=== PATIENT | female | born 1955 | race Hispanic/Latino ===

== ENCOUNTER 2017-08-04 09:46 | Inpatient (IN) | payer BC ==
[2017-08-04 10:49] LABS: Absolute Lymphocytes (CBC) 0.9 K/uL (0.7-4.9); Absolute Monocytes 0.1 K/uL (0.1-1.3); Absolute Neutrophil 1.9 K/uL (1.8-8.0); Basophils % 0.6 % (0-1.3); Hematocrit 38.5 % (36.0-45.0); Lymphocytes % 28.7 % (15.3-44.8); MCH 29.3 pg (27.0-35.0); MCV 90.8 fL (80-100); Monocytes % 4.7 % (3.3-12.3); RBC Red Blood Cell Count 4.24 M/uL (3.86-4.86)
[2017-08-04 10:52] LABS: Protime INR 0.97
[2017-08-04 10:57] LABS: Potassium 3.9 mEq/L (3.6-5.0)
--- NOTE | 2017-08-04 11:03 | RAD REPORT ---
EXAM DESCRIPTION: Danita Single View08/04/2017 10:55 am CLINICAL HISTORY: Chest pain COMPARISON: July 2016 FINDINGS: The lungs appear clear of acute infiltrate. The heart is normal size IMPRESSION: No acute abnormalities displayed
[2017-08-04] MEDS ORDERED: NA CHLORIDE 0.9% 500 ML ONE (11:13)
--- NOTE | 2017-08-04 11:22 | RAD REPORT ---
EXAM DESCRIPTION: CT - CTHCSPWOC - 08/04/2017 10:54 am CLINICAL HISTORY: Fall, slurred speech, head and neck injury COMPARISON: None. TECHNIQUE: Axial 5 mm thick images of the head were obtained. Axial 2 mm thick images of the cervic al spine were obtained with sagittal and coronal reconstruction images generated and reviewed. All CT scans are performed using dose optimization technique as appropriate and may include automated exposure control or mA/KV adjustment according to patient size. FINDINGS: No intracranial hemorrhage, mass, edema or acute intracranial finding. No acute cortical b ased infarction. No cortical edema or sulcal effacement. Ventricles are in proportion to any volume l oss. No extra-axial fluid collections. Mastoid air cells and paranasal sinuses are clear. No globe or orbit abnormality seen. Alexx tearing 1 PE wake are knee all all go move or go launch with all or or go go for fall with macho th or for right upper go all Send For new spleen is bold is noted in all go no a fall No disk space n arrowing. No fracture or acute bony abnormality. No paraspinal mass or hematoma. IMPRESSION: No hemorrhage or acute cortical infarction. Atrophy and chronic ischemic changes are not ed. Negative CT cervical spine examination for acute or significant finding.
[2017-08-04 11:28] LABS: Albumin 3.7 g/dL (3.2-5.5); Bilirubin Direct 0.2 mg/dL (0-0.2); Bilirubin Total 0.8 mg/dL (0.3-1.2); CKMB Creatine Kinase MB 2.2 ng/ml (0.3-4.0); Magnesium 1.6 mg/dL (1.8-2.5); Protein, Total 6.8 g/dL (6.0-8.3)
[2017-08-04] MEDS ORDERED: MAGNESIUM SULFATE 1 gm IVPB 1 GM/100 ML BAG IV ONE (12:08)
[2017-08-04] MEDS ORDERED: INSULIN -REGULAR HUMAN 50 UNIT/0.5 ML ML ONE (12:08)
[2017-08-04 12:24] LABS: Barbiturates NEGATIVE; Benzodiazepines POSITIVE; Cocaine NEGATIVE; METHAMPHETAM NEGATIVE; Opiates NEGATIVE; Phencyclidine NEGATIVE; THC Cannibis NEGATIVE
--- NOTE | 2017-08-04 12:34 | EDPHYS ---
Physician Documentation [facility] Name: Lisa Min Age: 61 yrs Sex: Female : 1955 Arrival Date: 08/04/2017 Time: 09:48 Bed 8 Private MD: ED Physician Hiram Main HPI: 08/04 10:30 This 61 yrs old Female presents to ER via Wheelchair with complaints of Fall cp Injury. 10:30 The patient's problem is reported as slurred speech, multiple falls. cp 10:30 Onset: The symptoms/episode began/occurred last week, and became worse 2 day(s) ago. cp Duration: The episode is continuous. Historical: - Allergies: 10:08 No Known Allergies; aj - Home Meds: 10:08 gabapentin 300 mg oral cap 1 cap 3 times per day [Active]; Xanax 2 mg Oral tab daily aj [Active]; Levemir 100 unit/mL subcutaneous soln [Active]; - PMHx: 10:08 Hypertension; aj - PSHx: 10:08 Cholecystectomy; tummy tuck; gastric band; aj - Immunization history: Last tetanus immunization: - up to date. - Social history:: Smoking status: Patient/guardian denies using tobacco. ROS: 10:35 Constitutional: Negative for body aches, chills, fever, poor PO intake. cp 10:35 Eyes: Negative for injury, pain, redness, and discharge. cp 10:35 ENT: Negative for drainage from ear(s), ear pain, sore throat, difficulty swallowing, difficulty handling secretions. 10:35 Cardiovascular: Negative for chest pain, edema, palpitations. 10:35 Respiratory: Negative for cough, shortness of breath, wheezing. 10:35 Abdomen/GI: Positive for diarrhea, Negative for abdominal pain, vomiting, constipation, black/tarry stool, rectal bleeding. 10:35 Back: Negative for pain at rest, pain with movement, radiated pain. 10:35 Skin: Negative for cellulitis, rash. 10:35 Neuro: Positive for altered mental status, gait disturbance, speech changes, Negative for loss of consciousness, seizure activity, syncope, near syncope. 10:35 All other systems are negative. Exam: 10:42 ECG was reviewed by the Attending Physician. cp 10:45 Constitutional: The patient appears in no acute distress, alert, awake, cp non-diaphoretic, non-toxic, well developed, well nourished. 10:45 Head/Face: Normocephalic, atraumatic. cp 10:45 Eyes: Periorbital structures: appear normal, Pupils: equal, round, and reactive to light and accomodation, Extraocular movements: intact throughout, Conjunctiva: normal, no exudate, no injection, Sclera: no appreciated abnormality, Lids and lashes: appear normal, bilaterally. 10:45 ENT: External ear(s): are unremarkable, Ear canal(s): are normal, clear, TM's: bulging, is not appreciated, bilaterally, dullness, bilaterally, erythema, is not appreciated, bilaterally, Nose: is normal, Mouth: Lips: dry, Oral mucosa: dry, Posterior pharynx: Airway: no evidence of obstruction, patent, Uvula: midline, swelling, is not appreciated, erythema, is not appreciated, exudate, is not appreciated. 10:45 Neck: ROM/movement: is normal, is supple, without pain, no range of motions limitations, no meningismus, no nuchal rigidity, Lymph nodes: no appreciated lymphadenopathy. 10:45 Chest/axilla: Inspection: normal, Palpation: is normal, no crepitus, no tenderness. 10:45 Cardiovascular: Rate: normal, Rhythm: regular, Heart sounds: murmur, not appreciated, rub, not appreciated, gallop, not appreciated, Edema: is not appreciated, JVD: is not appreciated. 10:45 Respiratory: the patient does not display signs of respiratory distress, Respirations: normal, no use of accessory muscles, no retractions, no splinting, no tachypnea, labored breathing, is not present, Breath sounds: are clear throughout, no decreased breath sounds, no stridor, no wheezing. 10:45 Abdomen/GI: Inspection: abdomen appears normal, Bowel sounds: active, all quadrants, Palpation: abdomen is soft and non-tender, in all quadrants, rebound tenderness, is not appreciated, voluntary guarding, is not appreciated, involuntary guarding, is not appreciated. 10:45 Back: pain, is absent, ROM is normal. 10:45 Skin: cellulitis, is not appreciated, no rash present. 10:45 Neuro: Orientation: to person, place, situation, Mentation: able to follow commands, slow to respond, Cerebellar function: is grossly normal, Motor: moves all fours, strength is normal, Sensation: no obvious gross deficits, speech slurred. 11:34 Radiologist reports: no acute findings cp Vital Signs: 10:00 BP 153 / 83; Pulse 69; Resp 15; Temp 97.2; Pulse Ox 98% on R/A; Weight 66.22 kg; Height aj 5 ft. 6 in. (167.64 cm); Pain 0/10; 11:01 BP 128 / 66; Pulse 66; Resp 17; Pulse Ox 98% on R/A; jb1 12:00 BP 148 / 80; Pulse 67; Resp 14; Pulse Ox 100% on R/A; Pain 0/10; hb 13:00 BP 136 / 76; Pulse 68; Resp 15; Pulse Ox 100% on R/A; hb 14:00 BP 124 / 76; Pulse 70; Resp 16; Pulse Ox 100% on R/A; hb 10:00 Body Mass Index 23.56 (66.22 kg, 167.64 cm) aj Saima Coma Score: 10:00 Eye Response: spontaneous(4). Verbal Response: confused(4). Motor Response: obeys aj commands(6). Total: 14. Trauma Score (Adult): 10:00 Eye Response: spontaneous(1); Verbal Response: oriented(1); Motor Response: obeys aj commands(2); Systolic BP: > 89 mm Hg(4); Respiratory Rate: 10 to 29 per min(4); Saima Score: 15; Trauma Score: 12 12:00 Eye Response: spontaneous(1); Verbal Response: oriented(1); Motor Response: obeys hb commands(2); Systolic BP: > 89 mm Hg(4); Respiratory Rate: 10 to 29 per min(4); Saima Score: 15; Trauma Score: 12 13:00 Eye Response: spontaneous(1); Verbal Response: oriented(1); Motor Response: obeys hb commands(2); Systolic BP: > 89 mm Hg(4); Respiratory Rate: 10 to 29 per min(4); [place]ley Score: 15; Trauma Score: 12 MDM: 10:18 Patient medically screened. 12:30 Data reviewed: vital signs, nurses notes, lab test result(s), EKG, radiologic studies, cp CT scan, MRI, plain films. 12:30 Differential diagnosis: CVA, TIA, metabolic disorder, drug effects. Physician cp consultation: Dipika Espana MD was called at 12:30, was contacted at 12:30, regarding admission, to the telemetry unit. patient's condition, and will see patient in ED. 08/04 10:30 Order name: Basic Metabolic Panel; Complete Time: 11:30 cp 08/04 11:30 Interpretation: Normal except: GLUC 359; BUN 25; GFR 59. cp 08/04 10:30 Order name: BNP; Complete Time: 11:30 cp 08/04 10:30 Order name: CBC with Diff; Complete Time: 10:53 cp 08/04 10:54 Interpretation: Normal except: WBC 3.1; PLT 113; EOSINOPHIL % 7.0. cp 08/04 10:30 Order name: Ckmb; Complete Time: 11:30 cp 08/04 10:30 Order name: CPK; Complete Time: 11:30 cp 08/04 10:30 Order name: LFT's; Complete Time: 11:30 cp 08/04 11:30 Interpretation: Normal except: SGOT 186; SGPT 253; ALK 334. cp 08/04 10:30 Order name: Magnesium; Complete Time: 11:30 cp 08/04 12:17 Interpretation: Abnormal: MG 1.6. cp 08/04 10:30 Order name: PT-INR; Complete Time: 11:30 cp 08/04 10:30 Order name: Ptt, Activated; Complete Time: 11:30 cp 08/04 10:30 Order name: Troponin (emerg Dept Use Only); Complete Time: 11:30 cp 08/04 10:53 Order name: UDS; Complete Time: 12:25 cp 08/04 11:33 Order name: AMMONIA; Complete Time: 12:52 cp 08/04 11:33 Order name: Blood Culture Adult (2) cp 08/04 11:33 Order name: Lipase; Complete Time: 12:16 cp 08/04 12:17 Interpretation: Reviewed. cp 08/04 10:30 Order name: Urine Test (obtain specimen); Complete Time: 12:15 cp 08/04 10:30 Order name: XRAY Chest (1 view); Complete Time: 11:30 cp 08/04 10:30 Order name: EKG; Complete Time: 10:30 cp 08/04 10:30 Order name: Cardiac monitoring; Complete Time: 10: 08/04 10:30 Order name: EKG - Nurse/Tech; Complete Time: 10: 08/04 10:30 Order name: IV Saline Lock; Complete Time: 10: 08/04 10:30 Order name: CT Head C Spine; Complete Time: 11:30 08/04 11:55 Order name: MRI - Brain Wo Cont; Complete Time: 14:07 08/04 14:07 Interpretation: Report reviewed. 08/04 12:10 Order name: Urine Dipstick--Ancillary (enter results); Complete Time: 12:52 mw2 08/04 12:52 Interpretation: Within normal limits: USPGR >1.030; UBLD TRACE; UPROT 2+; U NIT cp POSITIVE; UESTR 1+. 08/04 13:21 Order name: Heart Healthy [facility] 08/04 13:47 Order name: Glucose, Ancillary Testing; Complete Time: 14:07 [facility] 08/04 15:00 Order name: US [facility] 08/04 10:30 Order name: Labs collected and sent; Complete Time: 10 08/04 10:30 Order name: O2 Per Protocol; Complete Time: : 08/04 10:30 Order name: O2 Sat Monitoring; Complete Time: : 08/04 10:30 Order name: Urine Dipstick-Ancillary (obtain specimen); Complete Time: 12:15 cp EC:42 Rate is 65 beats/min. Rhythm is regular. GA interval is normal. QRS interval is normal. cp QT interval is normal. No ST changes noted. Interpreted by me. Reviewed by me. Administered Medications: 11:16 Drug: NS 0.9% 500 ml Route: IV; Rate: bolus; Site: right antecubital; hb 12:15 Follow up: Response: No change in condition; IV Status: Completed infusion hb 12:18 Drug: Insulin Regular Human 10 units {Co-Signature: sv (Coco Cortez RN).} Route: hb IVP; Site: right antecubital; 13:30 Follow up: Response: No adverse reaction hb 12:18 Drug: Magnesium Sulfate 1 grams Route: IVPB; Infused Over: 1 hrs; Site: right hb antecubital; 13:30 Follow up: Response: No change in condition; IV Status: Completed infusion hb 13:35 Drug: Rocephin - (cefTRIAXone) 1 grams Route: IVPB; Infused Over: 30 mins; Site: right hb antecubital; 14:15 Follow up: Response: No adverse reaction; IV Status: Completed infusion hb Disposition: 16:41 Co-signature as Attending Physician, Hiram Main MD. rn Disposition: 08/04/17 12:33 Hospitalization ordered by Dipika Espana for Observation. Preliminary diagnosis are Other slipping, tripping and stumbling and falls, Slurred speech, Altered mental status, unspecified. - Bed requested for Telemetry/MedSurg (observation). - Status is Observation. sv - Condition is Stable. - Problem is new. - Symptoms are unchanged. UTI on Admission? Yes Signatures: Dispatcher [employer] Coco Manzano RN RN sv Myers, Amanda RN Hiram Leach MD MD rn Cliff Grant PA PA cp Baxter, Heather, RN RN [place], [facility] Coco Cortez RN Corrections: (The following items were deleted from the chart) 08/05 00:49 08/04 12:30 Physician consultation: Dipika Espana MD was called at 12:30, alexi truong
--- NOTE | 2017-08-04 12:34 | ER ---
Nurse's Notes [facility] Name: Lisa Min Age: 61 yrs Sex: Female : 1955 Arrival Date: 08/04/2017 Time: 09:48 Bed 8 Private MD: Diagnosis: Other slipping, tripping and stumbling and falls;Slurred speech;Altered mental status, unspecified Presentation: 08/04 10:00 Presenting complaint: Patient states: Reports falling yesterday and today at home. 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 Pupils are pinpoint. Care prior to arrival: None. Mechanism of Injury: No Mechanism of Injury. Trauma event details: Injury occurred in the [facility], Injury occurred: at home. Injury occurred: August 03, 2017. 10:00 Acuity: TAMMY 3 aj 10:00 Method Of Arrival: Wheelchair aj 10:05 Transition of care: patient was not received from another setting of care. Onset of aj symptoms was August 03, 2017. Initial Sepsis Screen: Does the patient meet any 2 criteria? Altered Mental Status. Does the patient have a suspected source of infection? No. Patient's initial sepsis screen is negative. Trauma Activation: Not Applicable Physician: ED Physician; Name: ; Notified At: ; Arrived At: Physician: General Surgeon; Name: ; Notified At: ; Arrived At: Physician: Radiology; Name: ; Notified At: ; Arrived At: Physician: Respiratory; Name: ; Notified At: ; Arrived At: Physician: Lab; Name: ; Notified At: ; Arrived At: Historical: - Allergies: 10:08 No Known Allergies; aj - Home Meds: 10:08 gabapentin 300 mg oral cap 1 cap 3 times per day [Active]; Xanax 2 mg Oral tab daily aj [Active]; Levemir 100 unit/mL subcutaneous soln [Active]; - PMHx: 10:08 Hypertension; aj - PSHx: 10:08 Cholecystectomy; tummy tuck; gastric band; aj - Immunization history: Last tetanus immunization: - up to date. - Social history:: Smoking status: Patient/guardian denies using tobacco. Screenin:00 Abuse screen: Denies threats or abuse. Denies injuries from another. Tuberculosis aj screening: No symptoms or risk factors identified. 10:30 Nutritional screening: No deficits noted. Fall Risk Total Manzanares Fall Scale indicates hb Low Risk Score (25-44 pts). Fall prevention measures have been instituted. Side Rails Up X 2 Frequent Obs/Assesments occuring Family Present and informed to notify staff if they need to leave bedside As available Patient and Family Educated on Fall Prevention Program and strategies. Primary Survey: 10:00 Breathing/Chest: Respiratory pattern: regular, Respiratory effort: spontaneous, aj unlabored, Breath sounds: clear, bilaterally. Chest inspection: symmetrical rise and fall of the chest. Circulation: Skin color: pink, Skin temperature: warm, dry. Disability Alert. 11:00 Reassessment Airway Airway Patent Breathing/Chest Respiratory pattern Regular hb Respiratory effort Spontaneous Unlabored Chest inspection Symmetrical Circulation Color [place] Disability Alert. 12:00 Reassessment Airway Airway Patent Breathing/Chest Respiratory pattern Regular hb Respiratory effort Spontaneous Unlabored Chest inspection Symmetrical Circulation Color [place] Disability Alert. 13:00 Reassessment Airway Airway Patent Breathing/Chest Respiratory pattern Regular hb Respiratory effort Spontaneous Unlabored Chest inspection Symmetrical Circulation Color [place] Temperature Warm Dry Disability Alert. 14:00 Reassessment Airway Airway Patent Breathing/Chest Respiratory pattern Regular hb Respiratory effort Spontaneous Unlabored Chest inspection Symmetrical Circulation Color [place] Temperature Warm Dry Disability Alert. Secondary Survey: 10:05 HEENT: No deficits noted. Gastrointestinal: No deficits noted. : No deficits noted. hb Musculoskeletal: No deficits noted. Assessment: 10:00 General: Appears in no apparent distress. comfortable, Behavior is calm, cooperative, aj appropriate for age. Pain: Denies pain. Neuro: Level of Consciousness is awake, obeys commands, obtunded, Oriented to person, place, situation, Speech is slurred. Respiratory: Airway is patent Respiratory effort is even, unlabored, Respiratory pattern is regular, symmetrical. GI: Reports nausea, vomiting. : Reports burning with urination. Derm: Skin is intact, is healthy with good turgor, Skin is pink, warm \T\ dry. normal. 11:00 Reassessment: Patient appears in no apparent distress at this time. No changes from hb previously documented assessment. Patient and/or family updated on plan of care and expected duration. Pain level reassessed. Family at bedside. 12:19 Reassessment: Patient appears in no apparent distress at this time. No changes from hb previously documented assessment. Patient and/or family updated on plan of care and expected duration. Pain level reassessed. Family remains at bedside. 13:15 Reassessment: Patient appears in no apparent distress at this time. No changes from hb previously documented assessment. Patient and/or family updated on plan of care and expected duration. Pain level reassessed. Vital Signs: 10:00 BP 153 / 83; Pulse 69; Resp 15; Temp 97.2; Pulse Ox 98% on R/A; Weight 66.22 kg; Height aj 5 ft. 6 in. (167.64 cm); Pain 0/10; 11:01 BP 128 / 66; Pulse 66; Resp 17; Pulse Ox 98% on R/A; jb1 12:00 BP 148 / 80; Pulse 67; Resp 14; Pulse Ox 100% on R/A; Pain 0/10; hb 13:00 BP 136 / 76; Pulse 68; Resp 15; Pulse Ox 100% on R/A; hb 14:00 BP 124 / 76; Pulse 70; Resp 16; Pulse Ox 100% on R/A; hb 10:00 Body Mass Index 23.56 (66.22 kg, 167.64 cm) aj [place] Coma Score: 10:00 Eye Response: spontaneous(4). Verbal Response: confused(4). Motor Response: obeys aj commands(6). Total: 14. Trauma Score (Adult): 10:00 Eye Response: spontaneous(1); Verbal Response: oriented(1); Motor Response: obeys aj commands(2); Systolic BP: > 89 mm Hg(4); Respiratory Rate: 10 to 29 per min(4); Saima Score: 15; Trauma Score: 12 12:00 Eye Response: spontaneous(1); Verbal Response: oriented(1); Motor Response: obeys hb commands(2); Systolic BP: > 89 mm Hg(4); Respiratory Rate: 10 to 29 per min(4); [place] Score: 15; Trauma Score: 12 13:00 Eye Response: spontaneous(1); Verbal Response: oriented(1); Motor Response: obeys hb commands(2); Systolic BP: > 89 mm Hg(4); Respiratory Rate: 10 to 29 per min(4); [place] Score: 15; Trauma Score: 12 ED Course: 09:48 Patient arrived in ED. as 10:00 Patient has correct armband on for positive identification. aj 10:02 Triage completed. aj 10:08 Arm band placed on left wrist. Patient placed in an exam room. aj 10:15 Patient maintains SpO2 saturation greater than 95% on room air. Thermoregulation: warm hb blanket given to patient. 10:16 Cliff Grant PA is PHCP. cp 10:16 Hiram Main MD is Attending Physician. cp 10:44 X-ray completed. Portable x-ray completed in exam room. Patient tolerated procedure jb2 well. 10:51 XRAY Chest (1 view) In Process Unspecified. EDMS 10:51 CT completed. Patient tolerated procedure well. Patient moved to CT via stretcher. sj Patient moved back from CT. 10:51 EKG done, by technology manager. reviewed by Hiram Main MD. at1 10:53 Initial lab(s) drawn, by me, sent to lab. Inserted saline lock: 22 gauge in right jb1 antecubital area, using aseptic technique. Blood collected. 10:54 CT Head C Spine In Process Unspecified. EDMS 11:11 Simin Mueller, DANICA is Primary Nurse. hb 11:55 First set of blood cultures drawn by me. jb1 12:10 Second set of blood cultures drawn by me. jb1 12:15 Urine collected: clean catch specimen, cloudy, tea colored. jb1 12:32 Dipika Espana MD is Hospitalizing Provider. cp 12:34 Patient moved to MRI via stretcher. em2 12:54 MRI - Brain Wo Cont In Process Unspecified. EDMS 13:49 Patient taken to ultrasound. aa4 15:15 No provider procedures requiring assistance completed. Patient admitted, IV remains in hb place. Administered Medications: 11:16 Drug: NS 0.9% 500 ml Route: IV; Rate: bolus; Site: right antecubital; hb 12:15 Follow up: Response: No change in condition; IV Status: Completed infusion hb 12:18 Drug: Insulin Regular Human 10 units {Co-Signature: sv (Coco Cortez RN).} Route: hb IVP; Site: right antecubital; 13:30 Follow up: Response: No adverse reaction hb 12:18 Drug: Magnesium Sulfate 1 grams Route: IVPB; Infused Over: 1 hrs; Site: right hb antecubital; 13:30 Follow up: Response: No change in condition; IV Status: Completed infusion hb 13:35 Drug: Rocephin - (cefTRIAXone) 1 grams Route: IVPB; Infused Over: 30 mins; Site: right hb antecubital; 14:15 Follow up: Response: No adverse reaction; IV Status: Completed infusion hb Intake: 13:00 PO: 250ml; Total: 250ml. hb Output: 13:00 Urine: 400ml (Voided); Total: 400ml. hb Outcome: 12:33 Decision to Hospitalize by Provider. cp 15:15 Patient's length of stay in the Emergency Department was greater than 2 hours. hb Admitted, awaiting room assignmentPatient's length of stay extended due to 15:15 Admitted to Med/surg accompanied by tech, family with patient, via stretcher, with hb chart, Report called to DANICA Ha 15:15 Condition: stable 15:36 Patient left the ED. sv Signatures: Dispatcher [employer] EDMS Trevor Morton Stephanie, RN RN sv Myers, Amanda, RN RN aj Buechter, Jesse jb2 Caroline Strange Amelia as Frazier, Amanda aa4 Montes, Enrique em2 Kasey gaines, director of estate EKG Tat1 Cliff Grant PA PA cp Simin Mueller RN RN Coco mar
[2017-08-04 12:45] LABS: Urine Blood TRACE (NEG); Urine Glucose TRACE (NEG); Urine Protein 2+ (NEG); Urine Specific Gravity >1.030 (1.005-1.030); Urine pH 5.5 (5.0-7.0)
[2017-08-04] MEDS ORDERED: ACETAMINOPHEN 500 MG TAB PO PRN (13:19)
[2017-08-04] MEDS ORDERED: ONDANSETRON 4 MG/2 ML VIAL IV PRN (13:19)
--- NOTE | 2017-08-04 13:23 | RAD REPORT ---
EXAM DESCRIPTION: MRI - Brain Wo Cont - 08/04/2017 1:06 pm CLINICAL HISTORY: Slurred speech. Status post fall yesterday. COMPARISON: August 04, [address] TECHNIQUE: Axial, sagittal, and coronal magnetic images of the brain were obtained. Contrast was not requested FINDINGS: No abnormal signal is present within the brain. Diffusion-weighted/ADC mapping does not reveal evidence of acute infarction. The ventricles are normal caliber. An extra-axial fluid collection is not present The sinuses and mastoids are clear. IMPRESSION: Unremarkable unenhanced brain MRI
--- NOTE | 2017-08-04 13:38 | EKG ---
Test Date: 2017-08-04 Test Time: 10:36:13 Drapery Estimator: BELINDA MEASUREMENT RESULTS: Intervals: Rate: 65 IL: 172 QRSD: 78 QT: 406 QTc: 422 Pepin: P: 54 IL: 172 QRS: 13 T: 22 INTERPRETIVE STATEMENTS: Normal sinus rhythm Normal ECG Compared to ECG 11/25/2012 14:11:37 Sinus tachycardia no longer present Electronically Signed On 08-04-17 13:38:04 CDT by Christian Garcia
[2017-08-04] MEDS ORDERED: CEFTRIAXONE/SWI 1gm 1 GM/10 ML SYR ONE (13:39)
--- NOTE | 2017-08-04 13:54 | P.HP ---
Certification for Inpatient Patient admitted to: Inpatient With expected LOS: >2 Midnights Patient will require the following post-hospital care: None Practitioner: I am a practitioner with admitting privileges, knowledge of patient current condition, hospital course, and medical plan of care. Services: Services provided to patient in accordance with Admission requirements found in Title 42 Section 412.3 of the Code of Federal Regulations Patient History Date of Service: 08/04/17 Primary Care Provider: Dr Lopez. Reason for admission: AMS History of Present Illness: 61 y/o F with PMHX of HTN and diabetes presented to the ER with complains of fall. States she has been having frequent falls at home. Some are mechanical fall and others are after she takes her Medication. Today she was in her usual state of health and started having slurring of speech right after she took her Xanax and had a episode of fall. She then decided to come to the hospital for further care. She has recently changed PCP and now see Dr Lopez for all her care. She denies having any CP, SOB, N or V at this time. In the ED she was found of have UTI and sluggish speech and thus was referred to medicine for admission. Allergies No Known Allergies Allergy (Verified 04/30/15 21:58) Home Medications: Tizanidine HCl 4 mg PO Q12HP 11/25/12 Insulin Glargine Human [Lantus*] 50 unit SQ BEDTIME 02/23/13 Alprazolam 1 tab PO BEDTIME 04/30/15 Amitriptyline [Elavil*] 1 tab PO BEDTIME 04/30/15 Metformin HCl [Glucophage] 1 tab PO BIDWM 04/30/15 Ramipril 1 tab PO BEDTIME 04/30/15 Ciprofloxacin HCl [Cipro] 500 mg PO BID #15 tablet 05/02/15 Oseltamivir Phosphate [Tamiflu] 75 mg PO BID #10 capsule 05/02/15 - Past Medical/Surgical History Diabetic: Yes -: HTN -: DM -: High Lipids -: Anxiety -: Hysterectomy -: Cholesectomy -: Back surgery -: Tummy tuck -: Gastric Banding - Family History Father -: Heart disease, Diabetes Notes: emphysema Mother -: Hypertension, Cancer Notes: pancreatic cancer - Social History Alcohol use: Yes CD- Drugs: Yes Caffeine use: No Review of Systems General: As per HPI Physical Examination - Physical Exam General: Alert, Oriented x1 HEENT: Atraumatic Neck: Supple Respiratory: Normal air movement, Rhonchi/gurgles Cardiovascular: Regular rate/rhythm, Normal S1 S2 Gastrointestinal: Normal bowel sounds, Soft and benign, Non-distended, No tenderness Musculoskeletal: No tenderness Integumentary: No rashes Neurological: Normal strength at 5/5 x4 extr, Normal tone, Abnormal speech Lymphatics: No axilla or inguinal lymphadenopathy - Studies Laboratory Data (last 24 hrs) 08/04/17 10:30: Lipase 30 08/04/17 10:30: PT 11.4, INR 0.97, APTT 24.8 08/04/17 10:30: WBC 3.1 L D, Hgb 12.4, Hct 38.5, Plt Count 113 L D 08/04/17 10:30: B-Natriuretic Peptide 37 08/04/17 10:30: Sodium 137, Potassium 3.9, BUN 25 H, Creatinine 0.96, Glucose 359 H, Magnesium 1.6 L, Total Bilirubin 0.8, AST 186 H D, ALT 253 H D, Alkaline Phosphatase 334 H Assessment and Plan - Problems (Diagnosis) (1) Altered mental status Current Visit: Yes Status: Acute Plan: Most Likely toxic encephalopathy due to UTI however polypharmacy cannot be excluded. -UA with Nitrite positive. -Started on Rocephin -Hold Gabapentin and xanax from home -Head CT and MRI negative. Qualifiers: Altered mental status type: delirium Qualified Code(s): R41.0 - Disorientation, unspecified (2) UTI (urinary tract infection) Current Visit: Yes Status: Acute Plan: UA with Nitrite + -Urine culture pending -On Rocephin Qualifiers: Urinary tract infection type: acute cystitis Hematuria presence: without hematuria Qualified Code(s): N30.00 - Acute cystitis without hematuria (3) Polypharmacy Current Visit: Yes Status: Acute Plan: Pt is currently on Xanax, Gabapentin and other benzo she takes from her PCP office. Will hold all at this time. (4) HTN (hypertension) Current Visit: Yes Status: Acute Plan: Will restart home medication Qualifiers: Hypertension type: essential hypertension Qualified Code(s): I10 - Essential (primary) hypertension (5) Diabetes Current Visit: Yes Status: Acute Plan: Will start on ISS Qualifiers: Diabetes mellitus type: type 2 Diabetes mellitus long term care pharmacist insulin use: without long term care pharmacist use Diabetes mellitus complication status: without complication Qualified Code(s): E11.9 - Type 2 diabetes mellitus without complications (6) Elevated LFTs Current Visit: Yes Status: Acute Plan: Will get Hepatitis panel and US of the abdomen done now. Discharge Plan: Home Plan to discharge in: 24 Hours - Advance Directives Does patient have a Living Will: No Does patient have a Durable POA for Healthcare: No - Code Status/Comfort Care Code Status Assessed: Yes Critical Care: No
[2017-08-04] MEDS: NA CHLORIDE 0.9% 1,000 ML IV SCH (14:00)
--- NOTE | 2017-08-04 15:00 | RAD REPORT ---
EXAM DESCRIPTION: US - Liver Only - 08/04/2017 2:05 pm CLINICAL HISTORY: Abdominal pain/abnormal liver function test enzymes COMPARISON: 2012 FINDINGS: The liver has an increased echotexture. This limits evaluation for lesions. The liver is n ormal size. Hepatopetal flow is present. The spleen measures 10 centimeters. IMPRESSION: Increased hepatic echotexture consistent with fatty infiltration. Unremarkable ultrasound spleen
[2017-08-04] MEDS ORDERED: D50W 25 GM/50 ML SYRINGE IV PRN (15:43)
[2017-08-04] MEDS ORDERED: GLUCAGON 1 MG/VIAL IM PRN (15:43)
[2017-08-04 15:53] VITALS: BMI 23.6
[2017-08-04 16:08] LABS: RPR Titer ND
[2017-08-04] MEDS: INSULIN -REGULAR HUMAN 50 UNIT/0.5 ML ML SQ SCH ×2 (16:26→22:00)
[2017-08-04 19:54] LABS: RPR (Rapid Plasma Reagin) NON-REACT (NON-REACT)
[2017-08-04] MEDS ORDERED: ALPRAZOLAM 0.5 MG TABLET PO PRN (21:14)
[2017-08-04] MEDS: AMITRIPTYLINE 25 MG TAB PO PRN (22:01)
[2017-08-05] MEDS: NA CHLORIDE 0.9% 1,000 ML IV SCH ×3 (00:42→22:11)
[2017-08-05 04:14] LABS: Absolute Lymphocytes (CBC) 1.2 K/uL (0.7-4.9); Absolute Monocytes 0.2 K/uL (0.1-1.3); Absolute Neutrophil 1.8 K/uL (1.8-8.0); Basophils % 0.7 % (0-1.3); Eosinophils % 5.9 % (0-4.4); Hematocrit 35.1 % (36.0-45.0); Lymphocytes % 34.6 % (15.3-44.8); MCH 29.4 pg (27.0-35.0); MCV 89.6 fL (80-100); MPV 9.5 fL (7.6-11.3); RBC Red Blood Cell Count 3.91 M/uL (3.86-4.86)
[2017-08-05 05:12] LABS: Albumin 3.3 g/dL (3.2-5.5); Potassium 3.9 mEq/L (3.6-5.0)
[2017-08-05] MEDS ORDERED: POTASSIUM CL SA 10 MEQ TAB PO ONE (06:30)
[2017-08-05] MEDS: INSULIN -REGULAR HUMAN 50 UNIT/0.5 ML ML SQ SCH ×4 (07:30→22:10)
[2017-08-05] MEDS: PANTOPRAZOLE 40 MG INJ IVP SCH (10:25)
[2017-08-05] MEDS: CEFTRIAXONE/SWI 1gm 1 GM/10 ML SYR IV SCH (10:26)
[2017-08-05] MEDS ORDERED: ACETYLCYST 6,000 MG/30 ML VIAL PO ONE (12:19)
--- NOTE | 2017-08-05 12:27 | P.PN ---
Subjective Date of Service: 08/05/17 Primary Care Provider: Dr Lopez. Chief Complaint: AMS Pt seen and examined at bedside. Currently AAOx 3. Does have sluggish speech but improved from yesterday. Pt states that she might have been taking tylenol, hydrocodone and alcohol for her pain and has been taking xanax if she gets mad or cannot sleep at night due to her snoring. She does abuse the medication at home per family Review of Systems General: As per HPI Physical Examination - Vital Signs Temperature: 97.7 F Blood Pressure: 148/72 Pulse: 73 Respirations: 16 Pulse Ox (%): 93 - Physical Exam General: Alert, In no apparent distress, Oriented x3 HEENT: Atraumatic Neck: Supple Respiratory: Clear to auscultation bilaterally, Normal air movement Cardiovascular: Regular rate/rhythm, Normal S1 S2 Gastrointestinal: Normal bowel sounds, Soft and benign, Non-distended, No tenderness Musculoskeletal: No tenderness Integumentary: No rashes Neurological: Normal strength at 5/5 x4 extr, Normal affect, Abnormal speech ( Sluggish speech), Abnormal tone Lymphatics: No axilla or inguinal lymphadenopathy - Studies Medications List Reviewed: Yes Assessment & Plan - Problems (Diagnosis) (1) Altered mental status Onset Date: 08/05/17 Current Visit: Yes Status: Resolved Plan: Most Likely toxic encephalopathy vs polypharmacy -UA with Nitrite positive. -Started on Rocephin -Culture pending -Hold Gabapentin and xanax from home -Possiblity of tylenol abuse as well -Head CT and MRI negative. Qualifiers: Altered mental status type: delirium Qualified Code(s): R41.0 - Disorientation, unspecified (2) UTI (urinary tract infection) Onset Date: 08/05/17 Current Visit: Yes Status: Acute Plan: UA with Nitrite + -Urine culture pending -On Rocephin Qualifiers: Urinary tract infection type: acute cystitis Hematuria presence: without hematuria Qualified Code(s): N30.00 - Acute cystitis without hematuria (3) Polypharmacy Onset Date: 08/05/17 Current Visit: Yes Status: Acute Plan: Pt is currently on Xanax, Gabapentin, Hydrocodone and other benzo. Will hold all at this time. -Pt has been abusing her medication and taking more than prescribed. 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 of tylenol and hydrocodone abuse -Started on mucomyst PO -Tylenol level -US of the abdomen with Fatty infiltration -Alcohol abuse as well. Discharge Plan: Home Plan to discharge in: 48 Hours - Code Status/Comfort Care Code Status Assessed: Yes Critical Care: No
[2017-08-05] MEDS: ACETYLCYST 6,000 MG/30 ML VIAL PO SCH ×2 (18:33→22:11)
[2017-08-05] MEDS: AMITRIPTYLINE 25 MG TAB PO PRN (22:14)
[2017-08-06] MEDS: ACETYLCYST 6,000 MG/30 ML VIAL PO SCH ×6 (01:29→21:27)
[2017-08-06] MEDS: NA CHLORIDE 0.9% 1,000 ML IV SCH ×2 (05:36→17:03)
[2017-08-06 06:19] LABS: Absolute Lymphocytes (CBC) 1.4 K/uL (0.7-4.9); Absolute Monocytes 0.3 K/uL (0.1-1.3); Basophils % 0.4 % (0-1.3); Eosinophils % 4.2 % (0-4.4); Hematocrit 34.6 % (36.0-45.0); Lymphocytes % 34.9 % (15.3-44.8); MCH 30.1 pg (27.0-35.0); MCV 88.5 fL (80-100); MPV 9.5 fL (7.6-11.3); Monocytes % 8.2 % (3.3-12.3); RBC Red Blood Cell Count 3.91 M/uL (3.86-4.86)
[2017-08-06 06:53] LABS: Albumin 3.1 g/dL (3.2-5.5); Bilirubin Total 0.6 mg/dL (0.3-1.2); Magnesium 1.5 mg/dL (1.8-2.5); Phosphorus 2.4 mg/dL (2.5-4.3); Potassium 4.1 mEq/L (3.6-5.0); Protein, Total 5.7 g/dL (6.0-8.3)
[2017-08-06] MEDS ORDERED: MAGNESIUM 50% 3 GM in NA CHLORIDE 0.9% 100 ML IV ONE (08:19)
[2017-08-06] MEDS ORDERED: Magnesium Sulfate 2gm IVPB 2 G/50 ML BAG IV SCH (09:00)
[2017-08-06] MEDS: INSULIN -REGULAR HUMAN 50 UNIT/0.5 ML ML SQ SCH ×4 (09:03→21:27)
[2017-08-06] MEDS: PANTOPRAZOLE 40 MG INJ IVP SCH (09:03)
[2017-08-06] MEDS: CEFTRIAXONE/SWI 1gm 1 GM/10 ML SYR IV SCH (09:03)
--- NOTE | 2017-08-06 13:14 | P.PN ---
Subjective Date of Service: 08/06/17 Primary Care Provider: Dr Lopez. Chief Complaint: AMS Pt seen and examined at bedside. Currently AAOx 3. Improved markedly. Doing well overall. No complains to offer overnight. Review of Systems General: As per HPI Physical Examination - Vital Signs Temperature: 97.0 F Blood Pressure: 122/67 Pulse: 71 Respirations: 18 Pulse Ox (%): 95 - Physical Exam General: Alert, In no apparent distress, Oriented x3 HEENT: Atraumatic, PERRLA, EOMI Neck: Supple, JVD not distended Respiratory: Clear to auscultation bilaterally, Normal air movement Cardiovascular: Regular rate/rhythm, Normal S1 S2 Gastrointestinal: Normal bowel sounds, No tenderness Musculoskeletal: No tenderness Integumentary: No rashes Neurological: Normal speech, Normal tone, Normal affect Lymphatics: No axilla or inguinal lymphadenopathy - Studies Laboratory Data (last 24 hrs) 08/06/17 05:32: Sodium 139, Potassium 4.1, BUN 14, Creatinine 0.72, Glucose 209 H, Phosphorus 2.4 L, Magnesium 1.5 L, Total Bilirubin 0.6, AST 108 H D, ALT 192 H, Alkaline Phosphatase 372 H 08/06/17 05:32: WBC 3.9 L, Hgb 11.7 L, Hct 34.6 L, Plt Count 112 L Medications List Reviewed: Yes Assessment & Plan - Problems (Diagnosis) (1) Altered mental status Onset Date: 08/05/17 Current Visit: Yes Status: Resolved Plan: Most Likely toxic encephalopathy vs polypharmacy. Resolved now -UA with Nitrite positive. -Started on Rocephin -Culture with mixed jasbir -Hold Gabapentin and xanax from home -Possiblity of tylenol abuse as well -Head CT and MRI negative. Qualifiers: Altered mental status type: delirium Qualified Code(s): R41.0 - Disorientation, unspecified (2) UTI (urinary tract infection) Onset Date: 08/05/17 Current Visit: Yes Status: Acute Plan: UA with Nitrite + -Urine culture with mixed jasbir -On Rocephin Qualifiers: Urinary tract infection type: acute cystitis Hematuria presence: without hematuria Qualified Code(s): N30.00 - Acute cystitis without hematuria (3) Polypharmacy Onset Date: 08/05/17 Current Visit: Yes Status: Acute Plan: Pt is currently on Xanax, Gabapentin, Hydrocodone and other benzo. Will hold all at this time. -Pt has been abusing her medication and taking more than prescribed. 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 of tylenol and hydrocodone abuse. LFT improving today -Started on mucomyst PO -Tylenol level -US of the abdomen with Fatty infiltration -Alcohol abuse as well. Discharge Plan: Home Plan to discharge in: 24 Hours - Code Status/Comfort Care Code Status Assessed: Yes Critical Care: No
[2017-08-07] MEDS: ACETYLCYST 6,000 MG/30 ML VIAL PO SCH ×5 (01:51→17:11)
[2017-08-07] MEDS: NA CHLORIDE 0.9% 1,000 ML IV SCH ×2 (01:53→12:00)
[2017-08-07 05:05] LABS: Absolute Lymphocytes (CBC) 1.2 K/uL (0.7-4.9); Absolute Monocytes 0.4 K/uL (0.1-1.3); Absolute Neutrophil 2.3 K/uL (1.8-8.0); Basophils % 0.4 % (0-1.3); Eosinophils % 3.5 % (0-4.4); Hematocrit 36.9 % (36.0-45.0); Lymphocytes % 30.2 % (15.3-44.8); MCH 29.4 pg (27.0-35.0); MPV 9.4 fL (7.6-11.3); Monocytes % 9.5 % (3.3-12.3); RBC Red Blood Cell Count 4.14 M/uL (3.86-4.86)
[2017-08-07 05:15] LABS: Albumin 3.3 g/dL (3.2-5.5); Bilirubin Total 0.5 mg/dL (0.3-1.2); Magnesium 1.7 mg/dL (1.8-2.5); Potassium 4.1 mEq/L (3.6-5.0)
[2017-08-07] MEDS ORDERED: AMITRIPTYLINE 25 MG TAB PO PRN (05:23)
[2017-08-07] MEDS ORDERED: AMITRIPTYLINE 25 MG TAB PO ONE (05:23)
[2017-08-07] MEDS ORDERED: TIZANIDINE 4 MG TABLET PO ONE (05:37)
[2017-08-07] MEDS ORDERED: MAGNESIUM SULFATE 1 gm IVPB 1 GM/100 ML BAG IV ONE (08:00)
[2017-08-07] MEDS: PANTOPRAZOLE 40 MG INJ IVP SCH (08:41)
[2017-08-07] MEDS: CEFTRIAXONE/SWI 1gm 1 GM/10 ML SYR IV SCH (08:41)
[2017-08-07] MEDS: INSULIN -REGULAR HUMAN 50 UNIT/0.5 ML ML SQ SCH ×3 (08:42→17:12)
--- NOTE | 2017-08-07 12:43 | P.DS ---
Admission Date: 08/06/17 Discharge Date: 08/07/17 Primary Care Provider: Dr Miller. Disposition: ROUTINE DISCHARGE Discharge Condition: GOOD Reason for Admission: AMS - Problems (1) Altered mental status Onset Date: 08/05/17 Current Visit: Yes Status: Resolved Qualifiers: Altered mental status type: delirium Qualified Code(s): R41.0 - Disorientation, unspecified (2) UTI (urinary tract infection) Onset Date: 08/05/17 Current Visit: Yes Status: Resolved Qualifiers: Urinary tract infection type: acute cystitis Hematuria presence: without hematuria Qualified Code(s): N30.00 - Acute cystitis without hematuria (3) Polypharmacy Onset Date: 08/05/17 Current Visit: Yes Status: Acute (4) HTN (hypertension) Onset Date: 08/05/17 Current Visit: Yes Status: Acute Qualifiers: Hypertension type: essential hypertension Qualified Code(s): I10 - Essential (primary) hypertension (5) Diabetes Onset Date: 08/05/17 Current Visit: Yes Status: Acute Qualifiers: Diabetes mellitus type: type 2 Diabetes mellitus terminal carman insulin use: without residential use Diabetes mellitus complication status: without complication Qualified Code(s): E11.9 - Type 2 diabetes mellitus without complications (6) Elevated LFTs Onset Date: 08/05/17 Current Visit: Yes Status: Acute Brief History of Present Illness: 61 y/o F with PMHX of HTN and diabetes presented to the ER with complains of fall. States she has been having frequent falls at home. Some are mechanical fall and others are after she takes her Medication. Today she was in her usual state of health and started having slurring of speech right after she took her Xanax and had a episode of fall. She then decided to come to the hospital for further care. She has recently changed PCP and now see Dr Miller for all her care. She denies having any CP, SOB, N or V at this time. In the ED she was found of have UTI and sluggish speech and thus was referred to medicine for admission. Hospital Course: Overall during the hospital stay patient remained stable The patient was initially admitted to the hospital for altered mental status. Was initially thought to have urinary tract infection or a TIA. Head CT was done which was completely negative for TIA. UA was done which was initially consistent with urinary tract infection however urine culture was negative for any bacteria. 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 Patient most likely had a polypharmacy due to her Xanax and Tylenol abuse. Patient's family member at bedside including daughter and son stated that patient usually takes more than prescribed of her Xanax and Tylenol. Patient did have a prescription for [place] unknown dosage unknown amount which she did take over the weekend. Patient also had a cruise trip to [place] during the weekend where she went and had a lot of alcohol per the daughter. While here in the hospital patient was found to have elevated LFTs and fatty infiltration on the liver ultrasound. Patient was started on Mucomyst for possibility of Tylenol toxicity. Patient's liver function did improve markedly. Patient was educated extensively on drug abuse and potential for liver failure. Patient's family at bedside was demonstrated understanding. Patient also educated extensively on refraining from use of Xanax, Tylenol, ibuprofen, or any other products that could have a effect on the liver and abuse potential. Patient's mentation did improve day 2 of hospitalization after all her medications were held here in the hospital. Patient to be discharged today under stable condition and will continue taking her Mucomyst for total of 4 doses at home. Again patient was advised it extensively on stopping the use of Xanax, Tylenol, [place], ibuprofen or any other Tylenol containing products. Patient was also asked to refrain from using alcohol or smoking or any other illicit drugs. Patient, , mother- in-law at bedside all demonstrated understanding. Vital Signs/Physical Exam: Temp Pulse Resp BP Pulse Ox 97.8 F 84 16 178/86 H 95 08/07/17 08:00 08/07/17 08:00 08/07/17 08:00 08/07/17 08:00 08/07/17 08:00 General: Alert, In no apparent distress HEENT: Atraumatic, PERRLA, EOMI Neck: Supple, JVD not distended Respiratory: Clear to auscultation bilaterally, Normal air movement Cardiovascular: Regular rate/rhythm, Normal S1 S2 Gastrointestinal: Normal bowel sounds, No tenderness Musculoskeletal: No tenderness Integumentary: No rashes Neurological: Normal speech, Normal tone, Normal affect Lymphatics: No axilla or inguinal lymphadenopathy Laboratory Data at Discharge: WBC 4.0 K/uL (4.3-10.9) L 08/07/17 04:35 Hgb 12.2 g/dL (12.0-15.0) 08/07/17 04:35 Hct 36.9 % (36.0-45.0) 08/07/17 04:35 Plt Count 111 K/uL (152-406) L 08/07/17 04:35 PT 11.4 SECONDS (9.5-12.5) 08/04/17 10:30 INR 0.97 08/04/17 10:30 APTT 24.8 SECONDS (24.3-36.9) 08/04/17 10:30 Sodium 134 mEq/L (135-145) L 08/07/17 04:35 Potassium 4.1 mEq/L (3.6-5.0) 08/07/17 04:35 BUN 15 mg/dL (6-20) 08/07/17 04:35 Creatinine 0.76 mg/dL (0.44-1.00) 08/07/17 04:35 Glucose 308 mg/dL (65-120) H 08/07/17 04:35 Phosphorus 2.4 mg/dL (2.5-4.3) L 08/06/17 05:32 Magnesium 1.7 mg/dL (1.8-2.5) L 08/07/17 04:35 Total Bilirubin 0.5 mg/dL (0.3-1.2) 08/07/17 04:35 AST 52 IU/L (10-42) H 08/07/17 04:35 ALT 146 IU/L (10-60) H 08/07/17 04:35 Alkaline Phosphatase 330 IU/L (42-121) H 08/07/17 04:35 B-Natriuretic Peptide 37 pg/ml (<=100) 08/04/17 10:30 Lipase 30 U/L (22-51) 08/04/17 10:30 Home Medications: Acetylcyst [Mucomyst 20%*] 23 ml PO Q4H #4 vial 08/07/17 Gabapentin [Neurontin*] 08/07/17 Nebivolol HCl [Bystolic] 08/07/17 New Medications: Acetylcyst [Mucomyst 20%*] 23 ml PO Q4H #4 vial Patient Discharge Instructions: Please f/u with Dr miller in the clinic in 1 to 2 days post discharge. You were admitted to the hospital for AMS. Initially there was a concern for Urinary tract infeciton however, your culture is negative and thus you will not need antibiotics for that. It was determined that your AMS was secondary to Xanax and Pain medication abuse. In addition you also had elevated LFT's most likely from liver damange from tylenol and alcohol abuse. You had liver u/s done here in the hospital which was consistent with Fatty infiltration. You are asked to stop taking the following medication listed below. STOP MEDICATION. 1. Xanax. 2. [place]. 3. Any medication containing tylenol or codeine. 4. Any medication that is NSAID's. Ibuprofen, motrin and aleeve are few examples. NEW MEDICATION. Mucomyst for 4 total dose. You will be taking 23ML every 4 hours starting 2100 tonite. Diet: Regular Activity: Ad charan Followup: Jerod Miller MD [Primary Care Provider] - 1-2 Days Sue Rhodes MD [ACTIVE - CAN ADMIT] - 1 Week
[2017-08-07 12:51] VITALS: BP 168/76; TEMP 98
[2017-08-07 15:46] VITALS: O2SAT 96
[2017-08-08 04:47] LABS: HBsAG Nonreactive (Nonreactive); Hepatitis A IgM Antibody Nonreactive
== END 2017-08-07 17:33 | disposition home or self-care (01) | DRG 897 ==
LOC: ER 09:46 → ERHOLD 13:24 → INTOOBSV 13:24 → 4TH 15:06 → OBSVTOIN 08-06 08:36
PROVIDERS: ADMIT Family Medicine; ATTEND Family Medicine
DX: F13.10 Sedative, hypnotic or anxiolytic abuse, uncomplicated (principal); N30.00 Acute cystitis without hematuria; F55.8 Abuse of other non-psychoactive substances; T39.1X1A Poisoning by 4-Aminophenol derivatives, accidental (unintentional), initial encounter; R41.82 Altered mental status, unspecified; F10.10 Alcohol abuse, uncomplicated; I10 Essential (primary) hypertension; E11.9 Type 2 diabetes mellitus without complications; R79.89 Other specified abnormal findings of blood chemistry; Y92.009 Unspecified place in unspecified non-institutional (private) residence as the place of occurrence of the external cause
CPT/HCPCS: 36415; 70450; 70551; 71045; 72125; 76705; 80048; 80053; 80074; 80076; 80307; 80329; 81003; 82140; 82306; 82550; 82553; 82607; 82962; 83690; 83735; 83880; 84100; 84484; 85025; 85610; 85730; 86592; 87040; 87086; 87088; 93005; 96361; 96365; 96367; 96375; 99285; C9113; G0378; J0696; J3475; J7030

== ENCOUNTER 2020-02-19 15:41 | Emergency (ER) | payer BC ==
[2020-02-19] MEDS ORDERED: NA CHLORIDE 0.9% 500 ML ONE (16:37)
[2020-02-19] MEDS ORDERED: D50W 25 GM/50 ML SYRINGE/VIAL IV ONE (16:37)
[2020-02-19 16:44] LABS: Absolute Lymphocytes (CBC) 1.1 K/uL (0.7-4.9); Basophils % 0.5 % (0-1.3); Hematocrit 43.2 % (36.0-45.0); Lymphocytes % 15.9 % (15.3-44.8); MPV 8.9 fL (7.6-11.3); RBC Red Blood Cell Count 4.55 M/uL (3.86-4.86)
[2020-02-19 16:53] LABS: Protime INR 0.92
[2020-02-19 17:05] LABS: BUN Blood Urea Nitrogen 28 mg/dL (7-18); Bicarbonate 28 mmol/L (21-32); Glucose Level 64 mg/dL (74-106); Magnesium 1.9 mg/dL (1.8-2.4); Potassium 3.7 mmol/L (3.5-5.1); Sodium Level 140 mmol/L (136-145); Troponin (Emerg Dept Use Only) < 0.02 ng/mL (0.0-0.045)
--- NOTE | 2020-02-19 19:04 | EDPHYS ---
Physician Documentation [facility] Name: Lisa Min Age: 64 yrs Sex: Female : 1955 Arrival Date: 02/19/2020 Time: 15:48 Bed 26 Private MD: ED Physician Malcolm Romero HPI: 02/18 16:06 This 64 yrs old Female presents to ER via EMS with complaints of Hypoglycemia. cp 16:06 The patient or guardian reports hyperglycemia, that was potentially precipitated by cp taking daily medications for diabetes and not eating. 16:06 Onset: The symptoms/episode began/occurred today. cp 16:06 Current symptoms: In the emergency department the patient's symptoms have improved, cp moderately, is more alert. Patient was found by this afternoon unconscious on couch. Blood glucose was checked and found to be 20. EMS called and patient given D10. Patient admits to administering 40 units of Lantus instead of 20 due to elevated blood glucose today. Historical: - Allergies: 15:53 No Known Allergies; jd3 - Home Meds: 15:53 Metformin Oral [Active]; jd3 15:57 insulin [Active]; jd3 - PMHx: 15:53 Hypertension; jd3 15:57 Diabetes - IDDM; jd3 - PSHx: 15:53 Cholecystectomy; tummy tuck; gastric band; jd3 - Immunization history:: Adult Immunizations up to date. - Social history:: Smoking status: Patient denies any tobacco usage or history of. ROS: 16:10 Constitutional: Negative for body aches, chills, fever, poor PO intake. cp 16:10 Eyes: Negative for injury, pain, redness, and discharge. cp 16:10 Cardiovascular: Negative for chest pain, edema, palpitations. 16:10 Respiratory: Negative for cough, shortness of breath, wheezing. 16:10 Abdomen/GI: Negative for abdominal pain, nausea, vomiting, and diarrhea. 16:10 Neuro: Positive for confusion, Negative for headache, syncope, weakness. 16:10 Endocrine: Positive for 16:10 All other systems are negative. Exam: 16:15 Constitutional: The patient appears in no acute distress, alert, awake, cp non-diaphoretic, well developed, well nourished. 16:15 Head/Face: Normocephalic, atraumatic. cp 16:15 Eyes: Periorbital structures: appear normal, Pupils: equal, round, and reactive to light and accomodation, Extraocular movements: intact throughout, Conjunctiva: normal, no exudate, no injection, Sclera: no appreciated abnormality, Lids and lashes: appear normal, bilaterally. 16:15 ENT: External ear(s): are unremarkable, Nose: is normal, Mouth: Lips: moist, Oral mucosa: pink and intact, moist, Posterior pharynx: is normal, airway is patent, no erythema, no exudate. 16:15 Chest/axilla: Inspection: normal, Palpation: is normal, no crepitus, no tenderness. 16:15 Cardiovascular: Rate: normal, Rhythm: regular, Edema: is not appreciated, JVD: is not appreciated. 16:15 Respiratory: the patient does not display signs of respiratory distress, Respirations: normal, no use of accessory muscles, no retractions, labored breathing, is not present, Breath sounds: are clear throughout, no decreased breath sounds, no stridor, no wheezing. 16:15 Abdomen/GI: Inspection: abdomen appears normal, Bowel sounds: active, all quadrants, Palpation: abdomen is soft and non-tender, in all quadrants. 16:15 Neuro: Orientation: to person, place \T\ time. Mentation: able to follow commands, slow to respond, Cerebellar function: is grossly normal, Motor: moves all fours, strength is normal, Sensation: is normal. 16:25 ECG was reviewed by the Attending Physician. cp Vital Signs: 15:53 BP 177 / 99; Pulse 88; Resp 16 S; Temp 97.6(O); Pulse Ox 100% on R/A; Weight 79.83 kg jd3 (R); Height 5 ft. 6 in. (167.64 cm) (R); Pain 3/10; 17:16 BP 152 / 69; Pulse 72; Resp 17 S; Pulse Ox 99% on R/A; jd3 18:15 BP 142 / 86; Pulse 84; Resp 17 S; Pulse Ox 100% on R/A; jd3 15:53 Body Mass Index 28.41 (79.83 kg, 167.64 cm) jd3 MDM: 16:05 Patient medically screened. cp 16:30 Differential diagnosis: DKA, hyperglycemia, hypoglycemic episode. cp 19:02 Data reviewed: vital signs, nurses notes, lab test result(s), EKG, and as a result, I cp will discharge patient. 19:02 Counseling: I had a detailed discussion with the patient and/or guardian regarding: the cp historical points, exam findings, and any diagnostic results supporting the discharge/admit diagnosis, lab results, to return to the emergency department if symptoms worsen or persist or if there are any questions or concerns that arise at home. Response to treatment: the patient's symptoms have markedly improved after treatment, patient is well hydrated. VSS. Patient feeling better. Blood glucose stable \T\123. Will discharge to home for continued monitoring. 02/18 16:01 Order name: Glucose, Ancillary Testing; Complete Time: 16:07 EDMS 02/18 16:08 Order name: Basic Metabolic Panel; Complete Time: 17:06 02/18 18:30 Interpretation: Normal except: GLUC 64; BUN 28; GFR 41. 02/18 16:08 Order name: CBC with Diff; Complete Time: 17:06 02/18 18:30 Interpretation: Normal except: MCV 94.8; DAMARIS% 76.8. 02/18 16:08 Order name: Magnesium; Complete Time: 17:06 02/18 16:08 Order name: PT-INR; Complete Time: 17:06 02/18 16:08 Order name: Troponin (emerg Dept Use Only); Complete Time: 17:06 02/18 16:08 Order name: EKG; Complete Time: 16:09 02/18 16:08 Order name: Cardiac monitoring; Complete Time: 16:22 02/18 17:07 Order name: Diet Ada 2000 [place]; Complete Time: 17:07 02/18 18:03 Order name: Glucose, Ancillary Testing; Complete Time: 18:30 EDMS 02/18 18:30 Interpretation: GLUC,ANCIL 121; Reviewed. 02/18 18:47 Order name: Urine Dipstick--Ancillary (enter results); Complete Time: 17:28 bd 02/18 18:56 Order name: Glucose, Ancillary Testing; Complete Time: 17:28 EDMS 02/18 16:08 Order name: EKG - Nurse/Tech; Complete Time: 16:22 02/18 16:08 Order name: IV Saline Lock; Complete Time: 16:09 02/18 16:08 Order name: Labs collected and sent; Complete Time: 16:26 cp 02/18 16:08 Order name: O2 Per Protocol; Complete Time: 16: cp 02/18 16:08 Order name: O2 Sat Monitoring; Complete Time: 16: cp 02/18 17:42 Order name: Accucheck Blood Glucose; Complete Time: 17:54 cp EC:25 Rate is 74 beats/min. Rhythm is regular. IL interval is normal. QRS interval is normal. cp QT interval is normal. T waves are Inverted in lead aVR. Interpreted by me. Reviewed by me. Administered Medications: 16:31 Drug: NS 0.9% 500 ml Route: IV; Rate: bolus; Site: right antecubital; jd3 19:12 Follow up: Response: No adverse reaction; IV Status: Completed infusion; IV Intake: jd3 500ml 16:31 Drug: D50W 50 ml Route: IVP; Site: right antecubital; jd3 17:30 Follow up: Response: No adverse reaction jd3 Point of Care Testing: Blood Glucose: 15:53 Blood Glucose: 98 mg/dL; jd3 Ranges: Critical Glucose Levels:Adult <50 mg/dl or >400 mg/dl <40 mg/dl or >180 mg/dl Disposition: 02/19 06:56 Co-signature as Attending Physician, Malcolm Romero MD I agree with the assessment and kdr plan of care. Disposition: 02/19/20 19:04 Discharged to Home. Impression: Hypoglycemia, unspecified. - Condition is Stable. - Discharge Instructions: Hypoglycemia, Blood Glucose Monitoring, Adult. - Medication Reconciliation Form, Thank You Letter, Antibiotic Education, Prescription Opioid Use form. - Follow up: Private Physician; When: 1 - 2 days; Reason: Recheck today's complaints. - Problem is new. - Symptoms have improved. Signatures: Dispatcher [employer] Malcolm No MD MD kdr Cliff Grant PA PA cp Davies, Jonathon RN RN jd3 Corrections: (The following items were deleted from the chart) 02/18 15:57 15:53 PMHx: Diabetes - NIDDM; jd3 jd3 19:12 19:04 02/19/2020 19:04 Discharged to Home. Impression: Hypoglycemia, unspecified. jd3 Condition is Stable. Forms are Medication Reconciliation Form, Thank You Letter, Antibiotic Education, Prescription Opioid Use. Follow up: Private Physician; When: 1 - 2 days; Reason: Recheck today's complaints. Problem is new. Symptoms have improved. cp 02/19 17:24 02/18 16:06 Patient was found by this afternoon unconscious on couch. Blood cp glucose was checked and found to be 20. EMS called and patient given . cp 02/19 17:29 02/18 19:02 Response to treatment: the patient's symptoms have markedly improved after cp treatment, patient is well hydrated. VSS. Patient feeling better. Blood glucose stable. Will discharge to home for continued monitoring, cp
--- NOTE | 2020-02-19 19:04 | ER ---
Nurse's Notes [facility] Name: Lisa Min Age: 64 yrs Sex: Female : 1955 Arrival Date: 02/19/2020 Time: 15:48 Bed 26 Private MD: Diagnosis: Hypoglycemia, unspecified Presentation: 02/18 15:48 Chief complaint: EMS states: "We were called out for an unresponsive pt with low blood jd3 sugar. on scene the pt was unresponsive and diaphoretic. er initial blood sugar was 20. we started an 18 G IV to the right AC and started her on D10. we got her awake and able to get her blood sugar up to 215. it was 132 when we arrived here. she is still drowsy, but she is has woken up and is answer questions appropriately.". Coronavirus screen: At this time, the client does not indicate any symptoms associated with coronavirus-19. Ebola Screen: Patient negative for fever greater than or equal to 101.5 degrees Fahrenheit, and additional compatible Ebola Virus Disease symptoms. Initial Sepsis Screen: Does the patient meet any 2 criteria? No. Patient's initial sepsis screen is negative. Does the patient have a suspected source of infection? No. Patient's initial sepsis screen is negative. Risk Assessment: Do you want to hurt yourself or someone else? Patient reports no desire to harm self or others. Onset of symptoms was February 19, 2020. 15:48 Method Of Arrival: EMS: [facility] jd3 15:48 Acuity: TAMMY 2 jd3 Historical: - Allergies: 15:53 No Known Allergies; jd3 - Home Meds: 15:53 Metformin Oral [Active]; jd3 15:57 insulin [Active]; jd3 - PMHx: 15:53 Hypertension; jd3 15:57 Diabetes - IDDM; jd3 - PSHx: 15:53 Cholecystectomy; tummy tuck; gastric band; jd3 - Immunization history:: Adult Immunizations up to date. - Social history:: Smoking status: Patient denies any tobacco usage or history of. Screenin:54 Abuse screen: Denies threats or abuse. Nutritional screening: No deficits noted. jd3 Tuberculosis screening: No symptoms or risk factors identified. Fall Risk Ambulatory Aid- None/Bed Rest/Nurse Assist (0 pts). Gait- Normal/Bed Rest/Wheelchair (0 pts) Mental Status- Oriented to own ability (0 pts). Total Manzanares Fall Scale indicates No Risk (0-24 pts). Assessment: 15:53 General: Appears in no apparent distress. uncomfortable, Behavior is calm, cooperative, jd3 appropriate for age. Pain: Complains of pain in right leg Quality of pain is described as aching. Neuro: Level of Consciousness is awake, alert, obeys commands, Oriented to person, place, time, situation. Cardiovascular: Denies chest pain, Capillary refill < 3 seconds Patient's skin is warm and dry. Respiratory: Airway is patent Respiratory effort is even, unlabored, Respiratory pattern is regular, symmetrical, Denies cough, shortness of breath. GI: No signs and/or symptoms were reported involving the gastrointestinal system. : No signs and/or symptoms were reported regarding the genitourinary system. EENT: No signs and/or symptoms were reported regarding the EENT system. Derm: Skin is intact, Skin is dry, Skin is normal, Skin temperature is warm. Musculoskeletal: Circulation, motion, and sensation intact. Range of motion: intact in all extremities. 17:16 Reassessment: Patient appears in no apparent distress at this time. No changes from jd3 previously documented assessment. Patient and/or family updated on plan of care and expected duration. Pain level reassessed. Patient is alert, oriented x 3, equal unlabored respirations, skin warm/dry/pink. 17:44 Reassessment: Diet tray delivered to pt. jl7 18:15 Reassessment: Patient appears in no apparent distress at this time. No changes from jd3 previously documented assessment. Patient and/or family updated on plan of care and expected duration. Pain level reassessed. Patient is alert, oriented x 3, equal unlabored respirations, skin warm/dry/pink. 19:11 Reassessment: Patient appears in no apparent distress at this time. Patient and/or [facility] family updated on plan of care and expected duration. Pain level reassessed. Patient is alert, oriented x 3, equal unlabored respirations, skin warm/dry/pink. Patient states feeling better. Vital Signs: 15:53 BP 177 / 99; Pulse 88; Resp 16 S; Temp 97.6(O); Pulse Ox 100% on R/A; Weight 79.83 kg jd3 (R); Height 5 ft. 6 in. (167.64 cm) (R); Pain 3/10; 17:16 BP 152 / 69; Pulse 72; Resp 17 S; Pulse Ox 99% on R/A; jd3 18:15 BP 142 / 86; Pulse 84; Resp 17 S; Pulse Ox 100% on R/A; jd3 15:53 Body Mass Index 28.41 (79.83 kg, 167.64 cm) jd3 ED Course: 15:48 Patient arrived in ED. jd3 15:52 Triage completed. jd3 15:53 Arm band placed on. jd3 15:54 Cliff Grant PA is PHCP. cp 15:54 Malcolm Romero MD is Attending Physician. cp 15:55 Patient has correct armband on for positive identification. Bed in low position. Call j light in reach. Side rails up X2. Adult w/ patient. school bus monitor on. Pulse ox on. NIBP on. 15:55 PO fluids given. jd3 15:56 Kasi Hou RN is Primary Nurse. jd3 16:22 Maintain EMS IV. Dressing intact. Good blood return noted. Site clean \\T\\ dry. Gauge \\T\\ davian 3 site: 20 G right AC. 16:24 Initial lab(s) drawn, by me, sent to lab. jp3 16:24 Patient maintains SpO2 saturation greater than 95% on room air. jp3 17:54 Diet: Patient given a regular meal tray. jp3 18:30 Urine collected: clean catch specimen, clear, alex colored. jp3 19:11 No provider procedures requiring assistance completed. IV discontinued, intact, jd3 bleeding controlled, No redness/swelling at site. Pressure dressing applied. Administered Medications: 16:31 Drug: NS 0.9% 500 ml Route: IV; Rate: bolus; Site: right antecubital; jd3 19:12 Follow up: Response: No adverse reaction; IV Status: Completed infusion; IV Intake: jd3 500ml 16:31 Drug: D50W 50 ml Route: IVP; Site: right antecubital; jd3 17:30 Follow up: Response: No adverse reaction jd3 Point of Care Testing: Blood Glucose: 15:53 Blood Glucose: 98 mg/dL; jd3 Ranges: Intake: 19:12 IV: 500ml; Total: 500ml. jd3 Outcome: 19:04 Discharge ordered by . cp 19:12 Discharged to home ambulatory, with family. jd3 19:12 Condition: stable 19:12 Discharge instructions given to patient, Instructed on discharge instructions, follow up and referral plans. Demonstrated understanding of instructions, follow-up care. 19:12 Patient left the ED. jd3 Signatures: Cliff Grant PA PA cp Leal, Jahala, RN RN jl7 Kasi Hou RN RN jd3 Martin Craig jp3 Corrections: (The following items were deleted from the chart) 15:57 15:53 PMHx: Diabetes - NIDDM; jd3 jd3 19:02 18:10 Urine collected: clean catch specimen, clear, alex colored, jp3 jp3
[2020-02-19 19:33] LABS: Urine Blood TRACE (NEG); Urine Glucose 2+ (NEG); Urine Protein NEGATIVE (NEG)
[2020-02-20 02:02] VITALS: TEMP 97.6
[2020-02-20 02:05] VITALS: BP 142/86; O2SAT 100
--- NOTE | 2020-02-20 12:06 | EKG ---
Test Date: 2020-02-19 Test Time: 16:18:03 Wire Drawing Machine Tender: CARMEN MEASUREMENT RESULTS: Intervals: Rate: 74 IL: 176 QRSD: 84 QT: 404 QTc: 448 [place]: P: 60 IL: 176 QRS: 0 T: 42 INTERPRETIVE STATEMENTS: Normal sinus rhythm Normal ECG Compared to ECG 08/04/2017 10:36:13 No significant changes Electronically Signed On 02-20-20 12:03:21 FICTION AND NONFICTION PROSE WRITER by Reynaldo Das
== END 2020-02-19 19:12 | disposition home or self-care (01) ==
LOC: ER 15:41
DX: E11.649 Type 2 diabetes mellitus with hypoglycemia without coma (principal); I10 Essential (primary) hypertension; Z98.84 Bariatric surgery status
CPT/HCPCS: 96361; 93005; 85025; 80048; 36415; 83735; 85610; 82947 ×3; 81003; 84484; 96374; 99285; J7040

== ENCOUNTER 2020-09-13 08:01 | Emergency (ER) | payer BC ==
[2020-09-13 10:22] LABS: SARS-COV-2 RT PCR NEGATIVE (NEGATIVE)
--- NOTE | 2020-09-13 10:23 | EDPHYS ---
Physician Documentation [facility] Name: Lisa Min Age: 64 yrs Sex: Female : 1955 Arrival Date: 09/13/2020 Time: 08:06 Bed Waiting Private MD: Les Salvador ED Physician Malcolm Romero HPI: 09/13 09:45 This 64 yrs old Female presents to ER via Ambulatory with complaints of Cough, jr8 Congestion. 09:45 The patient or guardian reports cough, that is intermittent, described as moderate, jr8 with no sputum. Onset: The symptoms/episode began/occurred gradually, 1 week(s) ago. Severity of symptoms: At their worst the symptoms were moderate. Modifying factors: The symptoms are alleviated by nothing, the symptoms are aggravated by nothing. Associated signs and symptoms: The patient has no apparent associated signs or symptoms. The patient has not experienced similar symptoms in the past. The patient has not recently seen a physician. Historical: - Allergies: 08:14 No Known Allergies; jd3 - Home Meds: 08:14 insulin [Active]; jd3 - PMHx: 08:14 Diabetes - IDDM; Hypertension; jd3 - PSHx: 08:14 Cholecystectomy; tummy tuck; gastric band; jd3 - Immunization history:: Adult Immunizations up to date. - Social history:: Smoking status: Patient denies any tobacco usage or history of. ROS: 09:45 Eyes: Negative for injury, pain, redness, and discharge, ENT: Negative for injury, jr8 pain, and discharge, Neck: Negative for injury, pain, and swelling, Cardiovascular: Negative for chest pain, palpitations, and edema, Abdomen/GI: Negative for abdominal pain, nausea, vomiting, diarrhea, and constipation, Back: Negative for injury and pain, MS/Extremity: Negative for injury and deformity, Skin: Negative for injury, rash, and discoloration, Neuro: Negative for headache, weakness, numbness, tingling, and seizure. 09:45 Respiratory: Positive for cough, with no reported sputum, Negative for dyspnea on exertion, shortness of breath. Exam: 09:45 Eyes: Pupils equal round and reactive to light, extra-ocular motions intact. Lids and jr8 lashes normal. Conjunctiva and sclera are non-icteric and not injected. Cornea within normal limits. Periorbital areas with no swelling, redness, or edema. ENT: Nares patent. No nasal discharge, no septal abnormalities noted. Tympanic membranes are normal and external auditory canals are clear. Oropharynx with no redness, swelling, or masses, exudates, or evidence of obstruction, uvula midline. Mucous membranes moist. Neck: Trachea midline, no thyromegaly or masses palpated, and no cervical lymphadenopathy. Supple, full range of motion without nuchal rigidity, or vertebral point tenderness. No Meningismus. Cardiovascular: Regular rate and rhythm with a normal S1 and S2. No gallops, murmurs, or rubs. Normal PMI, no JVD. No pulse deficits. Abdomen/GI: Soft, non-tender, with normal bowel sounds. No distension or tympany. No guarding or rebound. No evidence of tenderness throughout. Back: No spinal tenderness. No costovertebral tenderness. Full range of motion. Skin: Warm, dry with normal turgor. Normal color with no rashes, no lesions, and no evidence of cellulitis. MS/ Extremity: Pulses equal, no cyanosis. Neurovascular intact. Full, normal range of motion. Neuro: Awake and alert, GCS 15, oriented to person, place, time, and situation. Motor strength 5/5 in all extremities. Sensory grossly intact. 09:45 Respiratory: the patient does not display signs of respiratory distress, Respirations: normal, Breath sounds: rales, that are mild, are heard in the right posterior lower lobe, wheezing: expiratory that is mild, is heard in the right posterior lower lobe. Vital Signs: 08:14 BP 129 / 77; Pulse 86; Resp 18 S; Temp 97.4(TE); Pulse Ox 95% on R/A; Weight 79.83 kg jd3 (R); Height 5 ft. 6 in. (167.64 cm) (R); Pain 8/10; 08:14 Body Mass Index 28.41 (79.83 kg, 167.64 cm) jd3 MDM: 09:45 Data reviewed: vital signs, nurses notes, lab test result(s), radiologic studies, plain jr8 films. Data interpreted: Pulse oximetry: on room air is 95 %. Interpretation: normal. Counseling: I had a detailed discussion with the patient and/or guardian regarding: the historical points, exam findings, and any diagnostic results supporting the discharge/admit diagnosis, lab results, radiology results, the need for outpatient follow up, a family practitioner, to return to the emergency department if symptoms worsen or persist or if there are any questions or concerns that arise at home. 10:07 Patient medically screened. 8 09/13 09:41 Order name: XRAY Chest Pa And Lat (2 Views) [facility] 09/13 10:22 Order name: COVID-19/FLU A+B; Complete Time: 10:24 EDMS Administered Medications: No medications were administered Disposition: 18:51 Co-signature as Attending Physician, Malcolm Romero MD I agree with the assessment and kdr plan of care. Disposition: 09/13/20 10:23 Discharged to Home. Impression: Pneumonia due to other specified bacteria. - Condition is Stable. - Discharge Instructions: Community-Acquired Pneumonia, Adult. - Prescriptions for promethazine- DM 6.25-15 mg/5 mL Oral syrup - take 5 milliliter by ORAL route every 6 hours as needed; 100 milliliter. Levaquin 500 mg Oral Tablet - take 1 tablet by ORAL route once daily for 10 days; 10 tablet. Albuterol Sulfate 90 mcg/actuation - inhale 1-2 puff by INHALATION route every 4-6 hours; 1 Inhaler. - Medication Reconciliation Form, Thank You Letter, Antibiotic Education, Prescription Opioid Use form. - Follow up: Private Physician; When: 7 - 10 days; Reason: Recheck today's complaints, Continuance of care, Re-evaluation by your physician. - Problem is new. - Symptoms have improved. Signatures: Dispatcher [employer] [facility] Malcolm Romero MD MD [facility] Unruly Hand PA PA jr8 Kasi Hou RN RN jd3 Corrections: (The following items were deleted from the chart) 09:39 08:55 CORONAVIRUS+MR.LAB.BRZ ordered. [facility] 09:40 08:55 Influenza Screen (A \T\ B)+BA.LAB.BRZ ordered. [facility] 10:31 10:23 09/13/2020 10:23 Discharged to Home. Impression: Pneumonia due to other specified jd3 bacteria. Condition is Stable. Forms are Medication Reconciliation Form, Thank You Letter, Antibiotic Education, Prescription Opioid Use. Follow up: Private Physician; When: 7 - 10 days; Reason: Recheck today's complaints, Continuance of care, Re-evaluation by your physician. Problem is new. Symptoms have improved. jr8
--- NOTE | 2020-09-13 10:23 | ER ---
Nurse's Notes [facility] Name: Lisa Min Age: 64 yrs Sex: Female : 1955 Arrival Date: 09/13/2020 Time: 08:06 Bed Waiting Private MD: Les Salvador Diagnosis: Pneumonia due to other specified bacteria Presentation: 09/13 08:12 Chief complaint: Patient states: "I have been coughing and feeling bad for about a week jd3 now. I took care of a sick family member recently, but between the cough and not feeling well, I can't go on like this any more.". Coronavirus screen: cough unrelated to allergies, difficulty breathing, Client presents with at least one sign or symptom that may indicate coronavirus-19. Standard/surgical mask placed on the client. Provider contacted for isolation considerations. Ebola Screen: Patient negative for fever greater than or equal to 101.5 degrees Fahrenheit, and additional compatible Ebola Virus Disease symptoms. Initial Sepsis Screen: Does the patient meet any 2 criteria? No. Patient's initial sepsis screen is negative. Does the patient have a suspected source of infection? No. Patient's initial sepsis screen is negative. Risk Assessment: Do you want to hurt yourself or someone else? Patient reports no desire to harm self or others. Onset of symptoms was September 03, 2020. 08:12 Method Of Arrival: Ambulatory jd3 08:12 Acuity: TAMMY 3 jd3 Historical: - Allergies: 08:14 No Known Allergies; jd3 - Home Meds: 08:14 insulin [Active]; jd3 - PMHx: 08:14 Diabetes - IDDM; Hypertension; jd3 - PSHx: 08:14 Cholecystectomy; tummy tuck; gastric band; jd3 - Immunization history:: Adult Immunizations up to date. - Social history:: Smoking status: Patient denies any tobacco usage or history of. Screenin:30 Abuse screen: Denies threats or abuse. Nutritional screening: No deficits noted. jd3 Tuberculosis screening: No symptoms or risk factors identified. Fall Risk Ambulatory Aid- None/Bed Rest/Nurse Assist (0 pts). Gait- Normal/Bed Rest/Wheelchair (0 pts) Mental Status- Oriented to own ability (0 pts). Total [place] Fall Scale indicates No Risk (0-24 pts). Assessment: 10:29 General: Appears in no apparent distress. comfortable, Behavior is calm, cooperative, jd3 appropriate for age. Pain: Complains of pain in throat Quality of pain is described as aching. Neuro: Level of Consciousness is awake, alert, obeys commands, Oriented to person, place, time, situation. Cardiovascular: Denies chest pain, Capillary refill < 3 seconds Patient's skin is warm and dry. Respiratory: Airway is patent Respiratory effort is even, unlabored, Respiratory pattern is regular, symmetrical, Breath sounds are diminished in right posterior lower lobe. GI: No signs and/or symptoms were reported involving the gastrointestinal system. : No signs and/or symptoms were reported regarding the genitourinary system. EENT: No signs and/or symptoms were reported regarding the EENT system. Derm: Skin is intact, Skin is dry, Skin is normal, Skin temperature is warm. Musculoskeletal: Circulation, motion, and sensation intact. Range of motion: intact in all extremities. Vital Signs: 08:14 BP 129 / 77; Pulse 86; Resp 18 S; Temp 97.4(TE); Pulse Ox 95% on R/A; Weight 79.83 kg jd3 (R); Height 5 ft. 6 in. (167.64 cm) (R); Pain 8/10; 08:14 Body Mass Index 28.41 (79.83 kg, 167.64 cm) jd3 ED Course: 08:06 Patient arrived in ED. mr 08:06 Les Salvador MD is Private Physician. mr 08:13 Triage completed. jd3 08:14 Arm band placed on. jd3 09:34 Unruly Hand PA is PHCP. jr8 09:34 Malcolm Romero MD is Attending Physician. jr8 09:55 XRAY Chest Pa And Lat (2 Views) In Process Unspecified. EDMS 10:28 Kasi Hou RN is Primary Nurse. jd3 10:30 Patient has correct armband on for positive identification. Bed in low position. Call jd3 light in reach. Side rails up X 1. Adult w/ patient. Pulse ox on. NIBP on. 10:30 No provider procedures requiring assistance completed. Patient did not have IV access jd3 during this emergency room visit. Administered Medications: No medications were administered Outcome: 10:23 Discharge ordered by . megan 10: Discharged to home ambulatory, with family. alexandria 10: Condition: stable 10:31 Discharge instructions given to patient, Instructed on discharge instructions, follow up and referral plans. medication usage, Demonstrated understanding of instructions, follow-up care, medications, Prescriptions given X 3. 10:31 Patient left the ED. jd3 Signatures: Dispatcher [employer] [facility] Rosa Dyer Josh, PA PA jr8 Davies, Jonathon, RN RN jd3
--- NOTE | 2020-09-13 10:30 | RAD REPORT ---
EXAM DESCRIPTION: RAD - Chest Pa And Lat (2 Views) - 09/13/2020 9:57 am CLINICAL HISTORY: COUGH COMPARISON: Single-view chest July 2017 TECHNIQUE: Frontal and lateral views of the chest were obtained. FINDINGS: The lungs are slightly underinflated. Right lung field is clear. Subtle increased density seen in the medial left lung base on the frontal projection. No clear correlate on the lateral view. This may be some atelectasis and low lung volume artifact. Medial left base infiltrate is possible bu t needs correlation with clinical presentation. This can be monitored as warranted. Heart size is normal and central vasculature is within normal limits. No pleural effusion or pneu mothorax seen. No acute bony finding noted. No aortic abnormality. IMPRESSION: Subtle increase in lung parenchymal density superimposed on the left heart border medial left base. Low lung volume atelectasis is favored however, early infiltrate cannot be excluded and needs correla tion with clinical presentation. Follow-up imaging can be obtained as warranted.
[2020-09-13 10:37] VITALS: BP 129/77; TEMP 97.4; O2SAT 95
== END 2020-09-13 10:31 | disposition home or self-care (01) ==
LOC: ER 08:01
DX: J15.8 Pneumonia due to other specified bacteria (principal); Z20.822 Contact with and (suspected) exposure to COVID-19; E11.9 Type 2 diabetes mellitus without complications; I10 Essential (primary) hypertension
CPT/HCPCS: 0240U; 71046; 99283

== ENCOUNTER 2022-11-09 00:04 | Inpatient (IN) | payer BC, OTHER, SELFPAY ==
--- OUTSIDE RECORDS SUMMARY | 2022-11-09 00:08 | XMS REPORT | Continuity of Care Document ---
:1955 [address] 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 due 3 Se ybold to to 00:00: - conditions conditions 00 Ex terna classified classified l elsewhere elsewhere History of History of Disease Active Nadiya alvarez back back 3-15 Seybold surgery surgery 00:00: - 00 Externa l Class 1 Class 1 Disease Active Mary obesity obesity 3-15 Seybold due to due to 00:00: - excess excess 00 Externa calories calories l with with serious serious comorbidit comorbidit y and body y and body mass index mass index (BMI) of (BMI) of 31.0 to 31.0 to 31.9 in 31.9 in adult adult 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 3-15 Seybol d mellitus mellitus 00:00: - with with 00 Externa hyperglyce hyperglyce l rod, with rod, with long-term long-term current current use of use of insulin insulin DM type 2 DM type 2 Disease Active Eugenio sey with with 3-15 Seybold diabetic diabetic 00:00: - mixed mixed 00 Externa hyperlipid hyperlipid l emia emia 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 3-15 Se ybold athy athy 00:00: - associated associated 00 Ex terna with type with type l 2 diabetes 2 diabetes mellitus mellitus Stress Stress Disease Active Mary incontinen incontinen 3-15 Se ybold ce of ce of 00:00: - urine urine 00 Externa l Seasonal Seasonal Disease Active Kelse y allergic allergic 3-15 Seybol d rhinitis rhinitis 00:00: - due to due to 00 Externa pollen pollen l Current Current Disease Active Mary mild mild 3-15 Seybold episode of episode of 00:00: - 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 depressive depressive l disorder disorder without without prior prior episode episode Primary Primary Disease Active Mary hypertensi hypertensi 3-15 Se ybold on on 00:00: - 00 Externa l Primary Primary Disease Active Mary insomnia insomnia 3-15 Seybol d 00:00: - 00 Externa l Chronic Chronic Disease Active Mary bilateral bilateral 3-15 Seyb old low back low back 00:00: - pain pain 00 Externa without without l sciatica sciatica DDD DDD Disease Active Mary (degenerat (degenerat 3-15 Se ybold henry disc henry disc 00:00: - disease), disease), 00 Exte rna lumbar lumbar l Allergies, Adverse Reactions, Alerts This patient has no known allergies or adverse reactions. Social History Social Habit Start Date Stop Date Quantity Comments Source Alcohol intake 2022-07-09 2022-07-09 Current drinker Jun y Seybold - 00:00:00 00:00:00 of alcohol External (finding) Tobacco use and 2022-06-24 2022-06-24 Smokeless tobacco Ke deisy Seybold - exposure 00:00:00 00:00:00 non-user External Sex [birth year] Mary Se ybold - 00:00:00 00:00:00 External Smoking Status Start Date Stop Date Source Never smoked tobacco Mary Seyb old - External Medications Ordered Filled Start Stop Current Ordering Indication Dosage Frequency Signature Comments Components Source Medication Medication Date Date Medication? Clinician (SIG) Name Name Amitriptkatiana 2022- No [id number] 75mg Take 75 mg Mary ne HCl 75 3-30 03-30 by mouth 2 Sey bold MG oral 14:07: 00:00 times - Tablet 35 :00 daily Externa l Duloxetine 2022- No [id number] 60mg Take 60 mg Mary HCl 60 MG 3-30 03-30 by mouth Seybo ld oral Cap DR 14:07: 00:00 daily - Particles 25 :00 Externa l Quetiapine 2022- No [id number] 50mg Take 50 mg Mary Fumarate 50 3-30 03-30 by mouth Sey bold MG oral 14:07: 00:00 nightly - Tablet 01 :00 Externa l Rosuvastati Yes [id number] 5mg Take 5 mg Mary n Calcium 5 3-30 3 by mouth Seyb old MG oral 13:43: daily - Tablet 17 Externa l Gabapentin Yes [id number] 300mg Take 300 Mary 300 MG oral 3-30 mg by Seybold Capsule 13:43: mouth 3 - 17 times Externa daily l Montelukast Yes [id number] 10mg Take 10 mg Mary (SINGULAIR) 3-30 by mouth Seyb old 10 MG oral 13:43: nightly - Tablet 17 Externa tablet l Propranolol Yes 120mg Take 120 K elsey HCl CR 120 3-30 mg by Seybold MG oral 13:43: mouth - Capsule 24 17 daily Externa Hour l Sustained Release Insulin Yes [id number] 10 units Mary Glargine 3-30 3 sc every Seybold (Basaglar 00:00: day - KwikPen) 00 Externa 100 UNIT/ML l subcutaneou s Solution Pen-injecto r Blood Yes [id number] Check BS Eugenio sey Glucose 3-30 twice Seybold Monitoring 00:00: daily - Suppl 00 Externa (Blood l Glucose Monitor System) w/Device does not apply Kit Glucose Yes [id number] 1{each} 1 each by Mary Blood in 3-30 other Seybold vitro Strip 00:00: route - 00 daily Externa Check BS l twice daily Quetiapine Yes [id number] 50mg Take 1 Ke lsey Fumarate 50 3-30 tablet (50 Se ybold MG oral 00:00: mg total) - Tablet 00 by mouth Externa nightly l Duloxetine Yes [id number] 60mg Take 1 Mary HCl 60 MG 3-[address] Cap [address] 00:00: (60 mg - Particles 00 total) by Exter na mouth l daily Propranolol Yes 120mg Take 120 K elsey HCl CR 120 3-15 mg by Seybold MG oral 15:37: mouth - Capsule 24 51 daily Externa Hour l Sustained Release Duloxetine Yes [id number] 60mg Take 60 mg Mary HCl 60 MG 3-15 by mouth Seybol d oral Cap DR 15:13: daily - Particles 54 Externa l Rosuvastati Yes [id number] 5mg Take 5 mg Mary n Calcium 5 3-15 3 by mouth Seyb old MG oral 15:13: daily - Tablet 54 Externa l Quetiapine Yes [id number] 50mg Take 50 mg Mary Fumarate 50 3-15 by mouth Seyb old MG oral 15:13: nightly - Tablet 54 Externa l Amitriptyli Yes [id number] 75mg Take 75 mg Mary ne HCl 75 3-15 by mouth 2 Seyb old MG oral 15:13: times - Tablet 54 daily Externa l Gabapentin Yes [id number] 300mg Take 300 Mary 300 MG oral 3-15 mg by Seybold Capsule 15:13: mouth 3 - 54 times Externa daily l Montelukast Yes [id number] 10mg Take 10 mg Mary (SINGULAIR) 3-15 by mouth Seyb old 10 MG oral 15:13: nightly - Tablet 54 Externa tablet l FLUTICASONE Yes [id number] 50ug Use 1 K elsey PROPIONATE, 3-15 spray (50 Sey bold NASAL, 50 00:00: mcg total) - MCG/ACT 00 in each Externa nasal nostril l Suspension daily INSULIN Yes [id number] 20 units K elsey ISOPHANE & 3-15 sc every Seybo ld REG MIX, 00:00: am and 10 - HUMAN, 00 unit sc Externa (NovoLIN every pm l 70/30 ReliOn) (70-30) 100 UNIT/ML subcutaneou s Suspension Losartan Yes [id number] 25mg Take 1 Eugenio sey Potassium 3-15 tablet (25 Seyb old 25 MG oral 00:00: mg total) - Tablet 00 by mouth Externa daily l FLUTICASONE Yes [id number] 50ug Use 1 K elsey PROPIONATE, 3-15 spray (50 Sey bold NASAL, 50 00:00: mcg total) - MCG/ACT 00 in each Externa nasal nostril l Suspension daily Losartan Yes [id number] 25mg Take 1 Eugenio sey Potassium 3-15 tablet (25 Seyb old 25 MG oral 00:00: mg total) - Tablet 00 by mouth Externa daily l INSULIN 2022- No [id number] 20 units Mary ISOPHANE & 3-15 03-30 sc every Seyb old REG MIX, 00:00: 00:00 am and 10 - HUMAN, 00 :00 unit sc Externa (NovoLIN every pm l 70/30 ReliOn) (70-30) 100 UNIT/ML subcutaneou s Suspension NovoLIN 2022- No [id number] INJECT 120 Mary 70/30 2-03 03-15 3 UNITS Seybold ReliOn 00:00: 00:00 UNDER THE - (70-30) 100 00 :00 SKIN EVERY Ex terna UNIT/ML MORNING l subcutaneou AND 120 s UNITS Suspension EVERY EVENING 30 MINUTES BEFORE MEALS. Immunizations Ordered Immunization Filled Immunization Date Status Commen ts Source Name Name Influenza, Seasonal, 2012-03-11 Completed Lizzy ey Seybold Injectable, 00:00:00 - External Preservative Free Influenza, Seasonal, 2012-03-11 Completed Lizzy ey Seybold Injectable, 00:00:00 - External Preservative Free Vital Signs Vital Name Observation Time Observation Value Comments Source Systolic blood 2022-07-09 18:42:00 154 mm[Hg] Mary Chapinybold - pressure External Diastolic blood 2022-07-09 18:42:00 90 mm[Hg] Jun reyes Seybold - pressure External Heart rate 2022-07-09 18:42:00 110 /min Mary bhattibold - External Body temperature 2022-07-09 18:42:00 36.28 Cora Lizzy ey Seybold - External Respiratory rate 2022-07-09 18:42:00 14 /min Lizzy ey Seybold - External Body height 2022-07-09 18:42:00 167.6 cm Mary S eybold - External Body weight 2022-07-09 18:42:00 87.091 kg Mary S eybold - External BMI 2022-07-09 18:42:00 30.99 kg/m2 Mary S eybold - External Oxygen saturation in 2022-07-09 18:42:00 99 /min Mary Seybold - Arterial blood by External Pulse oximetry Systolic blood 2022-06-24 20:06:00 154 mm[Hg] Mary Seybold - pressure External Diastolic blood 2022-06-24 20:06:00 92 mm[Hg] Jun y Seybold - pressure External Heart rate 2022-06-24 20:06:00 124 /min Mary S eybold - External Body temperature 2022-06-24 20:06:00 36.61 Cora Lizzy ey Seybold - External Respiratory rate 2022-06-24 20:06:00 14 /min Lizzy ey Seybold - External Body height 2022-06-24 20:06:00 167.6 cm Mary Marie eybold - External Body weight 2022-06-24 20:06:00 88.905 kg Mary S eybold - External BMI 2022-06-24 20:06:00 31.64 kg/m2 Mary S eybold - External Oxygen saturation in 2022-06-24 20:06:00 99 /min Mary Chapinybold - Arterial blood by External Pulse oximetry Procedures This patient has no known procedures. Encounters Start End Encounter Admission Attending Care Care Encounter Source Date/Time Date/Time Type Type Clinicians Facility Department ID 2022-12-07 2022-12-07 Outpatient MARY MACKEY [id number] Mary 14:15:00 14:15:00 NOLAN Seybol d 2022-11-16 2022-11-16 Outpatient INESSA PRICE [id number] Mary 14:30:00 14:30:00 Seybol d 2022-11-05 2022-11-05 Outpatient MARY MACKEY [id number] Mary 00:00:00 00:00:00 NOLAN Seybol d 2022-11-04 2022-11-04 Outpatient PREZAS, MARY HERNANDEZ [id number] Mary 00:00:00 00:00:00 NOLAN Seybol d 2022-11-02 2022-11-02 Outpatient PREZAS, MARY HERNANDEZ [id number] Mary 00:00:00 00:00:00 NOLAN Seybol d 2022-10-04 2022-10-04 Outpatient PREZAS, MARY HERNANDEZ [id number] Mary 00:00:00 00:00:00 NOLAN Seybol d 2022-09-30 2022-09-30 Outpatient PREZAS, MARY HERNANDEZ [id number] Mary 00:00:00 00:00:00 NOLAN Seybol d 2022-08-13 2022-08-13 Outpatient PREZAS, MARY HERNANDEZ [id number] Mary 00:00:00 00:00:00 NOLAN Seybol d 2022-08-12 2022-08-12 Outpatient MARY HERNANDEZ [id number] Mary 15:30:00 15:30:00 Seybol d 2022-08-10 2022-08-10 Outpatient PREZAS, MARY HERNANDEZ [id number] Mary 00:00:00 00:00:00 NOLAN Seybol d 2022-08-06 2022-08-06 Outpatient PREZAS, MARY HERNANDEZ [id number] Mary 15:00:00 15:00:00 NOLAN Seybol d 2022-07-31 2022-07-31 Outpatient MARY HERNANDEZ [id number] Mary 14:00:00 14:00:00 Seybol d 2022-07-21 2022-07-21 Outpatient PREZAS, MARY HERNANDEZ [id number] Mary 00:00:00 00:00:00 NOLAN Seybol d 2022-07-14 2022-07-14 Outpatient PREZAS, MARY HERNANDEZ [id number] Mary 00:00:00 00:00:00 NOLAN Seybol d 2022-07-13 2022-07-13 Outpatient MARY MACKEY [id number] Mary 00:00:00 00:00:00 NOLAN Seybol d 2022-07-09 2022-07-09 Outpatient LAB90 MARY HERNANDEZ [id number] Mary 17:00:00 17:00:00 Seybol d 2022-07-09 2022-07-09 Outpatient MARY MACKEY [id number] Mary 13:45:00 13:45:00 NOLAN Seybol d 2022-07-09 2022-07-09 Outpatient MARY MACKEY [id number] Mary 00:00:00 00:00:00 NOLAN Seybol d 2022-07-02 2022-07-02 Outpatient MARY MACKEY [id number] Mary 00:00:00 00:00:00 NOLAN Seybol d 2022-06-30 2022-06-30 Outpatient MARY MACKEY [id number] Mary 00:00:00 00:00:00 NOLAN Seybol d 2022-06-26 2022-06-26 Outpatient LAB90 MARY HERNANDEZ [id number] Mary 10:15:00 10:15:00 Seybol d 2022-06-24 2022-06-24 Outpatient LAB90 MARY HERNANDEZ [id number] Mary 15:55:00 15:55:00 Seybol d 2022-06-24 2022-06-24 Outpatient MARY MACKEY [id number] Mary 15:00:00 15:00:00 NOLAN Seybol d Results This patient has no known results.
[2022-11-09] MEDS ORDERED: ONDANSETRON 4 MG/2 ML VIAL ONE (00:25)
[2022-11-09] MEDS ORDERED: INSULIN -REGULAR HUMAN 50 UNIT/0.5 ML ML ONE ×2 (00:25→02:08)
[2022-11-09] MEDS ORDERED: NA CHLORIDE 0.9% 2,000 ML ONE (00:26)
[2022-11-09 00:46] LABS: Absolute Lymphocytes (CBC) 2.2 K/uL (0.7-4.9); Lymphocytes % 26.6 % (15.3-44.8); MCV 94.2 fL (80-100); MPV 8.9 fL (7.6-11.3); Protime INR 1.02; RBC Red Blood Cell Count 3.82 M/uL (3.86-4.86)
[2022-11-09 00:57] LABS: ALT/SGPT 79 U/L (13-56); AST/SGOT 31 U/L (15-37); Albumin 3.4 g/dL (3.4-5.0); Alkaline Phosphatase 193 U/L (45-117); BUN Blood Urea Nitrogen 46 mg/dL (7-18); Bicarbonate 17 mEq/L (21-32); Bilirubin Total 0.3 mg/dL (0.2-1.0); Creatine Phosphokinase 115 U/L (26-192); Glomerular Filtration Rate 34 ml/min (=/>90); NT PRO-BNP 284 pg/mL (<125); Potassium 4.1 mEq/L (3.5-5.1); Protein, Total 7.5 g/dL (6.4-8.2); Sodium Level 128 mEq/L (136-145)
[2022-11-09 00:58] LABS: Bilirubin Direct < 0.1 mg/dL (0-0.2); Bilirubin Indirect, Calculated ND mg/dL (0.2-0.8); Glucose Level 416 mg/dL (74-106); Troponin High Sensitivity 262.5 pg/mL (<58.9)
[2022-11-09] MEDS ORDERED: ZIPRASIDONE MESYLA 20 MG/VIAL IM ONE (01:50)
[2022-11-09] MEDS ORDERED: SODIUM BICARB 50 MEQ/50ML VIAL ONE (02:08)
[2022-11-09 02:24] LABS: Potassium 4.1 mEq/L (3.5-5.1)
[2022-11-09] MEDS ORDERED: LORazepam 2 MG/ML VIAL IV PRN (03:03)
[2022-11-09] MEDS: NA CHLORIDE 0.9% 1,000 ML IV SCH ×3 (03:03→23:09)
[2022-11-09] MEDS ORDERED: FLUMAZENIL 0.1 MG/ML (5 mL VIAL) IV PRN (03:05)
--- NOTE | 2022-11-09 03:09 | P.HP ---
Certification for Inpatient Patient admitted to: Inpatient With expected LOS: <2 Midnights Patient will require the following post-hospital care: None Practitioner: I am a practitioner with admitting privileges, knowledge of patient current condition, hospital course, and medical plan of care. Services: Services provided to patient in accordance with Admission requirements found in Title 42 Section 412.3 of the Code of Federal Regulations Patient History Date of Service: 11/09/22 Reason for admission: ETOH intoxication History of Present Illness: 66 year old female with past medical history of HTN, DM, HLD, Anxiety, Gastric Banding presents to the ER after being brought in by police for alcohol intoxication being found sitting in her car in the middle of [place] road. Patient refused to get her out of her car, she then tried to run over police was tased by police, patient was noted to have altered mental status, with brought to ER for evaluation. She noted to be hyperglycemic BG 456, in ER Patient appears heavily intoxicated, noncooperative. Patient is not able to state her name or her location. She was was given Geodon after pulling out lines, IV. She is currently sedated, resting with eyes closed, VS stable. Plan to admit for ETOH intoxication, Hyperglycemia, elevated troponin. Laboratory evaluation hyponatremia 130, acute kidney injury BUN 45 creatinine 1.60, blood glucose 416 recheck 321, transaminitis ALT 79, ALK 193, troponin 262.5, BNP 284, CBC unremarkable, urine toxicology positive for benzodiazepine, plasma alcohol 352, chest x-ray, CT of the head ordered pending results Allergies No Known Allergies Allergy (Verified 04/30/15 21:58) Home medications list reviewed: No Home Medications: Acetylcyst [Mucomyst 20%*] 23 ml PO Q4H #4 vial 08/07/17 Gabapentin [Neurontin*] 08/07/17 Nebivolol HCl [Bystolic] 08/07/17 - Past Medical/Surgical History Diabetic: Yes -: HTN -: DM -: High Lipids -: Anxiety -: Hysterectomy -: Cholesectomy -: Back surgery -: Tummy tuck -: Gastric Banding - Family History Father -: Heart disease, Diabetes Notes: emphysema Mother -: Hypertension, Cancer Notes: pancreatic cancer - Social History Smoking Status: Smoker current status UNK Alcohol use: Yes CD- Drugs: Yes Caffeine use: Yes Review of Systems is unable to be obtained Physical Examination - Physical Exam General: Other (Sedated, eyes open to verbal, ) HEENT: Atraumatic, Normocephalic, Mucous membr. moist/pink Neck: Supple, 2+ carotid pulse no bruit, JVD not distended Respiratory: Clear to auscultation bilaterally, Normal air movement Cardiovascular: Normal pulses, Regular rate/rhythm, Normal S1 S2 Capillary refill: <2 Seconds Gastrointestinal: Normal bowel sounds, Soft and benign (Obese abdomen) Musculoskeletal: No clubbing, No swelling Integumentary: No rashes, No breakdown Neurological: Other (sedated ) - Studies Laboratory Data (last 24 hrs) 11/09/22 11/09/22 11/09/22 01:54 00:13 00:13 WBC 8.20 Hgb 12.0 Hct 36.0 Plt Count 202 PT 11.2 INR 1.02 Sodium 130 L Potassium 4.1 BUN 45 H Creatinine 1.60 H Glucose 321 H Magnesium Total Bilirubin AST ALT Alkaline Phosphatase 11/09/22 00:13 WBC Hgb Hct Plt Count PT INR Sodium 128 L Potassium 4.1 BUN 46 H Creatinine 1.67 H Glucose 416 H* Magnesium 2.0 Total Bilirubin 0.3 AST 31 ALT 79 H Alkaline Phosphatase 193 H Assessment and Plan - Plan Assessment Plan Alcohol intoxication NSTEMI-Elevated troponin hyponatrema Acute kidney injury transaminitis Diabetes mellitus insulin-dependent with DKA and hyperglycemia ETOH use HTN HLD DVT proplx Assessment Plan Alcohol intoxication Ciwa protocol, PRN Ativan, fall precautions plasma alcohol 352, chest x-ray, CT of the head ordered pending results CBC unremarkable, urine toxicology positive for benzodiazepine, NSTEMI-Elevated troponin cardiology consult, trend troponin troponin 262.5, BNP 284 Lovenox 1mg/mg EKG ST rate 106, no stemi hyponatrema trend electrolytes, replace PRN hyponatremia 130, Acute kidney injury IVF, kristin BMP in am acute kidney injury BUN 45 creatinine 1.60, transaminitis ALT 79, ALK 193, DM type 2 with Hyperglycemia Treated with IV insulin, IVF in ER ACHS BG, SSI blood glucose 416 recheck 321 HTN Prn antihypertensive HLD resume home meds when more alert DVT proplx Lovenox Diet NPO Full Code Discharge Plan: Home Plan to discharge in: 48 Hours - Advance Directives Does patient have a Living Will: No Does patient have a Durable POA for Healthcare: No - Code Status/Comfort Care Code Status: Full Code Physician Review: Patient Assessed, Agree with Above Assessment and Plan Critical Care: No Time Spent Managing Pts Care (In Minutes): 50
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
[2022-11-09] MEDS ORDERED: ENOXAPARIN 80 MG/0.8 ML SQ ONE (04:12)
[2022-11-09] MEDS ORDERED: ASPIRIN 81 MG CHEWABLE TABLET ONE ×2 (04:12→21:04)
[2022-11-09 04:18] LABS: Albumin 2.8 g/dL (3.4-5.0); Bilirubin Total 0.2 mg/dL (0.2-1.0); Potassium 4.2 mEq/L (3.5-5.1); Protein, Total 6.1 g/dL (6.4-8.2)
[2022-11-09] MEDS ORDERED: ONDANSETRON 4 MG/2 ML VIAL IV PRN (04:30)
[2022-11-09 04:42] LABS: Troponin High Sensitivity 307.9 pg/mL (<58.9)
[2022-11-09 06:39] VITALS: BMI 29.0
[2022-11-09 06:50] LABS: Barbiturates NEGATIVE (NEGATIVE); Benzodiazepines NEGATIVE (NEGATIVE); Cocaine NEGATIVE (NEGATIVE); METHAMPHETAM NEGATIVE (NEGATIVE); Methadone NEGATIVE (NEGATIVE); Opiates NEGATIVE (NEGATIVE); Phencyclidine NEGATIVE (NEGATIVE); THC Cannibis NEGATIVE (NEGATIVE)
[2022-11-09] MEDS: INSULIN -REGULAR HUMAN 50 UNIT/0.5 ML ML SQ SCH ×4 (07:30→23:08)
--- NOTE | 2022-11-09 10:28 | RAD REPORT ---
EXAM DESCRIPTION: RAD - Chest Single View - 11/09/2022 1:01 am CLINICAL HISTORY: The patient is 66 years old and is Female; CHEST PAIN TECHNIQUE: Frontal view of the chest. COMPARISON: No relevant prior studies available. FINDINGS: Lungs: Low lung volumes. No consolidation. Pleural space: Unremarkable. No pneumothorax. Heart: Unremarkable. Mediastinum: Unremarkable. Bones/joints: Unremarkable. IMPRESSION: No acute findings in the chest. Electronically signed by: Dany Manrique MD 11/09/2022 1:18 AM CDT Due to temporary technical issues with the PACS/Fluency reporting system, reports are being signed by the in house radiologist without review as a courtesy to ensure prompt reporting. The interpreting r adiologist is fully responsible for the content of the report.
--- NOTE | 2022-11-09 10:51 | RAD REPORT ---
EXAM DESCRIPTION: CT - Head Brain Wo Cont - 11/09/2022 6:32 am CLINICAL HISTORY: The patient is 66 years old and is Female; altered mental status TECHNIQUE: Axial computed tomography images of the head/brain without intravenous contrast. Sagitt al and coronal reformatted images were created and reviewed. This CT exam was performed using one o r more of the following dose reduction techniques: automated exposure control, adjustment of the mA and/or kV according to patient size, and/or use of iterative reconstruction technique. COMPARISON: No relevant prior studies available. FINDINGS: Brain: Unremarkable. No hemorrhage. No significant white matter disease. No edema. Ventricles: Unremarkable. No ventriculomegaly. Bones/joints: Unremarkable. No acute fracture. Soft tissues: Unremarkable. Sinuses: Unremarkable as visualized. Mastoid air cells: Unremarkable as visualized. No mastoid effusion. IMPRESSION: No acute intracranial abnormality. Electronically signed by: Dany Manrique MD 11/09/2022 1:20 AM CDT Due to temporary technical issues with the PACS/Fluency reporting system, reports are being signed by the in house radiologist without review as a courtesy to ensure prompt reporting. The interpreting r adiologist is fully responsible for the content of the report.
--- NOTE | 2022-11-09 16:54 | P.PN ---
Date of Service: 11/09/22 Patient is seen and examined. She is awake and alert. Oriented x3. She denies any chest pain or palpitation or shortness of breath. She states she feels at baseline. Troponin trended up to 800. Noted patient was tased during interaction with the police. Cardiology consulted given elevated troponin. Patient with hypertension and diabetes as risk factors for CAD. No known personal history. Echocardiogram is pending.
--- NOTE | 2022-11-09 18:50 | EKG ---
Test Date: 2022-11-09 Test Time: 03:47:12 Cassandra Consultant: MORA MEASUREMENT RESULTS: Intervals: Rate: 106 HI: 178 QRSD: 76 QT: 356 QTc: 472 [place]: P: 67 HI: 178 QRS: 31 T: 52 INTERPRETIVE STATEMENTS: Sinus tachycardia Low voltage QRS Borderline ECG Compared to ECG 02/19/2020 16:18:03 Low QRS voltage now present Sinus rhythm no longer present Electronically Signed On 11-09-22 18:48:07 CDT by Leo Douglas
[2022-11-09] MEDS ORDERED: ASPIRIN 81 MG CHEWABLE TABLET PO ONE (19:02)
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
[2022-11-09] MEDS ORDERED: HYDRALAZINE HCL 20 MG/ML VIAL ONE (20:29)
[2022-11-09] MEDS: HYDRALAZINE HCL 20 MG/ML VIAL IV PRN (20:37)
[2022-11-09] MEDS ORDERED: LABETALOL 20 MG/4ML SYRINGE IV ONE (22:29)
[2022-11-09] MEDS ORDERED: MORPHINE 2 MG/ML SYR IV ONE (22:29)
[2022-11-10 01:23] LABS: Specific Gravity 1.009 (1.005-1.030); Urine Bacteria None Seen /HPF (<20); Urine Bilirubin NEGATIVE (Negative); Urine Blood Trace (Negative); Urine Clarity Clear (Clear); Urine Color Colorless (Yellow); Urine Glucose 1+ (Negative); Urine Protein 2+ (Negative); Urine RBC <5 /HPF (None Seen); Urine Urobilinogen Normal (Normal); Urine pH 6.5 (5.0-7.0)
[2022-11-10] MEDS: MELATONIN 5 MG TABLET PO PRN (01:30)
[2022-11-10 03:45] LABS: Absolute Lymphocytes (CBC) 1.5 K/uL (0.7-4.9); Hematocrit 31.5 % (36.0-45.0); Lymphocytes % 26.4 % (15.3-44.8); MCV 93.4 fL (80-100); MPV 8.4 fL (7.6-11.3); RBC Red Blood Cell Count 3.38 M/uL (3.86-4.86)
[2022-11-10 04:07] LABS: Albumin 2.8 g/dL (3.4-5.0); Bilirubin Total 0.3 mg/dL (0.2-1.0); Magnesium 1.6 mg/dL (1.6-2.4); Potassium 3.7 mEq/L (3.5-5.1); Protein, Total 6.2 g/dL (6.4-8.2)
[2022-11-10] MEDS: HYDRALAZINE HCL 20 MG/ML VIAL IV PRN (05:23)
--- NOTE | 2022-11-10 07:14 | P.PN ---
Date of Service: 11/10/22 Subjective: not feeling well today, +anxious/stressed about situation, tearful at times dull chest pain continues ~unchanged constant cramping pains, +pain when urinating no acute events overnight denies daily alcohol use, denies h/o withdrawal ROS: 10 point ROS as noted above, otherwise negative Physical Exam: GEN: Alert, oriented, anxious / tearful HEENT: Normal conjunctiva, sclera anicteric CV: Regular rate and rhythm, no edema Pulm: Nonlabored respirations on room air, clear bilaterally ABD: Soft, nondistended, mild suprapubic discomfort/tenderness Integumentary: No rashes Neuro: Normal speech, mild-mod resting tremors in upper extremities, +Anxious vitals reviewed Problem List: NSTEMI UTI suspected Alcohol intoxication Hyponatrema CHARU transaminitis IDDM2 with DKA and hyperglycemia chronic tremor Hypertension Hyperlipidemia Depression NSTEMI chest pain CXR (11/09): no acute findings troponins elevated and trending up 1405.4; repeat pending today BNP 284 cardiology consulted Stress test (11/10): Moderate sized area of mild stress-induced ischemia involving the left ventricular anterior wall near the apex. Tentative plan for heart cath tomorrow Continue aspirin 81 mg start lovenox PRN pain medication UTI suspected reports constant lower abdominal cramping pains, +pain when urinating recently UA: LE 75, no bacteria, no RBC, no WBC, 2+ proteins Started empiric Rocephin (11/10-) afebrile without leukoyctosis currently Alcohol intoxication CT head (11/09): No acute intracranial abnormality. denies ETOH withdrawal in past, denies daily drinking. reported 1-2/week, drinking 12pack CIWA protocol, fall precautions PRN ativan CHARU Monitor renal function improving with IVF hyponatrema trend electrolytes, replace PRN normal once corrected for glc Transaminitis ALT 57, ALK 132 IDDM2 with DKA and hyperglycemia Treated with IV insulin, IVF in ER Accu-Cheks ACHS, SSI start long acting Hypertension dc IVF, add norvasc, continue beta maritza IV PRN adjust further Hyperlipidemia Depression Confirm home medications, restart as appropriate VTE: Lovenox Code: Full Dispo: Home Pending cardiac cath
[2022-11-10] MEDS ORDERED: REGADENOSON 0.4 MG/5 ML SYR IV ONE (07:40)
[2022-11-10] MEDS ORDERED: LORazepam 2 MG/ML VIAL IV ONE (08:06)
[2022-11-10] MEDS: ASPIRIN 81 MG CHEWABLE TABLET PO SCH (08:39)
[2022-11-10] MEDS: INSULIN -REGULAR HUMAN 50 UNIT/0.5 ML ML SQ SCH ×4 (08:39→22:48)
[2022-11-10] MEDS ORDERED: POTASSIUM CL SA 10 MEQ TAB PO ONE (09:00)
[2022-11-10] MEDS ORDERED: MAGNESIUM SULFATE 1 gm IVPB 1 GM/100 ML BAG IV ONE (09:00)
[2022-11-10] MEDS ORDERED: HYDRALAZINE HCL 20 MG/ML VIAL IV ONE (09:25)
--- NOTE | 2022-11-10 10:29 | RAD REPORT ---
EXAM DESCRIPTION: NM - Rest Stress Cardiac Imaging - 11/10/2022 10:18 am CLINICAL HISTORY: Elevated troponin Chest pain. COMPARISON: No comparisons TECHNIQUE: The patient was administered approximately 10mCi of Tc 99m Sestamibi prior to resting SPE CT imaging of the heart. The patient was then administered approximately 30 mCi of Tc 99m Sestamibi f ollowing exercise or pharmacologic stress. Multiplanar SPECT images were reviewed. FINDINGS: There is a moderate sized area of mild stress-induced ischemia involving the anterior wall near the apex. No fixed defect is seen to suggest hibernating myocardium or scarred myocardium. The end diastolic volume is 74 ml, the end systolic volume is 29 ml, and the ejection fraction is 61 %. IMPRESSION: Moderate sized area of mild stress-induced ischemia involving the left ventricular anter ior wall near the apex.
[2022-11-10] MEDS ORDERED: AMLODIPINE 5 MG TAB PO ONE (10:56)
[2022-11-10] MEDS ORDERED: METOPROLOL TAR 25 MG TAB PO ONE (10:56)
[2022-11-10] MEDS ORDERED: LORazepam 2 MG/ML VIAL IV SCH (12:00)
[2022-11-10] MEDS: CEFTRIAXONE 1,000 MG in NA CHLORIDE 0.9% 50 ML IVPB SCH (12:05)
[2022-11-10] MEDS: LORazepam 2 MG/ML VIAL IV PRN ×2 (12:24→18:19)
[2022-11-10] MEDS: NA CHLORIDE 0.9% 1,000 ML IV SCH (14:33)
[2022-11-10] MEDS ORDERED: INSULIN GLARGINE 100 UNIT/ML SQ ONE (16:00)
[2022-11-10] MEDS: ENOXAPARIN 80 MG/0.8 ML SQ SCH (16:21)
[2022-11-10] MEDS: METOPROLOL TAR 25 MG TAB PO SCH (18:00)
[2022-11-11] MEDS: ENOXAPARIN 80 MG/0.8 ML SQ SCH (04:41)
[2022-11-11] MEDS: METOPROLOL TAR 25 MG TAB PO SCH ×2 (05:55→17:44)
[2022-11-11] MEDS: HYDRALAZINE HCL 20 MG/ML VIAL IV PRN (06:46)
[2022-11-11 07:02] LABS: Absolute Lymphocytes (CBC) 1.2 K/uL (0.7-4.9); Hematocrit 34.1 % (36.0-45.0); Lymphocytes % 31.3 % (15.3-44.8); MCV 93.6 fL (80-100); MPV 8.3 fL (7.6-11.3); RBC Red Blood Cell Count 3.64 M/uL (3.86-4.86)
[2022-11-11 07:17] LABS: Albumin 2.9 g/dL (3.4-5.0); Bilirubin Total 0.3 mg/dL (0.2-1.0); Magnesium 1.7 mg/dL (1.6-2.4); Protein, Total 6.6 g/dL (6.4-8.2)
--- NOTE | 2022-11-11 07:18 | P.PN ---
Date of Service: 11/11/22 Subjective: Chest pain ~unchanged lower abdominal cramping pains continue; no longer burning sensation when u rinating otherwise no new / worsening problems ROS: 10 point ROS as noted above, otherwise negative Physical Exam: GEN: Alert, oriented, anxious HEENT: Normal conjunctiva, sclera anicteric CV: Regular rate and rhythm, no edema Pulm: Non-labored respirations on room air, clear bilaterally ABD: Soft, nondistended, mild suprapubic discomfort/tenderness Integumentary: No rashes Neuro: Normal speech, mild resting tremors in upper extremities, +Anxious vitals reviewed Problem List: NSTEMI UTI suspected Alcohol intoxication Hyponatrema CHARU transaminitis IDDM2 with DKA and hyperglycemia chronic tremor Hypertension Hyperlipidemia Depression NSTEMI chest pain CXR (11/09): no acute findings troponins elevated x5 - peak: 1405.4 BNP 284 Echo (11/10): EF of 61% with normal wall motion, mild TR, poor windows cardiology consulted Stress test (11/10): Moderate sized area of mild stress-induced ischemia involving the left ventricular anterior wall near the apex. NPO for tentative heart cath today Continue aspirin 81 mg PRN pain medication UTI suspected reports constant lower abdominal cramping pains, +pain when urinating recently UA: LE 75, no bacteria, no RBC, no WBC, 2+ proteins Started empiric Rocephin (11/10-) afebrile without leukoyctosis currently Alcohol intoxication CT head (11/09): No acute intracranial abnormality. denies ETOH withdrawal in past, denies daily drinking. reported 1-2/week, drinking 12pack CIWA protocol, fall precautions PRN ativan CHARU Monitor renal function improving with IVF hyponatrema trend electrolytes, replace PRN normal once corrected for glc Transaminitis ALT 57, ALK 132 IDDM2 with DKA and hyperglycemia Treated with IV insulin, IVF in ER Accu-Cheks ACHS, SSI start long acting Hypertension dc IVF, add norvasc, continue beta maritza IV PRN adjust further Hyperlipidemia Depression Confirm home medications, restart as appropriate VTE: Lovenox Code: Full Dispo: Home, 1-2 days Pending cardiac cath
[2022-11-11] MEDS: ASPIRIN 81 MG CHEWABLE TABLET PO SCH (07:24)
[2022-11-11] MEDS: MORPHINE 2 MG/ML SYR IV PRN ×3 (07:24→19:55)
[2022-11-11] MEDS: CEFTRIAXONE 1,000 MG in NA CHLORIDE 0.9% 50 ML IVPB SCH (08:32)
[2022-11-11] MEDS: AMLODIPINE 5 MG TAB PO SCH (08:33)
[2022-11-11] MEDS: INSULIN -REGULAR HUMAN 50 UNIT/0.5 ML ML SQ SCH ×4 (08:33→21:00)
--- NOTE | 2022-11-11 14:32 | ECHO ---
HEIGHT: 5 ft 6 in WEIGHT: 180 lb 0 oz DATE OF STUDY: 11/10/[address]: Terence Osborne MD 2-DIMENSIONAL: YES M.MODE: YES DOPPLER: YES COLOR FLOW: YES TDS: PORTABLE: YES DEFINITY: BUBBLE STUDY: DIAGNOSIS: ELEVATED TROPONIN CARDIAC HISTORY: CATHERIZATION: NO SURGERY: NO PROSTHETIC VALVE: NO PACEMAKER: NO MEASUREMENTS (cm) DIASTOLIC (NORMALS) SYSTOLIC (NORMALS) IVSd 1.1 (0.6-1.2) LA Diam 3.5 (1.9-4.0) LVEF 61% LVIDd 4.0 (3.5-5.7) LVIDs 2.7 (2.0-3.5) %FS 32% LVPWd 1.1 (0.6-1.2) Ao Diam 1.9 (2.0-3.7) 2 DIMENSIONAL ASSESSMENT: RIGHT ATRIUM: NORMAL LEFT ATRIUM: NORMAL RIGHT VENTRICLE: NORMAL LEFT VENTRICLE: NORMAL TRICUSPID VALVE: MILD TRICUSPID REGURGITATION MITRAL VALVE: NORMAL PULMONIC VALVE: NORMAL AORTIC VALVE: NORMAL PERICARDIAL EFFUSION: NONE AORTIC ROOT: NORMAL LEFT VENTRICULAR WALL MOTION: NORMAL (HYPEDYNAMIC) DOPPLER/COLOR FLOW: MILD TRICUSPID REGURGITATION COMMENTS: 1. NORMAL LEFT VENTRICULAR EJECTION FRACTION GREATER THAN 60% 2. NORMAL WALL MOTION 3. MILD TRICUSPID REGURGITATION 4. POOR WINDOWS TECHNOLOGIST: WILLY PAN
--- NOTE | 2022-11-11 14:39 | TREADPHA ---
DX: ELEVATED TROPONIN Date of Study: 11/10/2022 Ht: 5' 6 " Wt: 180 lb 0 oz Consulting Physician: HALIMA MEDICATIONS: ASPIRIN, ROMAZION, APRESOLINE, NOVOLIN-R, ATIVAN, MAGNESIUM SULFATE/ DEXTROSE, MELATONIN, ZOFRAN, KLOR-CON HISTORY: 66 YEAR OLD FEMALE WITH COMPLAINTS OF CHEST PAIN. HISTORY OF ALCOHOL USE, HYPERTENSION, DYSLIPIDEMIA. PATIENT STATES NO KNOWN DRUG ALLERGY PHYSICIAL EXAMINATION: RESTING B.P.: 186/79 RESTING H.R.: 99 RESTING EKG: SINUS RHYTHM, WITHIN NORMAL LIMITS PROTOCOL: PHARMACOLOGIC EXERCISE TIME: 3:30 B.P. AT [facility] STRESS: 159/73 IMPRESSION: PATIENT BLOOD PRESSURE 196/87. DR. TALAVERA CALLED AND NOTIFIED. ORDERES RECEIVED TO ADMINISTER HYDRALAZINE 10 mg INTRAVENOUS. LEXISCAN INJECTED. CARDIOLITE INJECTED - SEE NUCLEAR MEDICINE REPORT. PATIENT COMPLAINTS OF CHEST PRESSURE, HEADACHE AND ABDOMINAL PAIN. NO SUPRAVENTRICULAR TACHYCARDIA, VENTRICULAR TACHYCARDIA, PREMATURE VENTRICULAR COMPLEXES, PREMATURE ATRIAL COMPLEXES NOTED. NO ELECTROCARDIOGRAM CHANGES OF ISCHEMIA WITH LEXISCAN.
--- NOTE | 2022-11-11 17:38 | EKG ---
Test Date: 2022-11-10 Test Time: 08:17:44 Production Quality Analyst: BELINDA MEASUREMENT RESULTS: Intervals: Rate: 99 MN: 160 QRSD: 78 QT: 370 QTc: 474 Varina: P: 67 MN: 160 QRS: 64 T: 53 INTERPRETIVE STATEMENTS: Normal sinus rhythm Normal ECG Compared to ECG 11/09/2022 21:04:20 Sinus tachycardia no longer present Electronically Signed On 11-11-22 17:34:35 CDT by Leo Douglas
[2022-11-11] MEDS ORDERED: ENOXAPARIN 80 MG/0.8 ML SQ ONE (22:44)
[2022-11-11] MEDS: INSULIN GLARGINE 100 UNIT/ML SQ SCH (23:14)
[2022-11-11] MEDS ORDERED: MELATONIN 5 MG TABLET PO PRN (23:49)
[2022-11-12] MEDS: LORazepam 2 MG/ML VIAL IV PRN ×2 (00:03→07:52)
[2022-11-12] MEDS: MELATONIN 5 MG TABLET PO PRN (00:05)
[2022-11-12 06:04] LABS: Hematocrit 35.2 % (36.0-45.0); MCV 94.1 fL (80-100); RBC Red Blood Cell Count 3.74 M/uL (3.86-4.86)
[2022-11-12 06:05] LABS: Absolute Lymphocytes (CBC) 1.4 K/uL (0.7-4.9); Lymphocytes % 32.4 % (15.3-44.8); MPV 8.4 fL (7.6-11.3)
[2022-11-12] MEDS: ASPIRIN 81 MG CHEWABLE TABLET PO SCH (06:11)
[2022-11-12] MEDS: METOPROLOL TAR 25 MG TAB PO SCH ×2 (06:11→18:03)
[2022-11-12 06:23] LABS: Albumin 2.9 g/dL (3.4-5.0); Bilirubin Total 0.4 mg/dL (0.2-1.0); Magnesium 1.7 mg/dL (1.6-2.4); Potassium 3.6 mEq/L (3.5-5.1); Protein, Total 6.7 g/dL (6.4-8.2)
[2022-11-12] MEDS: INSULIN -REGULAR HUMAN 50 UNIT/0.5 ML ML SQ SCH ×3 (07:30→18:01)
[2022-11-12] MEDS: CEFTRIAXONE 1,000 MG in NA CHLORIDE 0.9% 50 ML IVPB SCH (07:44)
[2022-11-12] MEDS: AMLODIPINE 5 MG TAB PO SCH (07:44)
[2022-11-12] MEDS: INSULIN GLARGINE 100 UNIT/ML SQ SCH (07:46)
--- NOTE | 2022-11-12 12:29 | P.PN ---
Date of Service: 11/12/22 Subjective: feeling better today; Chest pain improving abdominal cramping pain resolved; +afebrile no new / worsening problems BP remains elevated intermittently afebrile ROS: 10 point ROS as noted above, otherwise negative Physical Exam: GEN: Alert, oriented, NAD HEENT: Normal conjunctiva, sclera anicteric CV: Regular rate and rhythm, no edema Pulm: Non-labored respirations on room air, clear bilaterally ABD: Soft, nondistended, minimal suprapubic discomfort/tenderness Neuro: Normal speech, mild resting tremors in upper extremities vitals reviewed Problem List: NSTEMI UTI suspected Alcohol intoxication Hyponatrema CHARU transaminitis IDDM2 with DKA and hyperglycemia chronic tremor Hypertension Hyperlipidemia Depression NSTEMI Chest pain CXR (11/09): no acute findings troponins elevated x5 - peak: 1405.4 BNP 284 Echo (11/10): EF of 61% with normal wall motion, mild TR, poor windows cardiology consulted Stress test (11/10): Moderate sized area of mild stress-induced ischemia involving the left ventricular anterior wall near the apex. NPO for tentative heart cath today PRN pain medication UTI suspected Started empiric Rocephin (11/10-) reports constant lower abdominal cramping pains, +pain when urinating recently symptoms resolved 11/12 UA: LE 75, no bacteria, no RBC, no WBC, 2+ proteins afebrile without leukoyctosis currently Alcohol intoxication CT head (11/09): No acute intracranial abnormality. denies ETOH withdrawal in past, denies daily drinking. reported 1-2/week, drinking 12pack CIWA protocol, fall precautions PRN ativan CHARU Monitor renal function improved with IVF hyponatrema trend electrolytes, replace PRN normal once corrected for glc Transaminitis ALT 57, ALK 132 IDDM2 with DKA and hyperglycemia Treated with IV insulin, IVF in ER Accu-Cheks ACHS, SSI cont long acting Hypertension cont norvasc, continue beta maritza IV PRN adjust further Hyperlipidemia Depression Confirm home medications, restart as appropriate VTE: Lovenox, therapeutic Code: Full Dispo: pending heart cath, BP stabilizes
[2022-11-12] MEDS ORDERED: NA CHLORIDE 0.9% 500 ML ONE (13:04)
[2022-11-12] MEDS ORDERED: HEPARIN 5000 UNIT/ML 1 ML VIAL ONE (13:38)
[2022-11-12] MEDS ORDERED: FENTANYL CITR 100 MCG/2 ML ONE (13:38)
[2022-11-12] MEDS ORDERED: VERAPAMIL HCL 10 MG/4 ML VIAL IV ONE (13:38)
[2022-11-12] MEDS ORDERED: MIDAZOLAM HCL 2 MG/2 ML INJ ONE (13:38)
[2022-11-12] MEDS ORDERED: LIDOCAINE 1% 20 ML MDV ONE (13:38)
[2022-11-12] MEDS ORDERED: HEPA 1000U/500MLS 2,000 UNIT/1,000 ML BAG IV ONE (13:38)
[2022-11-12] MEDS ORDERED: CLOPIDOGREL 75 MG TABLET ONE (13:39)
[2022-11-12] MEDS ORDERED: ASPIRIN 325 MG TAB ONE (13:39)
[2022-11-12] MEDS ORDERED: TICAGRELOR 90 MG TABLET PO ONE (13:40)
[2022-11-12] MEDS ORDERED: HEPARIN 10,000 UNIT/10 ML VIAL IV ONE (13:40)
[2022-11-12] MEDS ORDERED: ATROPINE SULF 1 MG/10 ML SYR IV ONE (13:40)
[2022-11-12] MEDS ORDERED: HYDRALAZINE HCL 20 MG/ML VIAL ONE ×2 (14:45→16:52)
--- NOTE | 2022-11-12 15:26 | OP ---
Date of Procedure: 11/12/2022 Surgeon: COLLIN VARGHESE Procedures Performed: 1.Selective coronary angiogram. 2.Left heart catheterization. Indication: A non-ST elevation myocardial infarction. Access: Right radial artery 6-Icelandic closed with TR band. Complications: None. Bleeding: Less than 20 mL. Total Sedation Time: 50 minute. Description Of Procedure: After risks, benefits, and alternatives were explained, patient agreed to proceed and signed informed consent. Patient was brought to the cardiac catheterization laboratory, prepped and draped in usual sterile fashion. Then, I accessed radial artery using pediatric micropun cture kit, placed a 6-Icelandic Slender sheath and took 5-Icelandic [place] 4.0 catheter, engaged the left ma in and took standard views and then the right coronary artery, took standard views and then catheter was pushed over the wire into the LV, measured LVEDP. Pullback did not record any gradient. I remov ed the catheter and sheath, placed TR band with good hemostasis. Findings: 1.Left main: Large and normal. 2.LAD: Proximal 80%, mid 90% heavily calcified and then diagonal 2 branch is small vessel with osti al 80% stenosis. The rest of the LAD appears to be a good target for bypass. No significant disease . 3.Left circumflex: Large and codominant. OM1 branch is very large vessel with mid 2 tandem lesions , one 60%, one 70%. 4.RCA is codominant circulation with mid to distal long segment heavily calcified 90% stenosis. 5.LVEDP normal at 10 mmHg. Conclusion: 1.Severe multivessel coronary artery disease, heavily calcified vessel. 2.Normal LVEDP. Recommendation: Transfer for CABG. SR/MODL Voice ID: [id number] Report ID: [id number]
[2022-11-12] MEDS: ENOXAPARIN 80 MG/0.8 ML SQ SCH (17:00)
[2022-11-12 17:09] VITALS: O2SAT 96
[2022-11-12 20:47] VITALS: BP 149/68; TEMP 97.3
--- NOTE | 2022-11-13 14:29 | P.DS ---
Admission Date: 11/09/22 Discharge Date: 11/12/22 Disposition: [facility]ER TO [facility] Discharge Condition: GOOD Reason for Admission: ETOH intoxication Consultations: Cardiology - Dr. Douglas Brief History of Present Illness: 66yo F, PMH: HTN, DM, HLD, Anxiety, Gastric Banding Patient presents to the ER after being brought in by police for alcohol intoxication being found sitting in her car in the middle of [place]. Patient refused to get her out of her car, she then tried to run over police was tased by police, patient was noted to have altered mental status, with brought to ER for evaluation. She noted to be hyperglycemic BG 456, in ER Patient appears heavily intoxicated, noncooperative. Patient is not able to state her name or her location. She was was given Geodon after pulling out lines, IV. She is currently sedated, resting with eyes closed, VS stable. Plan to admit for ETOH intoxication, Hyperglycemia, elevated troponin. Laboratory evaluation h yponatremia 130, acute kidney injury BUN 45 creatinine 1.60, blood glucose 416 recheck 321, transaminitis ALT 79, ALK 193, troponin 262.5, BNP 284, CBC unremarkable, urine toxicology positive for benzodiazepine, plasma alcohol 352, chest x-ray, CT of the head ordered pending results Hospital Course: Problem List: NSTEMI UTI suspected Alcohol intoxication Hyponatrema CHARU transaminitis IDDM2 with DKA and hyperglycemia chronic tremor Hypertension Hyperlipidemia Depression Patient presented with alcohol intoxication, reportedly after being tazed / found in middle of road in her car intoxicated and then attempted to evade police. Troponins were elevated x5 with peak of 1405. BNP 284. Cardiology was consulted. Stress test showed Moderate sized area of mild stress- induced ischemia involving the left ventricular anterior wall near the apex. Cardiac catheterization noted severe multivessel disease. Dr. Douglas transferred patient for CABG. Patient was noted to have elevated troponin levels and started on therapeutic lovenox. Cardiology consulted. Stress test positive. Cardiac catheterization noted severe multivessel disease. Dr. Douglas transferred patient for CABG. During her hospitalization, patient was noted to have lower abdominal cramps and burning pain when urinating. Patient was started on Empiric Rocephin to cover for suspected UTI. Symptoms resolved after 2 days of antibiotics. Patient remained afebrile throughout hospitalization without leukocytosis. Physical Exam: GEN: Alert, oriented, NAD HEENT: Normal conjunctiva, sclera anicteric CV: Regular rate and rhythm, no edema Pulm: Non-labored respirations on room air, clear bilaterally ABD: Soft, nondistended, minimal suprapubic discomfort/tenderness MSK: No joint tenderness Integumentary: No rashes Neuro: Normal speech, mild resting tremors in upper extremities Vital Signs/Physical Exam: Temp Pulse Resp BP Pulse Ox 97.3 F 95 H 18 149/68 H 96 11/12/22 20:00 11/12/22 20:00 11/12/22 20:00 11/12/22 20:00 11/12/22 20:00 Laboratory Data at Discharge: WBC 4.40 thou/uL (4.3-10.9) 11/12/22 05:32 Hgb 11.9 g/dL (12.0-15.0) L 11/12/22 05:32 Hct 35.2 % (36.0-45.0) L 11/12/22 05:32 Plt Count 172 thou/uL (152-406) 11/12/22 05:32 PT 11.2 SECONDS (9.5-12.5) 11/09/22 00:13 INR 1.02 11/09/22 00:13 Sodium 135 mEq/L (136-145) L 11/12/22 05:32 Potassium 3.6 mEq/L (3.5-5.1) 11/12/22 05:32 BUN 19 mg/dL (7-18) H 11/12/22 05:32 Creatinine 0.96 mg/dL (0.55-1.02) 11/12/22 05:32 Glucose 318 mg/dL (74-106) H 11/12/22 05:32 Magnesium 1.7 mg/dL (1.6-2.4) 11/12/22 05:32 Total Bilirubin 0.4 mg/dL (0.2-1.0) 11/12/22 05:32 AST 35 U/L (15-37) 11/12/22 05:32 ALT 47 U/L (13-56) 11/12/22 05:32 Alkaline Phosphatase 123 U/L (45-117) H 11/12/22 05:32 Lipase 27 U/L (13-75) 11/11/22 06:51 Home Medications: Duloxetine HCl 60 mg PO DAILY 11/09/22 Gabapentin 300 mg PO TID 11/09/22 Losartan Potassium [Cozaar] 25 mg PO DAILY 11/09/22 Quetiapine Fumarate [Seroquel] 50 mg PO BEDTIME 11/09/22 Rosuvastatin Calcium 5 mg PO DAILY 11/09/22 Physician Discharge Instructions: Patient presented with alcohol intoxication. Troponins were elevated x5 with peak of 1405. BNP 284. Cardiology was consulted. Stress test showed Moderate sized area of mild stress- induced ischemia involving the left ventricular anterior wall near the apex. Patient was noted to have elevated troponin levels and started on therapeutic lovenox. Cardiology consulted. Stress test positive. Cardiac catheterization noted severe multivessel disease. Dr. Douglas transferred patient for CABG. During her hospitalization, patient was noted to have lower abdominal cramps and burning pain when urinating. Patient was started on Empiric Rocephin to cover for suspected UTI. Symptoms resolved after 2 days of antibiotics. Patient remained afebrile throughout hospitalization without leukocytosis. Time spent managing pt's care (in minutes): 45
--- NOTE | 2022-11-14 18:45 | CON ---
Date of Consultation: 11/11/2022 Reason For Consultation: Elevated troponin and positive stress test. History Of Present Illness: A 66-year-old female, history of hypertension, diabetes, dyslipidemia, p resented to the emergency room after being brought in by police for alcohol intoxication, being found sitting in her car [place] the [place]. She refused to get out of the car and she tri ed to run and she was tazed by the police and brought into the emergency room. She was heavily intox icated with alcohol. After she woke up, she admitted to complaining of some chest pain periodically on and off and exertion related, but no active chest pain at the moment of evaluation. Past Medical History: Diabetes, hypertension, dyslipidemia. Medication: Refer consult sheet for detailed list. Allergies: NO KNOWN DRUG ALLERGIES. Family History: No premature coronary artery disease or cancer. Social History: She is an active smoker and also she drinks alcohol on a regular basis. Does not us e on any drugs. Review of Systems: All systems reviewed were negative except as mentioned in HPI. Physical Examination: Vital Signs: Reviewed. Head and Neck: Pupils are equal, reactive to light. Intact eye movements. No JVD. No cervical lym phadenopathy. Neck: Supple. Thyroid is not enlarged. Lungs: Clear to auscultation bilaterally. No rhonchi, rales, or crackles. No accessory muscle use. Heart: Regular rate and rhythm. No extra sounds. Abdomen: Soft, nontender. Bowel sounds positive. No organomegaly. No masses or hernia. No rigidi ty or rebound. Extremities: No edema, clubbing, cyanosis. Intact pulses. Skin: No rash. Neurologic: Alert, awake, oriented x3. No acute focal is appreciated. Investigations: BUN 19, creatinine 0.94, and her troponins were peaked at 1405 and down to 361. Str ess test was abnormal with reversible ischemia, moderate in size involving the anterior and apical wa lls. Assessment And Recommendations: 1.Goq-[id number] myocardial infarction. She had a stress test that was positive. Keep n.p.o. Pl an for coronary angiogram either today or tomorrow morning based on this schedule, patient is chest p ain-free at the present time. Recommend IV heparin and baby aspirin and high-dose statin. 2.Hyperlipidemia. Recommend Lipitor 40 mg q.h.s. 3.Hypertension. Recommend to start Coreg and titrate up and can add amlodipine if needed. SR/MODL Voice ID: [id number] Report ID: [id number]
--- NOTE | 2022-11-14 20:51 | PN ---
Date of Progress Note: 11/12/2022 Subjective: Seen by bedside, status post coronary angiogram that revealed severe multivessel coronar y artery disease. Review of Systems: No active chest pain, shortness of breath, orthopnea, or cough. No nausea, vomiting, or diarrhea. A ll other systems were reviewed, they were negative except what was mentioned in HPI. Objective: Vital Signs: Reviewed. Head and Neck: Pupils are equal, reactive to light. Intact eye movements. No JVD. No cervical lym phadenopathy. Neck is supple. Thyroid is not enlarged. Lungs: Clear to auscultation bilaterally. No rhonchi, wheezing, or crackles. No accessory muscle u se. Heart: Regular rate and rhythm. No extra sounds. Abdomen: Soft, nontender. Bowel sounds positive. No organomegaly. No masses or hernia. No rigidi ty or rebound. Extremities: No edema, clubbing, or cyanosis. Intact pulses. Skin: No rash. No nodules. Neurologic: Alert, awake, oriented x3. No acute focal deficits appreciated. Investigations: Labs were reviewed. Assessment And Recommendations: 1.Jpu-ZE-[id number] myocardial infarction. Coronary angiogram revealed severe multivessel coronary a rtery disease. I recommended coronary artery bypass graft. I discussed with her and she agreed to [facility] for coronary artery bypass grafting surgery. I discussed the case with the CT Surgery, Dr. Jimena hart, at [facility] who kindly accepted the patient and we will transfer the patient b y ambulance to have her coronary bypass grafting tomorrow morning. 2.Dyslipidemia. I recommend Lipitor 40 mg q.h.s. SR/MODL Voice ID: [id number] Report ID: [id number]
== END 2022-11-12 20:30 | disposition short-term general hospital (02) | DRG 896 ==
LOC: ER 00:04 → ERHOLD 02:57 → 4TH 20:50
PROVIDERS: ADMIT Internal Medicine; ATTEND Hospitalist
PROC: 4A023N7 Measurement of Cardiac Sampling and Pressure, Left Heart, Percutaneous Approach (ICD-10-PCS; principal; 2022-11-12)
PROC: B2111ZZ Fluoroscopy of Multiple Coronary Arteries using Low Osmolar Contrast (ICD-10-PCS; 2022-11-12)
DX: F10.129 Alcohol abuse with intoxication, unspecified (principal); E11.10 Type 2 diabetes mellitus with ketoacidosis without coma; I21.4 Non-ST elevation (NSTEMI) myocardial infarction; E87.1 Hypo-osmolality and hyponatremia; N17.9 Acute kidney failure, unspecified; N39.0 Urinary tract infection, site not specified; F10.139 Alcohol abuse with withdrawal, unspecified; I10 Essential (primary) hypertension; E78.5 Hyperlipidemia, unspecified; F32.A Depression, unspecified; E86.0 Dehydration; F17.200 Nicotine dependence, unspecified, uncomplicated; I25.10 Atherosclerotic heart disease of native coronary artery without angina pectoris; R77.8 Other specified abnormalities of plasma proteins; Z79.4 Long term (current) use of insulin; Z90.49 Acquired absence of other specified parts of digestive tract; Z98.84 Bariatric surgery status; Z79.899 Other long term (current) drug therapy; Z90.710 Acquired absence of both cervix and uterus; Y90.9 Presence of alcohol in blood, level not specified
CPT/HCPCS: 36415; 51702; 70450; 71045; 76937; 78452; 80048; 80053; 80076; 80143; 80179; 80307; 81001; 82077; 82550; 82947; 83036; 83690; 83735; 83880; 84484; 85025; 85610; 93005; 93017; 93306; 93458; 96372; 99285; A9500; C1893; J0360; J0461; J0696; J1644; J1815; J2001; J2250; J2270; J2405; J2785; J3010; J3475; J3486; J7030; J7040; Q9966

== ENCOUNTER 2022-12-08 08:28 | Emergency (ER) | payer OTHER ==
--- OUTSIDE RECORDS SUMMARY | 2022-12-08 08:43 | XMS REPORT | Continuity of Care Document ---
:1955 Author Organization [facility] t Address [address] [place] [address] Care Team Providers Name Role Phone Asked, No Pcp Primary Care Physician Unavailable NLOAN MACKEY Attending Clinician Unavailable Laura Erickson MA Attending Clinician Unavailable Juan Carlos ETIENNE, Kami Grant Attending Clinician [phone] Christiana Estrada DO Attending Clinician [phone] Dany Hancock MD Attending Clinician [phone] Dany Patel MD Attending Clinician [phone] Estefanía Ibrahim MD Attending Clinician Nida Lynn Attending Clinician Roman Gardner MD Attending Clinician [phone] INESSA PRICE Attending Clinician Unavailable Heri Richey Attending Clinician Unavailable [id number] Attending Clinician Unavailable CHRISTIANA ESTRADA Admitting Clinician Unavailable Heri Richey Admitting Clinician Unavailable Payers Payer Name Policy Type Policy Number Effective Date Expiration Date Cynthia NEW 7 [id number] 2022 00:00:00 PLUS 42 OA Problems Condition Condition Condition Status Onset Resolution Last Treating Co mments Source Name Details Category Date Date Treatment Clinician Date Essential Essential Disease Active Met [facility]odi hypertensi hypertensi 8-25 [facility] on on 00:00: Hospita 00 l Mixed Mixed Disease Active [facility] hyperlipid hyperlipid 8-25 st emia emia 00:00: Hospita 00 l CAD CAD Disease Active Method[facility] (coronary (coronary 8-16 st artery artery 00:00: Hospita disease) disease) 00 l of artery of artery bypass bypass graft graft Vitamin D Vitamin D Disease Active Met [facility] deficiency deficiency 812 st 00:00: Hospita 00 l Type 2 Type 2 Disease Active Method[facility] diabetes diabetes 806 st mellitus mellitus 00:00: Hospit a with with 00 l hyperglyce hyperglyce rod rod Chest pain Chest pain Disease Active M ethodi at rest at rest 804 st 00:00: Hospita 00 l Coronary Coronary Disease Active Metho di artery artery 804 st disease disease 00:00: Hospita involving involving 00 l [place] heart heart without without angina angina pectoris pectoris Immunodefi Immunodefi Disease Active K elsey ciency due ciency due 3-30 Se ybold to to 00:00: - conditions conditions 00 Ex terna classified classified l elsewhere elsewhere Stress Stress Disease Active Maria M incontinen incontinen 3-15 Se ybold ce of ce of 00:00: - urine urine 00 Externa l Seasonal Seasonal Disease Active Kelse y allergic allergic 3-15 Seybol d rhinitis rhinitis 00:00: - due to due to 00 Externa pollen pollen l Current Current Disease Active Maria M mild mild 3-15 Seybold episode of episode of 00:00: - 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 depressive depressive l disorder disorder without without prior prior episode episode Primary Primary Disease Active Maria M hypertensi hypertensi 3-15 Se ybold on on 00:00: - 00 Externa l Primary Primary Disease Active Maria M insomnia insomnia 3-15 Seybol d 00:00: - 00 Externa l Chronic Chronic Disease Active Maria M bilateral bilateral 3-15 Seyb old low back low back 00:00: - pain pain 00 Externa without without l sciatica sciatica DDD DDD Disease Active Maria M (degenerat (degenerat 3-15 Se ybold henry disc henry disc 00:00: - disease), disease), 00 Exte rna lumbar lumbar l History of History of Disease Active K elsey back back 3-15 Seybold surgery surgery 00:00: - 00 Externa l Class 1 Class 1 Disease Active Maria M obesity obesity 3-15 Seybold due to due to 00:00: - excess excess 00 Externa calories calories l with with serious serious comorbidit comorbidit y and body y and body mass index mass index (BMI) of (BMI) of 31.0 to 31.0 to 31.9 in 31.9 in adult adult Type 2 Type 2 Disease Active Maria M diabetes diabetes 3-15 Seybol d mellitus mellitus [...] l 2 diabetes 2 diabetes mellitus mellitus Allergies, Adverse Reactions, Alerts Allergy Allergy Status Severity Reaction(s) Onset Inactive Treating Comm ents Source Name Type Date Date Clinician No Known DA Active [facility] Allergie 803 Clear s 00:00: [place] 00 [facility] Family History Family Member Diagnosis Comments Start Date Stop Date Source Natural father [facility] Social History Social Habit Start Date Stop Date Quantity Comments Source Gender [facility] History of tobacco Current smoker [facility] History of Social 2022-12-04 2022-12-[address] function 00:00:00 00:00:00 Hospital Alcohol intake 2022-11-26 2022-11-26 Current drinker [facility] dist 00:00:00 00:00:00 of alcohol Hospital (finding) Alcohol Comment 2022-11-17 2022-11-17 bacardi and coke Met [facility]ist 00:00:00 00:00:00 Hospital Tobacco use and 2022-11-14 2022-11-14 Smokeless [facility] exposure 00:00:00 00:00:00 tobacco non-user Hospital Sex Ass[birth year] At [birth year] [facility] 00:00:00 00:00:00 Hospital Smoking Status Start Date Stop Date Source Ex-smoker 2022-11-14 00:00:00 2022-11-14 00:00:00 [facility] Never smoked tobacco Maria M Chapinmelissa old - External Medications Ordered Filled Start Stop Current Ordering Indication Dosage Frequency Signature Comments Components Source Medication Medication Date Date Medication? Clinician (SIG) Name Name insulin asp Yes 25U Q.5D Inject Meth nura prt-insulin 12-[address] ASPART 15:01: (25 Units Hospit a (NovoLOG 03 total) l 70/30) 100 under the unit/mL skin 2 (70-30) (two) injection times a day before meals. QUEtiapine Yes 50mg QD Take 1 Metho di (SEROquel) 12-06 tablet (50 st 50 MG 15:01: mg total) Hospita tablet 03 by mouth l nightly. propranolol Yes 120mg QD Take 1 Met hodi XL 12-[address] (INNOPRAN 15:01: (120 mg Hospi ta XL) 120 MG 03 total) by l 24 hr mouth capsule nightly. gabapentin 2022-0 2022- No 300mg Q.[id number] Take 1 Methodi (NEURONTIN) 12-[id number] 300 mg 15:01: 00:00 3D (300 mg Hospita capsule 03 :00 total) by l mouth 3 (three) times a day. losartan 2022-0 2022- No 25mg QD Take 1 Method i (COZAAR) 25 12-06- tablet (25 s t MG tablet 15:01: 00:00 mg total) Ho spita 03 :00 by mouth l nightly. rosuvastati 2022-0 2022- No 5mg QD Take 1 Met hodi n (CRESTOR) 12-06 tablet (5 st 5 mg tablet 15:01: 00:00 mg total) Hospita 03 :00 by mouth l nightly. duloxetine 2022- No Take by Met hodi HCl 12-[address] (DULOXETINE 15:01: 00:00 Hospi ta ORAL) 03 :00 l aspirin 2022- Yes 81mg QD Take 1 [facility] (ECOTRIN) 12-06 tablet (81 st 81 MG 00:00: 04:59 mg total) Hospit a enteric 00 :00 by mouth l coated daily for tablet 30 days. ertapenem 1 2022- Yes 1g Q24H Infuse 1 g Methodi g in sodium 12-[address] chloride 00:00: 04:59 venous Hospit a 0.9 % MBP 00 :00 catheter l 50 mL IVPB daily for 5 days. ergocalcife 2023- Yes [id number] Q7D Take 1 M ethodi rol 12-[address] (VITAMIN 00:00: 04:59 (50,000 Hospi ta D2) 50,000 00 :00 Units l unit total) by capsule mouth once a week. furosemide 2022- Yes 40mg Q.5D Take 1 Meth nura (LASIX) 40 12-05 tablet (40 st mg tablet 00:00: 04:59 mg total) Ho spita 00 :00 by mouth 2 l (two) times a day for 30 days. insulin Yes 8U Q.[id number] Inject Me thodi LISPRO 12-02 [id number] 0.08 mL (8 s t (ADMELOG) 00:00: 3D Units Hospita 100 unit/mL 00 total) l subcutaneou under the s vial skin 3 (three) times a day before meals. lactulose 0 Yes 20g Q.5D Take 30 mL Me thodi 20 gram/30 12-02 ([address] mL solution 00:00: total) by H ospita 00 mouth 2 l (two) times a day. oxyCODONE Yes [id number] 2.5mg Q6H Take 0.5 Me thodi (ROXICODONE -[address] ) 5 MG 00:00: (2.5 mg Hospita immediate 00 total) by l release mouth tablet every 6 (six) hours as needed for severe pain .acute pain. Max Daily Amount: 10 mg thiamine Yes 100mg QD Take 1 Method i mononitrate - tablet st , vit B1, 00:00: (100 mg Hospi ta (B-1) 100 00 total) by l mg tablet mouth daily. traMADoL Yes [id number] 50mg Q6H Take 1 Method i (ULTRAM) 50 - tablet (50 st mg tablet 00:00: mg total) Hos beatrice 00 by mouth l every 6 (six) hours as needed for moderate pain .acute pain. gabapentin 2023- Yes 200mg Q.[id number] Take 2 Methodi (NEURONTIN) 12-[id number] 100 mg 00:00: 04:59 3D (200 mg Hospita capsule 00 :00 total) by l mouth 3 (three) times a day. rosuvastati 2023- Yes 40mg QD Take 1 Met hodi n (CRESTOR) 12-02 tablet (40 s t 40 MG 00:00: 04:59 mg total) Hospit a tablet 00 :00 by mouth l nightly. DULoxetine 2023- Yes 90mg QD Take 3 Meth nura (CYMBALTA) 12-[address] 30 MG 00:00: 04:59 (90 mg Hospita capsule 00 :00 total) by l mouth every evening. folic acid 2023- Yes 1mg QD Take 1 Meth nura (FOLVITE) 1 12-02 tablet (1 st MG tablet 00:00: 04:59 mg total) Ho spita 00 :00 by mouth l daily. multivitami 2023- Yes 1{tbl} QD Take 1 M ethodi n tablet 12-[address] 00:00: 04:59 mouth Hospita 00 :00 daily. l ramelteon 2023- Yes 8mg QD Take 1 Metho di (ROZEREM) 8 12-02 tablet (8 st mg tablet 00:00: 04:59 mg total) Ho spita 00 :00 by mouth l nightly. sennosides- 2023- Yes 1{tbl} Q.5D Take 1 M ethodi docusate 12-[address] sodium 00:00: 04:59 mouth 2 Hospita (SENOKOT-S) 00 :00 (two) l 8.6-50 mg times a per tablet day. bisacodyL 2022- Yes 10mg Q24H Insert 1 Met hodi (DULCOLAX) 12-[address] 10 mg 00:00: 04:59 y (10 mg Hospita suppository 00 :00 total) l into the rectum daily as needed for constipati on (if no bowel movement after 3 days) for up to 30 days. docusate 2022- Yes 100mg Q.5D Take 1 Metho di sodium 12-[address] (COLACE) 00:00: 04:59 (100 mg Hospi ta 100 MG 00 :00 total) by l capsule mouth 2 (two) times a day for 30 days. methocarbam 2022- Yes 500mg Q.[id number] Take 1 Methodi oL 12-[id number] (ROBAXIN) 00:00: 04:59 3D (500 mg Hosp [facility] 500 MG 00 :00 total) by l tablet mouth 3 (three) times a day as needed for muscle spasms for up to 30 days. polyethylen 2022- Yes 17g QD Take 17 g Methodi e glycol 12-[address] (MIRALAX) 00:00: 04:59 daily for Ho spita 17 gram 00 :00 30 days. l packet Amitriptyli 2022- No [id number] 75mg Take 75 mg Maria M ne HCl 75 3-30 03-30 by mouth 2 Sey bold MG oral 14:07: 00:00 times - Tablet 35 :00 daily Externa l Duloxetine 2022- No [id number] 60mg Take 60 mg Maria M HCl 60 MG 3-30 03-30 by mouth Seybo ld oral Cap DR 14:07: 00:00 daily - Particles 25 :00 Externa l Quetiapine 2022- No [id number] 50mg Take 50 mg Maria M Fumarate 50 -30 03-30 by mouth Sey bold MG oral 14:07: 00:00 nightly - Tablet 01 :00 Externa l Propranolol 0 Yes 120mg Take 120 K elsey HCl CR 120 3-30 mg by Seybold MG oral 13:43: mouth - Capsule 24 17 daily Externa Hour l Sustained Release Rosuvastati Yes [id number] 5mg Take 5 mg Maria M n Calcium 5 3-30 3 by mouth Seyb old MG oral 13:43: daily - Tablet 17 Externa l Gabapentin Yes [id number] 300mg Take 300 Maria M 300 MG oral 3-30 mg by Seybold Capsule 13:43: mouth 3 - 17 times Externa daily l Montelukast Yes [id number] 10mg Take 10 mg Maria M (SINGULAIR) 3-30 by mouth Seyb old 10 MG oral 13:43: nightly - Tablet 17 Externa tablet l Insulin Yes [id number] 10 units Maria M Glargine 3-30 3 sc every Seybold (Basaglar 00:00: day - KwikPen) 00 Externa 100 UNIT/ML l subcutaneou s Solution Pen-injecto r Blood 2022- Yes [id number] Check BS Eugenio sey Glucose 3-30 twice Seybold Monitoring 00:00: daily - Suppl 00 Externa (Blood l Glucose Monitor System) w/Device does not apply Kit Glucose Yes [id number] 1{each} 1 each by Maria M Blood in 3-30 other Seybold vitro Strip 00:00: route - 00 daily Externa Check BS l twice daily Quetiapine Yes [id number] 50mg Take 1 Ke lsey Fumarate 50 3-30 tablet (50 Se ybold MG oral 00:00: mg total) - Tablet 00 by mouth Externa nightly l Duloxetine Yes [id number] 60mg Take 1 Maria M HCl 60 MG 3-30 capsule Seybold oral Cap DR 00:00: (60 mg - Particles 00 total) by Exter na mouth l daily Propranolol 2022-0 Yes 120mg Take 120 K elsey HCl CR 120 3-15 mg by Seybold MG oral 15:37: mouth - Capsule 24 51 daily Externa Hour l Sustained Release Duloxetine Yes [id number] 60mg Take 60 mg Maria M HCl 60 MG 3-15 by mouth Seybol d oral Cap DR 15:13: daily - Particles 54 Externa l Rosuvastati Yes [id number] 5mg Take 5 mg Maria M n Calcium 5 3-15 3 by mouth Seyb old MG oral 15:13: daily - Tablet 54 Externa l Quetiapine Yes [id number] 50mg Take 50 mg Maria M Fumarate 50 3-15 by mouth Seyb old MG oral 15:13: nightly - Tablet 54 Externa l Amitriptyli Yes [id number] 75mg Take 75 mg Maria M ne HCl 75 3-15 by mouth 2 Seyb old MG oral 15:13: times - Tablet 54 daily Externa l Gabapentin Yes [id number] 300mg Take 300 Maria M 300 MG oral 3-15 mg by Seybold Capsule 15:13: mouth 3 - 54 times Externa daily l Montelukast Yes [id number] 10mg Take 10 mg Maria M (SINGULAIR) 3-15 by mouth Seyb old 10 MG oral 15:13: nightly - Tablet 54 Externa tablet l FLUTICASONE Yes [id number] 50ug Use 1 K elsey PROPIONATE, 3-15 spray (50 Sey bold NASAL, 50 00:00: mcg total) - MCG/ACT 00 in each Externa nasal nostril l Suspension daily INSULIN Yes [id number] 20 units K elsey ISOPHANE & 3-15 sc every Seybo ld REG MIX, 00:00: am and 10 - HUMAN, 00 unit sc Externa (NovoLIN every pm l 70/30 ReliOn) (70-30) 100 UNIT/ML subcutaneou s Suspension Losartan Yes [id number] 25mg Take 1 Eugenio sey Potassium 3-15 tablet (25 Seyb old 25 MG oral 00:00: mg total) - Tablet 00 by mouth Externa daily l FLUTICASONE Yes [id number] 50ug Use 1 K elsey PROPIONATE, 3-15 spray (50 Sey bold NASAL, 50 00:00: mcg total) - MCG/ACT 00 in each Externa nasal nostril l Suspension daily Losartan Yes [id number] 25mg Take 1 Eugenio sey Potassium 3-15 tablet (25 Seyb old 25 MG oral 00:00: mg total) - Tablet 00 by mouth Externa daily l INSULIN 2022- No [id number] 20 units Maria M ISOPHANE & 3-15 -30 sc every Seyb old REG MIX, 00:00: 00:00 am and 10 - HUMAN, 00 :00 unit sc Externa (NovoLIN every pm l 70/30 ReliOn) (30) 100 UNIT/ML subcutaneou s Suspension NovoLIN 2022- No [id number] INJECT 120 Maria M 70/30 2-03 15 3 UNITS Seybold ReliOn 00:00: 00:00 UNDER [...] Source Systolic blood 2022-07-09 18:42:00 154 mm[Hg] Maria M Woods - pressure External Diastolic blood 2022-07-09 18:42:00 90 mm[Hg] Jun Woods - pressure External Heart rate 2022-07-09 18:42:00 110 /min Maria M coburn - External Body temperature 2022-07-09 18:42:00 36.28 Cora Lizzy bhatti Seybluz - External Respiratory rate 2022-07-09 18:42:00 14 /min Lizzy Woods - External Body height 2022-07-09 18:42:00 167.6 cm Maria M coburn - External Body weight 2022-07-09 18:42:00 87.091 kg Maria M coburn - External BMI 2022-07-09 18:42:00 30.99 kg/m2 Maria M coburn - External Oxygen saturation in 2022-07-09 18:42:00 99 /min Maria M Seybold - Arterial blood by External Pulse oximetry Systolic blood 2022-06-24 20:06:00 154 mm[Hg] Maria M Seybold - pressure External Diastolic blood 2022-06-24 20:06:00 92 mm[Hg] Jun y Seybold - pressure External Heart rate 2022-06-24 20:06:00 124 /min Maria M S eybold - External Body temperature 2022-06-24 20:06:00 36.61 Cora Lizzy ey Seybold - External Respiratory rate 2022-06-24 20:06:00 14 /min Lizzy ey Seybold - External Body height 2022-06-24 20:06:00 167.6 cm Maria M S eybold - External Body weight 2022-06-24 20:06:00 88.905 kg Maria M S eybold - External BMI 2022-06-24 20:06:00 31.64 kg/m2 Maria M S eybold - External Oxygen saturation in 2022-06-24 20:06:00 99 /min Maria M Seybold - Arterial blood by External Pulse oximetry Heart rate 2022-12-05 18:59:00 84 /min [facility] Respiratory rate 2022-12-05 17:00:22 18 /min [facility] Oxygen saturation in 2022-12-05 17:00:22 93 /min [facility] Arterial blood by Pulse oximetry Systolic blood 2022-12-05 17:00:22 122 mm[Hg] [facility] pressure Diastolic blood 2022-12-05 17:00:22 59 mm[Hg] [facility] pressure Body temperature 2022-12-05 17:00:[address] [facility] Body weight 2022-12-05 09:35:58 88.905 kg [facility] BMI 2022-12-05 09:35:58 31.50 kg/m2 [facility] Body height 2022-11-24 15:00:00 168 cm [facility] Procedures Procedure Date / Time Performing Clinician Source Performed POC GLUCOSE 2022-12-05 17:01:00 Estefanía Ibrahim POC GLUCOSE 2022-12-05 12:19:00 Estefanía Ibrahim spital BASIC METABOLIC PANEL 2022-12-05 10:01:00 Sundeep Ferris [facility] ESTIMATED GFR 2022-12-05 10:01:00 [facility] 2022-12-05 01:54:00 JoEstefanía sánchze Ho spital POC GLUCOSE 2022-12-04 23:15:00 JoEstefanía sánchez Ho spital POC GLUCOSE 2022-12-04 22:54:00 JoEstefanía sánchez Ho spital POC GLUCOSE 2022-12-04 17:07:00 JoglEstefanía villagran Ho spital POC GLUCOSE 2022-12-04 15:05:00 Estefanía Ibrahim spital XR PICC CHEST PORTABLE 2022-12-04 14:37:49 [place] [facility] PICC INSERTION REQUEST 2022-12-04 14:21:[address] [facility] POC GLUCOSE 2022-12-04 13:16:00 Estefanía Ibrahim Ho spital BASIC METABOLIC PANEL 2022-12-04 10:48:00 Sundeep Ferris [facility] ESTIMATED GFR 2022-12-04 10:48:00 Sundeep Ferris [facility] CBC WITH PLATELET AND 2022-12-04 10:48:00 Sundeep Ferris [facility] DIFFERENTIAL [facility] POC GLUCOSE 2022-12-04 02:19:00 Estefanía Ibrahim Ho spital POC GLUCOSE 2022-12-03 22:51:00 JoEstefnaía sánchez spital POC GLUCOSE 2022-12-03 18:53:00 JoEstefanía sánchez Ho spital POC GLUCOSE 2022-12-03 16:55:00 JoEstefanía sánchez Ho spital POC GLUCOSE 2022-12-03 13:49:00 JoEstefanía sánchez Ho spital BASIC METABOLIC PANEL 2022-12-03 09:39:00 Sundeep Ferris [facility] ESTIMATED GFR 2022-12-03 09:39:00 Karo Ferrisil [facility] spital aratkumar CBC WITH PLATELET AND 2022-12-03 09:39:00 [facility] DIFFERENTIAL [facility] POC GLUCOSE 2022-12-03 02:04:00 Estefanía Ibrahim Ho spital POC GLUCOSE 2022-12-02 23:27:00 Estefanía Ibrahim Ho spital POC GLUCOSE 2022-12-02 23:15:00 JoEstefanía sánchez Ho spital POC GLUCOSE 2022-12-02 18:43:00 JoglEstefanía villagran Ho spital POC GLUCOSE 2022-12-02 13:44:00 Estefanía Ibrahim Ho spital ECG 12-LEAD 2022-12-02 10:49:50 Shreya Hernandez H ospital Elane XR CHEST 1 VW PORTABLE 2022-12-02 08:10:07 [facility] LACT[facility] ACID LEVEL 2022-12-02 08:04:00 [facility] BETA HYDROXYBUTYRATE 2022-12-02 08:04:00 [facility] BASIC METABOLIC PANEL 2022-12-02 08:04:00 [facility] ESTIMATED GFR 2022-12-02 08:04:[address] [facility] MAGNESIUM LEV[facility] 2022-12-02 08:04:[address] [facility] spital aratkumar PHOSPHORUS LEVEL 2022-12-02 08:04:00 [facility] H ospital Bharatkumar ECG 12-LEAD 2022-12-02 07:27:34 [facility]AD 2022-12-02 07:26:47 [facility] POC [facility]UCOSE 2022-12-02 02:27:00 Estefanía Ibrahim Ho spital POC GLUCOSE 2022-12-01 22:51:00 Estefanía Ibrahim Ho spital POC GLUCOSE 2022-12-01 17:44:00 Estefanía Ibrahim Ho spital POC GLUCOSE 2022-12-01 13:10:00 Estefanía Ibrahim Ho spital BASIC METABOLIC PANEL 2022-12-01 09:40:00 [place] [facility] CBC WITH PLATELET AND 2022-12-01 09:40[facility]FR 2022-12-01 09:40:00 Estefanía Ibrahmi Ho spital MAGNESIUM LEVEL 2022-12-01 09:40:00 Estefanía Ibrahim Ho spital POC GLUCOSE 2022-12-01 02:44:00 Dany Patel Ho spital Alberto POC GLUCOSE 2022-11-30 22:55:00 Dany Patel spital Alberto POC GLUCOSE 2022-11-30 19:02:00 Dany Patel spital Alberto POC GLUCOSE 2022-11-30 17:19:00 Dany Patel spital Alberto CBC WITH PLATELET AND 2022-11-30 14:13:00 [facility] DIFFERENTIAL Jordon BASIC METABOLIC PANEL 2022-11-30 14:13:00 [facility] Jordon ESTIMATED GFR 2022-11-30 14:13:00 Roman Gardner spital Jordon POC GLUCOSE 2022-11-30 13:39:00 Dany Patel spital Alberto POC GLUCOSE 2022-11-30 02:15:00 Dany Patel spital Alberto URINE CULTURE 2022-11-29 23:28:00 César Kary [facility] URINALYSIS SCREEN AND 2022-11-29 22:24:00 Lindsey Kary [facility] MICROSCOPY, WITH REFLEX TO CULTURE POC GLUCOSE 2022-11-29 22:23:00 Dany Patel spital Alberto POC GLUCOSE 2022-11-29 19:01:00 Dany Patel spital Alberto POC GLUCOSE 2022-11-29 16:53:00 Dany Patel Ho spital Alberto XR CHEST 1 VW PORTABLE 2022-11-29 13:54:45 Guest, [facility] POC GLUCOSE 2022-11-29 12:27:00 Dany Patel Ho spital Alberto COMPREHENSIVE METABOLIC 2022-11-29 10:17:00 Guest, [facility] PANEL [facility] ESTIMATED GFR 2022-11-29 10:17:00 Guest, [facility] CBC WITH PLATELET AND 2022-11-29 10:17:00 Guest, [facility] DIFFERENTIAL [facility] MAGNESIUM LEVEL 2022-11-29 10:17:00 Guest, [facility] POC GLUCOSE 2022-11-29 05:22:00 Dany Patel Ho spital Alberto POC GLUCOSE 2022-11-29 01:55:00 Dany Patel Ho spital Alberto POC GLUCOSE 2022-11-29 00:44:00 Dany Patel Ho spital Alberto POC GLUCOSE 2022-11-28 22:43:00 Dany Patel Ho spital Alberto POC GLUCOSE 2022-11-28 19:24:00 Dany Patel Ho spital Alberto GLUCOSE LEVEL 2022-11-28 17:34:00 William Murray Ho spital POC GLUCOSE 2022-11-28 17:21:00 Dany Patel Ho spital Alberto POC GLUCOSE 2022-11-28 17:16:00 Dany Patel Ho spital Alberto POC GLUCOSE 2022-11-28 17:14:00 Dany Patel Ho spital Alberto POC GLUCOSE 2022-11-28 13:34:00 Dany Patel spital Alberto XR CHEST 1 VW PORTABLE 2022-11-28 09:45:26 Guest, [facility] COMPREHENSIVE METABOLIC 2022-11-28 06:00:00 Rud[facility] PANEL [facility] ARTERIAL BLOOD GAS 2022-11-28 06:00:00 Loreta, Rudi Galvan [facility] PROTHROMBIN TIME WITH INR 2022-11-28 06:00:00 Loreta, [facility] PARTIAL THROMBOPLASTIN 2022-11-28 06:00:00 Loreta, [facility] TIME (PTT) [facility] ESTIMATED GFR 2022-11-28 06:00:00 Loreta, [facility] MAGNESIUM LEVEL 2022-11-28 06:00:00 Guest, [facility] PHOSPHORUS LEVEL 2022-11-28 06:00:00 Loreta, [facility] POC GLUCOSE 2022-11-28 04:38:00 Dany Patel Ho spital Alberto POC GLUCOSE 2022-11-28 00:40:00 Dany Patel Ho spital Alberto POC GLUCOSE 2022-11-27 21:40:00 Dany Patel Ho spital Alberto POC GLUCOSE 2022-11-27 16:27:00 Dany Patel Ho spital Alberto POC GLUCOSE 2022-11-27 15:13:00 Dany Patel Ho spital Alberto POC GLUCOSE 2022-11-27 12:47:00 Dany Patel spital Alberto POC GLUCOSE 2022-11-27 11:26:00 Dany Patel Ho spital Alberto POC GLUCOSE 2022-11-27 09:48:00 Dany Patel Ho spital Alberto ECG 12-LEAD 2022-11-27 07:58:34 Shreya Hernandez H ospital [place] POC GLUCOSE 2022-11-27 07:35:00 Dany Patel spital Alberto XR CHEST 1 VW PORTABLE 2022-11-27 06:53:52 Loreta [facility] COMPREHENSIVE METABOLIC 2022-11-27 05:47:00 Guest, [facility] PANEL [facility] ARTERIAL BLOOD GAS 2022-11-27 05:47:00 Guest, [facility] PROTHROMBIN TIME WITH INR 2022-11-27 05:47:00 Guest, [facility] PARTIAL THROMBOPLASTIN 2022-11-27 05:47:00 Guest, [facility] TIME (PTT) [facility] ESTIMATED GFR 2022-11-27 05:47:00 Guest, [facility] PHOSPHORUS LEVEL 2022-11-27 05:47:00 Guest, [facility] CBC WITH PLATELET AND 2022-11-27 05:46:00 Guest, [facility] DIFFERENTIAL [facility] POC GLUCOSE 2022-11-27 05:29:00 Dany Patel Ho spital Alberto POC GLUCOSE 2022-11-27 03:07:00 Dany Patel Ho spital Alberto POC GLUCOSE 2022-11-27 01:25:00 Dany Patel [facility] [place] POC GLUCOSE 2022-11-26 23:18:00 Dany Pat[facility] [place] POC GLUCOSE 2022-11-26 21:19:00 Dany Patel [facility] [place] POC GLUCOSE 2022-11-26 19:11:00 Dany Patel [facility] [place] BASIC METABOLIC PANEL 2022-11-26 17:19:00 Giovanna Busby [facility] ARTERIAL BLOOD GAS 2022-11-26 17:19:[address] [facility] ESTIMATED GFR 2022-11-26 17:19:00 Giovanna Busby [facility] POC GLUCOSE 2022-11-26 16:48:00 Dany Patel [facility] [place] POC GLUCOSE 2022-11-26 15:31:00 Dany Patel [facility] [place] POC GLUCOSE 2022-11-26 13:17:00 Dany Patel spital [place] POC GLUCOSE 2022-11-26 10:44:00 Dany Patel [facility] [place] XR CHEST 1 VW PORTABLE 2022-11-26 10:43:[address] [facility] [place] POTASSIUM LEVEL 2022-11-26 09:59:00 Giovanna Busby [facility] ARTERIAL BLOOD GAS 2022-11-26 09:59:00 [facility] hospital[facility] POC GLUCOSE 2022-11-26 08:55:00 Dany Patel [facility] [place] ECG 12-LEAD 2022-11-26 08:06:31 Loretta Lozano [facility] POC GLUCOSE 2022-11-26 08:06:00 Dany Patel spital [place] POC GLUCOSE 2022-11-26 06:58:00 Dany Patel sp[facility] [place] POC GLUCOSE 2022-11-26 06:00:00 Dany Patel [facility]ital [place] ARTERIAL BLOOD GAS 2022-11-26 05:13:00 [facility] hospitalGi[facility] IONIZED CALCIUM, ARTERIAL 2022-11-26 05:13:00 [facility] WITH PLATELET AND 2022-11-26 05:12:00 Danielneponsit beach hospitalGiovanna [facility] DIFFERENTIAL MAGNESIUM LEVEL 2022-11-26 05:12:00 [facility] Hospital[facility] PHOSPHORUS LEVEL 2022-11-26 05:12:00 [facility] medellin [facility] COMPREHENSIVE METABOLIC 2022-11-26 05:12:00 Vito Wynne [facility] PANEL ESTIMATED GFR 2022-11-26 05:12:00 [facility] Hospital[facility] BILIRUBIN DIRECT 2022-11-26 05:12:00 [facility] center[facility] medellin [facility] POC GLUCOSE 2022-11-26 04:50:00 Dany Patel [facility] [place] POC GLUCOSE 2022-11-26 04:09:00 Falaye, Dany [facility] [place] POC GLUCOSE 2022-11-26 03:00:00 Dany Patel spital [place] POC GLUCOSE 2022-11-26 01:58:00 Dany Patel [facility] [place] POC GLUCOSE 2022-11-26 01:03:00 Dany Patel [facility] [place] ARTERIAL BLOOD GAS 2022-11-25 23:57:00 [facility] POC GLUCOSE 2022-11-25 23:17:00 Dany Patel [facility] [place] POC GLUCOSE 2022-11-25 21:41:00 Dany Patel [facility] [place] XR CHEST 1 VW PORTABLE 2022-11-25 20:03:17 [facility] POC GLUCOSE 2022-11-25 20:03:00 Dany Patel [facility] [place] LINE/DRAIN REMOVAL 2022-11-25 19:45:00 Gurdeep Boyer [facility] POC GLUCOSE 2022-11-25 19:13:00 Dany Patel [facility] [place] POC GLUCOSE 2022-11-25 18:09:00 Dany Patel [facility] [place] POC GLUCOSE 2022-11-25 17:13:00 Dany Patel [facility] [place] POC GLUCOSE 2022-11-25 15:00:00 Dany Patel [facility] [place] ECG 12-LEAD 2022-11-25 14:59:36 Vasquez Marti [facility] POC GLUCOSE 2022-11-25 12:55:00 Dany Patel [facility] [place] POC GLUCOSE 2022-11-25 11:53:00 Dany Patel [facility] [place] POC GLUCOSE 2022-11-25 11:13:00 Dany Patel spital [place] XR CHEST 1 VW PORTABLE 2022-11-25 10:38:00 [facility] POC GLUCOSE 2022-11-25 09:07:00 Dany Patel [facility] [place] ECG 12-LEAD 2022-11-25 08:20:38 Shreya Hernandez [facility] [place] POC GLUCOSE 2022-11-25 08:06:00 Dany Patel [facility] [place] POC GLUCOSE 2022-11-25 07:26:00 Dany Patel spital [place] POC GLUCOSE 2022-11-25 06:38:00 Dany Patel spital [place] ARTERIAL BLOOD GAS 2022-11-25 05:33:00 [facility] BASIC METABOLIC PANEL 2022-11-25 05:33:00 [facility] CBC WITH PLATELET AND 2022-11-25 05:33:00 [facility] DIFFERENTIAL HEPATIC FUNCTION PANEL 2022-11-25 05:33:00 [facility] HospitalGiovanna [facility] MAGNESIUM LEVEL 2022-11-25 05:33:00 [facility] Hospital[facility]ell[facility] PHOSPHORUS LEVEL 2022-11-25 05:33:00 [facility] ESTIMATED GFR 2022-11-25 05:33:00 [facility] IONIZED CALCIUM, ARTERIAL 2022-11-25 05:33:00 [facility] POC GLUCOSE 2022-11-25 05:04:00 Dany Patel spital [place] POC GLUCOSE 2022-11-25 04:22:00 Dany Patel spital [place] POC GLUCOSE 2022-11-25 03:00:00 Dany Patel spital [place] POC GLUCOSE 2022-11-25 02:06:00 Dany Patel spital [place] POC GLUCOSE 2022-11-25 01:08:00 Dany Patel spital [place] ECG 12-LEAD 2022-11-24 23:53:28 Shreya Hernandez ospital [facility] XR CHEST 1 VW PORTABLE 2022-11-24 23:35:00 [facility], [facility] BASIC METABOLIC PANEL 2022-11-24 22:40:00 [facility], [facility] CBC WITH PLATELET AND 2022-11-24 22:40:00 [facility], [facility] DIFFERENTIAL [facility] MAGNESIUM LEVEL 2022-11-24 22:40:00 [facility], [facility] ospital [facility] PHOSPHORUS LEVEL 2022-11-24 22:40:00 [facility], [facility] PROTHROMBIN TIME WITH INR 2022-11-24 22:40:00 [facility], [facility] PARTIAL THROMBOPLASTIN 2022-11-24 22:40:00 [facility], [facility] TIME (PTT) [facility] ARTERIAL BLOOD GAS 2022-11-24 22:40:00 [facility], [facility] LACTIC ACID LEVEL 2022-11-24 22:40:00 [facility], [facility] ESTIM[facility] GFR 2022-11-24 22:40:00 [facility], [facility] IONIZED CALCIUM, ARTERIAL 2022-11-24 22:40:00 [facility], [facility] FIBRINOGEN 2022-11-24 22:40:00 [facility], [facility] POC GLUCOSE 2022-11-24 22:39:00 [facility] Alberto POC ARTERIAL BLOOD GAS, 2022-11-24 21:55:00 [facility] CORRECTED AND LYTES Alberto POC ARTERIAL BLOOD GAS, 2022-11-24 21:13:00 [facility] CORRECTED AND LYTES Alberto ACTIVATED CLOTTING TIME 2022-11-24 20:56:00 [facility] Alberto POC ARTERIAL BLOOD GAS, 2022-11-24 20:27:00 [facility] CORRECTED AND LYTES Alberto HEMOGLOBIN & HEMATOCRIT 2022-11-24 20:15:00 [facility] Alberto PLATELET COUNT 2022-11-24 20:15:00 Dany Patel [facility] [place] PROTHROMBIN TIME WITH INR 2022-11-24 20:15:00 [facility] FIBRINOGEN 2022-11-24 20:15:00 Amanda Dany Briseno [facility] [place] POC ARTERIAL BLOOD GAS, 2022-11-24 20:14:00 [facility] CORRECTED AND LYTES Alberto ACTIVATED CLOTTING TIME 2022-11-24 20:09:00 [facility] TRANSFUSE RED BLOOD CELLS 2022-11-24 19:47:00 [facility] POC ARTERIAL BLOOD GAS, 2022-11-24 19:45:00 [facility] CORRECTED AND LYTES Alberto ACTIVATED CLOTTING TIME 2022-11-24 19:40:00 [facility] Alberto HEMOGLOBIN & HEMATOCRIT 2022-11-24 19:28:00 [facility] [place] PLATELET COUNT 2022-11-24 19:28:00 Deepayousif Dany Briseno [facility] [place] PROTHROMBIN TIME WITH INR 2022-11-24 19:28:00 [facility] FIBRINOGEN 2022-11-24 19:28:00 Amanda Dany Birseno [facility] [place] POC ARTERIAL BLOOD GAS, 2022-11-24 19:17:00 [facility] CORRECTED AND LYTES Alberto ACTIVATED CLOTTING TIME 2022-11-24 19:12:00 [facility] [place] TRANSFUSE RED BLOOD CELLS 2022-11-24 19:07:00 [facility] POC ARTERIAL BLOOD GAS, 2022-11-24 19:03:00 [facility] CORRECTED AND LYTES Alberto TRANSFUSE RED BLOOD CELLS 2022-11-24 18:51:00 George [facility] POC ARTERIAL BLOOD GAS, 2022-11-24 18:46:00 [facility] CORRECTED AND LYTES Alberto ACTIVATED CLOTTING TIME 2022-11-24 18:40:00 [facility] POC ARTERIAL BLOOD GAS, 2022-11-24 17:58:00 [facility] CORRECTED AND LYTES Alberto ACTIVATED CLOTTING TIME 2022-11-24 17:53:00 [facility] ANESTHESIA SANGEETA 2022-11-24 17:25:42 Dionicio Vazquez spital [place] PA CATHETER 2022-11-24 17:23:56 Dionicio Vazquez spital [place] CENTRAL LINE 2022-11-24 17:22:58 Dionicio Vazquez [facility]ital [place] ARTERIAL LINE 2022-11-24 16:47:25 Dionicio Vazquez spital [place] POC ARTERIAL BLOOD GAS, 2022-11-24 16:28:00 [facility] CORRECTED AND LYTES Alberto ACTIVATED CLOTTING TIME 2022-11-24 16:22:00 [facility] [place] [place] AN ELECTIVE 2022-11-24 16:01:00 Dionicio Vazquez spital ENDOTRACHEAL AIRWAY [place] CABG, WITH CARDIOPULMONARY 2022-11-24 15:43:00 [facility] BYPASS PUMP Jordon POC GLUCOSE 2022-11-24 12:24:00 Dany Hancock TYPE AND SCREEN 2022-11-24 09:05:00 Lynette Aviles [facility] MAGNESIUM LEVEL 2022-11-24 09:05:00 Dany Hancock CBC WITH PLATELET AND 2022-11-24 09:05:00 Santi [facility] TORY Jordan BASIC METABOLIC PANEL 2022-11-24 09:05:00 Santi [facility] Julian ESTIMATED GFR 2022-11-24 09:05:00 Dany Hancock PREPARE RBC 2022-11-24 09:05:00 Lynette Aviles [facility] POC GLUCOSE 2022-11-24 01:04:00 Dany Hancock [facility] Julian POC GLUCOSE 2022-11-23 23:20:00 Dany Hancock [facility] spital Julian POC GLUCOSE 2022-11-23 16:15:00 Dany Hancock Ho [facility]ital Julian POC GLUCOSE 2022-11-23 13:02:00 Dany Hancock spital Julian MAGNESIUM LEVEL 2022-11-23 10:02:00 Dany Hancock spital Julian CBC WITH PLATELET AND 2022-11-23 10:02:00 Santi [facility] Julian BASIC METABOLIC PANEL 2022-11-23 10:02:00 Santi [facility] Julian ESTIMATED GFR 2022-11-23 10:02:00 Dany Hancock spital Julian POC GLUCOSE 2022-11-23 02:04:00 Dany Hancock spital Julian POC GLUCOSE 2022-11-22 23:33:00 Dany Hancock spital Julian POC GLUCOSE 2022-11-22 18:30:00 Dany Hancock Ho spital Julian POC GLUCOSE 2022-11-22 12:52:00 Dany Hancock Ho spital Julian POC GLUCOSE 2022-11-22 10:51:00 Dany Hancock Ho spital Julian BASIC METABOLIC PANEL 2022-11-22 09:39:00 Santi [facility] Julian ESTIMATED GFR 2022-11-22 09:39:00 Dany Hancock spital Julian CBC HEMOGRAM 2022-11-22 09:39:00 Dany Hancock Ho [facility]ital Julian POC GLUCOSE 2022-11-22 05:18:00 Dany Hancock spital Julian POC GLUCOSE 2022-11-22 02:02:00 Dany Hancock Ho spital Julian POC GLUCOSE 2022-11-21 22:22:00 Dany Hancock spital Julian POC GLUCOSE 2022-11-21 16:23:00 Dany Hancock spital Julian POC GLUCOSE 2022-11-21 13:32:00 Dany Hancocktal Julian MAGNESIUM LEVEL 2022-11-21 10:30:00 Dany Hancock spital Julian CBC WITH PLATELET AND 2022-11-21 10:30:00 [place], [facility] DIFFERENTIAL Julian BASIC METABOLIC PANEL 2022-11-21 10:30:00 Santi [facility] Julian ESTIMATED GFR 2022-11-21 10:30:00 Dany Hancock Ho spital Julian POC GLUCOSE 2022-11-21 10:18:00 Dany Hancock Ho spital Julian POC GLUCOSE 2022-11-21 05:40:00 Dany Hancock spital Julian POC GLUCOSE 2022-11-21 02:13:00 Dany Hancock Ho spital Julian POC GLUCOSE 2022-11-20 22:18:00 Dany Hancock Ho spital Julian POC GLUCOSE 2022-11-20 17:41:00 Dany Hancock Ho spital Julian POC GLUCOSE 2022-11-20 13:05:00 Dany Hancock spital Julian CBC WITH PLATELET AND 2022-11-20 10:29:00 [facility]FFERENTIAL [facility]NESIUM LEVEL 2022-11-20 10:29:00 Dany Hancock Ho spital Julian BASIC METABOLIC PANEL 2022-11-20 10:29:00 Dany Hancock [facility] Julian ESTIMATED GFR 2022-11-20 10:29:00 Dany Hancock Ho spital Julian POC GLUCOSE 2022-11-20 09:21:00 Dany Hancock Ho spital Julian POC GLUCOSE 2022-11-20 05:59:00 Dany Hancock Ho spital Julian POC GLUCOSE 2022-11-20 02:09:00 Dany Hancock spital Julian POC GLUCOSE 2022-11-20 01:07:00 Dany Hancock Ho spital Julian POC GLUCOSE 2022-11-20 00:28:00 Dany Hancock spital Julian POC GLUCOSE 2022-11-19 22:28:00 Dany Hancock Ho spital Julian POC GLUCOSE 2022-11-19 17:51:00 Dany Hancock Ho spital Julian POC GLUCOSE 2022-11-19 13:14:00 Dany Hancock spital Julian CBC WITH PLATELET AND 2022-11-19 10:24:00 [facility] DIFFERENTIAL MAGNESIUM LEVEL 2022-11-19 10:24:00 Dany Hancock Ho spital Julian BASIC METABOLIC PANEL 2022-11-19 10:24:00 Dany Hancock [facility] Julian ESTIMATED GFR 2022-11-19 10:24:00 Dany Hancock spital Julian POC GLUCOSE 2022-11-19 09:23:00 Dany Hancock spital Julian POC GLUCOSE 2022-11-19 05:51:00 Dany Hancock spital Julian POC GLUCOSE 2022-11-19 04:31:00 Dany Hancock spital Julian POC GLUCOSE 2022-11-19 01:55:00 Dany Hancock josetal Julian XR CHEST 1 VW PORTABLE 2022-11-19 00:56:38 [facility] POC GLUCOSE 2022 22:49:00 Dany Hancock josetal Julian BASIC METABOLIC PANEL 2022 21:58:00 [facility] TYPE AND SCREEN 2022 21:58:00 [facility] ESTIMATED GFR 2022 21:58:00 [facility] CREATINE KINASE, TOTAL 2022 21:58:00 [facility] ([facility]) US RENAL 2022 20:41:31 [facility] POC GLUCOSE 2022 17:56:00 Dany Hancock cole Jordan PROTEIN, URINE, RANDOM 2022 14:45:00 [facility] ALBUMIN WITH CREATININE 2022 14:45:00 [facility] AND RATIO, RANDOM URINE URINE CULTURE 2022 14:41:00 [facility] URINALYSIS SCREEN AND 2022 14:41:00 [facility] MICROSCOPY, WITH REFLEX TO CULTURE SODIUM LEVEL, URINE, 2022 14:41:00 [facility] RANDOM CHLORIDE LEVEL, URINE, 2022 14:41:00 [facility] RANDOM CREATININE LEVEL, URINE, 2022 14:41:00 Lynette Wayne [facility] RANDOM POC GLUCOSE 2022 14:21:00 Dany Hancock spisylvester Jordan SPIROMETRY PRE AND POST 2022 12:33:58 Madikireraedwar [facility] WITH BRONCHILATOR, DIFFUSION, LUNG VOLUMES VITAMIN D 25 HYDROXY LEVEL 2022 09:51:00 Sara Cotton [facility] CBC WITH PLATELET AND 2022 09:51:00 [facility] DIFFERENTIAL MAGNESIUM LEVEL 2022 09:51:00 Dany Hacnock spisylvester Jordan BASIC METABOLIC PANEL 2022 09:51:00 Santi [facility] Julian ESTIMATED GFR 2022 09:51:00 Dany Hancock spital Julian POC GLUCOSE 2022 01:59:00 Dany Hancock spital Julian POC GLUCOSE 2022-11-17 23:09:00 Dany Hancock spital Julian POC GLUCOSE 2022-11-17 19:06:00 Dany Hancock spital Julian US VEIN MAPPING LOWER 2022-11-17 19:00:00 Joan Baez [facility] EXTREMITY BILATERAL POC GLUCOSE 2022-11-17 12:49:00 Dany Hancock spital Julian POC GLUCOSE 2022-11-17 10:25:00 Dany Hancocktal Julian CBC WITH PLATELET AND 2022-11-17 10:16:00 [facility] DIFFERENTIAL COMPREHENSIVE METABOLIC 2022-11-17 10:16:00 Santi [facility] PANEL Julian ESTIMATED GFR 2022-11-17 10:16:00 Dany Hancock spital Julian POC GLUCOSE 2022-11-17 02:39:00 Dany Hancock spital Julian POC GLUCOSE 2022-11-16 23:06:00 Dany Hancock spital Julian POC GLUCOSE 2022-11-16 17:43:00 Dany Hancock spital Julian POC GLUCOSE 2022-11-16 13:38:00 Dany Hancock spital Julian TTE COMPLETE, W CONTRAST, 2022-11-16 13:07:18 HaileylaNatalie mendoza [facility] W DOPPLER ([id number]) [place] CBC WITH PLATELET AND 2022-11-16 09:37:00 [facility] DIFFERENTIAL COMPREHENSIVE METABOLIC 2022-11-16 09:37:00 [facility] PANEL ESTIMATED GFR 2022-11-16 09:37:00 August [facility] POC GLUCOSE 2022-11-16 02:22:00 Dany Hancock Ho spital Julian POC GLUCOSE 2022-11-15 22:20:00 Dany Hancock spital Julian POC GLUCOSE 2022-11-15 17:11:00 Dany Hancocktal Julian US CAROTID DUPLEX 2022-11-15 17:03:00 Banneredwar [facility] BILATERAL POC GLUCOSE 2022-11-15 12:24:00 Dany Hancock spital Julian CBC WITH PLATELET AND 2022-11-15 09:37:00 [facility] DIFFERENTIAL COMPREHENSIVE METABOLIC 2022-11-15 09:37:00 [facility] PANEL HEMOGLOBIN A1C 2022-11-15 09:37:00 Opal Gregoriotal LIPID PANEL 2022-11-15 09:37:00 Opal Gregorio spital ESTIMATED GFR 2022-11-15 09:37:00 August [facility] US HEPATIC 2022-11-15 06:15:00 Dany Hancock spital Julian POC GLUCOSE 2022-11-15 05:00:00 Dany Hancock spital Julian POC GLUCOSE 2022-11-15 03:36:00 Dany Hancock spital Julian POC GLUCOSE 2022-11-15 01:49:00 Dany Hancock spital Julian POC GLUCOSE 2022-11-14 23:16:00 Dany Hancock spital Julian POC GLUCOSE 2022-11-14 18:06:00 Dany Hancock spital Julian POC GLUCOSE 2022-11-14 17:40:00 Dany Hancock spital Julian CBC WITH PLATELET AND 2022-11-14 15:54:00 Jovi [facility] DIFFERENTIAL COMPREHENSIVE METABOLIC 2022-11-14 15:54:[address] [facility] PANEL NT-PROBNP 2022-11-14 15:54:00 Gus Espana Ho spital ESTIMATED GFR 2022-11-14 15:54:00 [facility] TROPONIN T 2022-11-14 15:54:00 August [facility] POC GLUCOSE 2022-11-14 13:59:00 Dany Hancock spital Julian POC GLUCOSE 2022-11-14 12:59:00 Dany Hancock Julian TROPONIN T 2022-11-14 01:44:00 Kami Rangel spital Rudy LACTIC ACID LEVEL, SEPSIS 2022-11-14 01:44:00 Kami Rangel [facility] - NOW AND REPEAT 2X EVERY Rudy 3 HOURS COMPREHENSIVE METABOLIC 2022-11-13 23:32:[address] [facility] PANEL Rudy ESTIMATED GFR 2022-11-13 23:32:00 Kami Rangel Ho spital Rudy TROPONIN T 2022-11-13 21:45:00 [facility] Rud[facility] LACTIC ACID LEVEL, SEPSIS 2022-11-13 21:45:00 Kami Rangel [facility] - NOW AND REPEAT 2X EVERY Rudy 3 HOURS XR CHEST 1 VW PORTABLE 2022-11-13 19:21:00 Kami RangelFormerly [facility] Rudy ECG ED PRELIMINARY 2022-11-13 19:14:39 [facility] INTERPRETATION Rudy COMPREHENSIVE METABOLIC 2022-11-13 19:11:[address] [facility] PANEL Rudy CBC WITH PLATELET AND 2022-11-13 19:11:00 Kami Rangel [facility] DIFFERENTIAL Rudy TROPONIN T 2022-11-13 19:11:00 Kami Rangel Ho spital Rudy NT-PROBNP 2022-11-13 19:11:00 Kami Rangel spital Rudy ESTIMATED GFR 2022-11-13 19:11:00 Kami Rangel spital [place] LACTIC ACID LEVEL, SEPSIS 2022-11-13 19:11:00 Kami Rangel [facility] - NOW AND REPEAT 2X EVERY Rudy 3 HOURS PROTHROMBIN TIME WITH INR 2022-11-13 19:11:00 Kami Rangel [facility] PARTIAL THROMBOPLASTIN 2022-11-13 19:11:[address] [facility] TIME (PTT) Rudy POC GLUCOSE 2022-11-13 19:11:00 Kami Rangel [facility] Rudy ECG 12-LEAD 2022-11-13 18:43:47 [facility] P[facility]SE 2022-11-13 18:41:00 Provider, Unknown [facility] [place] EXTERNAL STUDY EXAM 2022-11-12 19:19:[address] [facility] Jordon Plan of Care Planned Activity Planned Date Details Comments Source Future Scheduled 2022-12-07 Screening for [facility] Test 07:06:11 malignant neoplasm of colon (procedure) [code = 076247373] Future Scheduled 2022-12-07 Screening for [facility] Test 07:06:11 malignant neoplasm of colon (procedure) [code = 086322886] Future Scheduled 2022-12-07 65+ PNEUMOCOCCAL [facility] Test 07:06:11 VACCINE (1 - PCV) [code = 65+ PNEUMOCOCCAL VACCINE (1 - PCV)] Future Scheduled 2022-12-07 DIABETES: RETINAL EYE [facility] Test 07:06:11 EXAM [code = DIABETES: RETINAL EYE EXAM] Future Scheduled 2022-12-07 DIABETIC FOOT EXAM [facility] Test 07:06:11 [code = DIABETIC FOOT EXAM] Future Scheduled 2022-12-07 Hepatitis C screening [facility] Test 07:06:11 (procedure) [code = 133415615] Future Scheduled 2022-12-07 BREAST CANCER [facility] Test 07:06:11 SCREENING [code = BREAST CANCER SCREENING] Future Scheduled 2022-12-07 Screening for [facility] Test 07:06:11 malignant neoplasm of colon (procedure) [code = 474436578] Future Scheduled 2022-12-07 SHINGLES VACCINES (1 Met [facility] Test 07:06:11 of 2) [code = SHINGLES VACCINES (1 of 2)] Future Scheduled 2022-12-07 COVID-19 VACCINE (3 - [facility] Test 07:06:11 Pfizer series) [code = COVID-19 VACCINE (3 - Pfizer series)] Future Scheduled 2022-12-07 INFLUENZA VACCINE (#[facility]) [facility] 07:06:11 [code = INFLUENZA VACCINE (#1)] Future Scheduled 2022-12-07 [facility] Test 07:06:11 malignant neoplasm of colon (procedure) [code = 607775514] Future Scheduled 2022-12-07 [facility] Test 07:06:11 malignant neoplasm of colon (procedure) [code = 033253825] Future Scheduled 2022-12-07 URINE MICROALBUMIN [facility] Test 07:06:11 [code = URINE MICROALBUMIN] Encounters Start End Encounter Admission Attending Care Care Encounter Source Date/Time Date/Time Type Type Clinicians Facility Department ID 2022-12-07 2022-12-07 Outpatient MARIA M MACKEY [id number] Maria M 14:15:00 14:15:00 NOLAN harrington 2022-12-07 2022-12-07 Telephone Dre 1.2.840.1 [id number] Methodi 00:00:00 00:00:00 Laura Sal [id number] 677 s t 3.430.2.7 Hospit a .3.193631 l .8 2022-11-13 2022-12-05 [facility] 1.2.840.1 [id number] Methodi 13:42:00 15:01:00 Encounter Christiana Estrada [id number] Dany Hancock 3.430.2.7 Hospita Dany Patel .[id number] Estefanía Ball .8 2022-11-13 2022-12-05 Inpatient [facility] [id number] [place] 00:00:00 00:00:00 ESTEFANÍA [address] 2022-12-02 2022-12-02 Outpatient MARIA M MACKEY [id number] Maria M 00:00:00 00:00:00 NOLAN Seybol d 2022-11-24 2022-11-24 Anesthesia Nida Lynn 1.2.840.1 [id number] [facility] 10:44:00 17:28:00 Event Roland 17332.1.[address] 3.430.2.7 Hospit a .3.129062 l .8 2022-11-24 2022-11-24 Surgery Atkins, 1.2.840.1 [id number] [facility] 11:00:00 16:45:[address] [place] 3.430.2.7 Hospit a .3.252672 l .8 2022-11-16 2022-11-16 Outpatient INESSA PRICE [id number] Maria M 14:30:00 14:30:00 Seybol d 2022-11-12 2022-11-13 Inpatient Rossi [facility] [id number] [facility] 21:54:00 12:26:00 Heri 89 [facility] 2022-11-05 2022-11-05 Outpatient MARIA M MACKEY [id number] Maria M 00:00:00 00:00:00 NOLAN Seybol d 2022-11-04 2022-11-04 Outpatient MARIA M MACKEY [id number] Maria M 00:00:00 00:00:00 NOLAN Seybol d 2022-11-02 2022-11-02 Outpatient MARIA M MACKEY [id number] Maria M 00:00:00 00:00:00 NOLAN Seybol d 2022-10-04 2022-10-04 Outpatient MARIA M MACKEY [id number] Maria M 00:00:00 00:00:00 NOLAN Seybol d 2022-09-30 2022-09-30 Outpatient MARIA M MACKEY [id number] 03 Maria M 00:00:00 00:00:00 NOLAN Seybol d 2022-08-13 2022-08-13 Outpatient MARIA M MACKEY [id number] Maria M 00:00:00 00:00:00 NOLAN Seybol d 2022-08-12 2022-08-12 Outpatient MARIA M HERNANDEZ [id number] Maria M 15:30:00 15:30:00 Seybol d 2022-08-10 2022-08-10 Outpatient PREZAS, MARIA M HERNANDEZ [id number] Maria M 00:00:00 00:00:00 NOLAN Seybol d 2022-08-06 2022-08-06 Outpatient PREZASMARIA M [id number] Maria M 15:00:00 15:00:00 NOLAN Seybol d 2022-07-31 2022-07-31 Outpatient MARIA M HERNANDEZ [id number] Maria M 14:00:00 14:00:00 Seybol d 2022-07-21 2022-07-21 Outpatient PREZASMARIA M [id number] Maria M 00:00:00 00:00:00 NOLAN Seybol d 2022-07-14 2022-07-14 Outpatient PREZASMARIA M [id number] 30 Maria M 00:00:00 00:00:00 NOLAN Seybol d 2022-07-13 2022-07-13 Outpatient PREZASMARIA M [id number] 07 Maria M 00:00:00 00:00:00 NOLAN Seybol d 2022-07-09 2022-07-09 Outpatient LAB90 MARIA M HERNANDEZ [id number] 00 Maria M 17:00:00 17:00:00 Seybol d 2022-07-09 2022-07-09 Outpatient PREZASMARIA M [id number] Maria M 13:45:00 13:45:00 NOLAN Seybol d 2022-07-09 2022-07-09 Outpatient PREZASMARIA M [id number] 08 Maria M 00:00:00 00:00:00 NOLAN Seybol d 2022-07-02 2022-07-02 Outpatient PREZASMARIA M [id number] Maria M 00:00:00 00:00:00 NOLAN Seybol d 2022-06-30 2022-06-30 Outpatient PREZASMARIA M [id number] Maria M 00:00:00 00:00:00 NOLAN Seybol d 2022-06-26 2022-06-26 Outpatient LAB90 MARIA M MARIA M [id number] Maria M 10:15:00 10:15:00 Seybol d 2022-06-24 2022-06-24 Outpatient LAB90 MARIA M MARIA M [id number] Maria M 15:55:00 15:55:00 Seybol d 2022-06-24 2022-06-24 Outpatient PREZAS, MARIA M MARIA M [id number] Maria M 15:00:00 15:00:00 NOLAN Seybol d Results Test Description Test Time Test Comments Results Result Comments Source POC glucose 2022-12-05 17:02:00 Test Item Value Reference Range Interpretation Comme nts POC glucose (test code = 109 mg/dL 65-99 H Ope rator Name: Jackelin Freitas [id number]) ID: [id number] hartable: [facility] Notified manager epic Interpretation (test code = Abnormal 81594-1) [facility] 12 [id number] 13:29:20 Test Item Value Reference Range Interpretation Comments Ventricular rate 79 (test code = 253) Atrial rate (test 79 code = 255) NV interval (test 154 code = 266) QRSD interval (test 88 code = 260) QT interval (test 552 code = 264) QTC interval (test 632 code = 265) P axis 1 (test code = 42 267) QRS axis 1 (test code 22 = 268) T wave axis (test 13 code = 270) EKG impression (test ^^^ Critical Test code = 273) Result: Long QTc-Normal sinus rhythm-Low voltage QRS-Nonspecific T wave abnormality-Abnormal ECG-In automated comparison with ECG of 02-DEC-2022 02:27,-No significant change was found- [facility] RBC, 2 [id number] 01:00:00 Test Item Value Reference Range Interpretation Comments Product name (test code Red Blood Cells -1, = 25) Leukored Unit number (test code [id number] = [id number]) Product code (test code [id number] = 3092) Dispense status (test Transfused code = 24) Blood expiration date [id number] (test code = 302) Blood type code (test 5100 code = 308) Blood type (test code = O POSITIVE 1314) Compatibility (test Compatible code = 6400) GLADYS (test code = GLADYS) [facility] arterial blood gas, corrected and [id number] 21:56:00 Test Item Value Reference Range Interpretation Comments pH, arterial (test code 7.36 7.35-7.45 = 2744-1) pCO2, arterial (test 36 See_Comment [Autom ated code = 2019-8) message] The system which generated this result transmitted reference range : 35 - 45 mmHg. The reference range was not used to interpret this result as normal/abnormal . pO2, arterial (test 206 See_Comment H [Automa blue code = 2703-7) message] The system which generated this result transmitted reference range : 80 - 90 mmHg. The reference range was not used to interpret this result as normal/abnormal . Temperature, Celsius 37.0 Degrees C (test code = 8310-5) O2 saturation, arterial 95-100 (test code = 2708-6) pH, arterial corrected 7.36 (test code = 63324-4) pCO2, arterial 36 mmHg corrected (test code = 15798-1) pO2, arterial corrected 206 mmHg Oper ator ID: Shane (test code = 70059-2) [facility]: [id number] Base excess, arterial -4 See_Comment L [Auto mated (test code = 1925-7) message ] The system which generated this result transmitted reference range : -2 - 2 mEq/L. The reference range was not used to interpret this result as normal/abnormal . Hemoglobin, syringe 10.1 g/dL 12.0-16.0 L (test code = 718-7) Potassium, syringe 4.4 See_Comment [Automat ed (test code = 81323-7) messag e] The system which generated this result transmitted reference range : 3.5 - 5.0 mEq/L . The reference r xuan was not used to interpret this result as normal/abnormal . Sodium, syringe (test 140 See_Comment [Auto mated code = 2947-0) message] The system which generated this result transmitted reference range : 135 - 148 mEq/L . The reference r xuan was not used to interpret this result as normal/abnormal . Ionized calcium, 1.17 mmol/L 1.11-1.32 arterial (test code = 75374-9) Glucose, syringe (test 135 mg/dL 65-99 H code = 2345-7) Lactic acid, syringe 1.0 mmol/L 0.5-2.2 (test code = 42032-9) Lab Interpretation Abnormal (test code = 78898-7) [facility] [id number] 21:13:00 Test Item Value Reference Range Interpretation Comments Activated clotting time 129 See_Comment Oper ator Name: Shane (test code = 5298) Linus ce ID: [id number] [Automated mess age] The system which ge nerated this result tra nsmitted reference range : 96 - 152 sec. The refere nce range was not used to interpret this result as normal/abnormal . [facility] ED Preliminary Interpretation - Not an [id number] 19:14:39 Test Item Value Reference Range Interpretation Comments GLADYS (test code = GLADYS) Kami Rangel MD 11/22/2022 12:19 [facility] ED Preliminary Interpretation - Not an Order Performed by: Kami Rangel MDAuthorized by: Kami Rangel MD ECG reviewed by ED Physician in the absence of a manager target: yes Previous ECG: Previous ECG: UnavailableInterpretat ion: Interpretation: abnormal Rate: ECG rate: 104 ECG rate assessment: tachycardic Rhythm: Rhythm: sinus tachycardia Ectopy: Ectopy: none QRS: QRS axis: Normal QRS intervals: NormalConduction: Conduction: normal ST segments: ST segments: NormalT waves: T waves: normal Lab Interpretation Abnormal (test code = 66897-0) [facility] [id number] 11:07:00 Test Item Value Reference Range Interpretation Comments GLUCOSE BEDSIDE (test 103 MG/DL 70-110 N Perfor med by certified code = GLUBED) 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 [facility] GLUCOSE [id number] 10:41:00 Test Item Value Reference Range Interpretation Comments GLUCOSE BEDSIDE (test 108 MG/DL 70-110 N Perfor med by certified code = GLUBED) 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 [facility] GLUCOSE [id number] 09:35:00 Test Item Value Reference Range Interpretation Comments GLUCOSE BEDSIDE (test 135 MG/DL 70-110 H Perfor med by certified code = GLUBED) 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 [facility] GLUCOSE [id number] 08:36:00 Test Item Value Reference Range Interpretation Comments GLUCOSE BEDSIDE (test 199 MG/DL 70-110 H Perfor med by certified code = GLUBED) 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 [facility] UA RFLX MICR CULT IF [id number] 06:37:00 Test Item Value Reference Range Interpretation Comments UA COLOR (test code = COLU) YELLOW YEL/STRAW UA APPEARANCE (test code = SL CLOUDY CLEAR APPU) UA GLUCOSE DIPSTICK (test code 1+ NEGATIVE A = DGLUU) UA BILIRUBIN DIPSTICK (test NEGATIVE NEGATIVE code = BILU) UA KETONE DIPSTICK (test code NEGATIVE NEGATIVE = KETU) UA SPECIFIC GRAVITY (test code 1.018 1.005-1.030 N = SGU) UA BLOOD DIPSTICK (test code = NEGATIVE NEGATIVE RUI) UA PH DIPSTICK (test code = 6.0 5.0-7.0 N ASIF) UA PROTEIN DIPSTICK (test code 3+ NEGATIVE A = PROU) UA UROBILINIOGEN DIPSTICK 0.2 mg/dL 0.2-1.0 (test code = URO) UA NITRITE DIPSTICK (test code NEGATIVE NEGATIVE = RAMA) UA LEUKOCYTE ESTERASE DIPSTICK NEGATIVE NEGATIVE (test code = LEUU) UA WBC (test code = WBCU) 0-3 WBC/HPF 0-3 UA RBC (test code = RBCU) 0-3 RBC/HPF 0-3 UA WBC NO REFLEX (test code = 0-3 WBC/HPF 0-3 WBCUCL) UA BACTERIA (test code = BACU) NONE SEEN /HPF NONE SEEN UA SQUAMOUS CELLS (test code = 0-5 /HPF NONE SEEN SQU) UA HYALINE CAST (test code = 0-2 /LPF NONE SEEN HYALU) UA MUCUS (test code = MUCU) TRACE /LPF NONE SEEN Indication for culture: Dysuria/FrequencySpecimen Description: CLEAN CATCHCOVID 19 Asymptomatic IH [id number] 06:36:00 Test Item Value Reference Range Interpretation Comments COVID 19 Asymptomatic Negative Negative A neg ative result is IH AG (test code = presumpti ve and should COVNONPUIAG) be confirmedwit h an FDA authorized mole cular assay, if neces bunny forpatient roberto gonzales.A positive result does not rule out co-inf ections withother patho gens.This test detects brennan th viable (live) and non-viable,SARS -CoV, and SARS-CoV-2. Elpidio t performance dep ends on theamount of vi luke (antigen) in th e sample.This elpidio t has not been FDA cleare d or approved; the t est hasbeen authori zed by FDA under an Em ergency Use Authorizati on(EUA) for use by labo ratories certified under the CLIA thatmeet the requirements to perform moderate, high or waivedcomplexit y tests. PROTHROMBIN [id number] 06:33:00 Test Item Value Reference Range Interpretation Comments PROTHROMBIN TIME 11.0 SECONDS 9.3-12.9 N PATIENT (test code = PTP) INTERNATIONAL NORMAL 1.0 0.8-1.2 N TARGET INR BY RATIO (test code = INDICATIO N Indication INR) INR1. Prophylax is of venous thrombos is 2.0 - 3.0 (orthoped ic surgery), Proph ylaxis of venous throm bosis (other than hig h-risk surgery), Treat ment of Deep Vein Thrombosis/Pulm onary Embolism, Preve ntion of systemic emb olism - Tissue heart va lves, Acute Myocardia l Infarction (to prevent systemic emboli sm), Valvular heart disease, Atrial Fibrillation, Bileaflet mecha nical valve in aortic position.2. Mec hanical prosthetic valv es (high risk), 2. 5 - 3.5 Presence of Lup us Anticoagulant o r Antiphospholipi d Antibodies, Pre vention of systemic emb olism - Acute Myocardia l Infarction (to prevent recurrent infar ct). COMMENTS: IF NOT ALREADY DONE WITHIN LAST 24 HOURSTHROMBOPLASTIN TIME PARTIAL 2022-11-13 06:33:00 Test Item Value Reference Range Interpretation Comments THROMBOPLASTIN TIME 40.3 Seconds 25.0-39.5 H Therape utic Range: PARTIAL (test code = 50.4 - 88.3 Seconds PTT) Effective 07/26/2018 COMMENTS: IF NOT ALREADY DONE WITHIN LAST 24 HOURSCOMPREHENSIVE METABOLIC PANEL 2022-11-13 06:24:00 Test Item Value Reference Range Interpretation Comments SODIUM (test code = 138 mEq/L 134-147 N NA) POTASSIUM (test code 3.4 mEq/L 3.4-5.0 N = K) CHLORIDE (test code 107 mEq/L 100-108 N = CL) CARBON DIOXIDE (test 23 mEq/l 21-33 N code = CO2) ANION GAP (test code 12 0-20 N = GAP) GLUCOSE (test code = 103 mg/dL 70-110 GLU) BLOOD UREA NITROGEN 16 mg/dL 7-18 N (test code = BUN) GLOMERULAR 62.5 80-90 L The Glomerular FILTRATION RATE Filtration R ate is a (test code = GFR) calculated parameterbased on serum Creatinin e, patient age and sex. GFR valuesless than 60 mL/min/1.73 squ are meters are charles cative ofChronic Kidne y Disease. Values less than 15 mL/min/1.73squa re meters indicate Kidney failure. The calculation for GFR is based on the CK D-EPI (2020) calculat ion. This formulais race indifferent and is the recommended for kelsy for GFRby the N ational Kidney Foundati on for Adults.The GFR will not calculate i f the sex is unknown or if thepatient's ag e is <18 years. CREATININE (test 1.0 mg/dL 0.6-1.3 N code = CREAT) TOTAL PROTEIN (test 7.0 g/dL 6.4-8.2 N code = PROT) ALBUMIN (test code = 3.70 g/dL 3.4-5.0 N ALB) CALCIUM (test code = 9.1 mg/dL 8.0-10.5 N CA) BILIRUBIN TOTAL 0.30 mg/dL 0.0-1.0 N (test code = BILT) SGOT/AST (test code 47 IUnit/L 15-37 H = AST) SGPT/ALT (test code 43 IUnit/L 30-65 N = ALT) ALKALINE PHOSPHATASE 125 IUnit/L 20-125 N TOTAL (test code = ALKP) [id number] 06:24:00 Test Item Value Reference Range Interpretation Comments PHOSPHOROUS (test code = PHOS) 2.8 MG/DL 2.5-4.9 N [id number] 06:24:00 Test Item Value Reference Range Interpretation Comments MAGNESIUM (test code = MAG) 2.06 mg/dL 1.80-2.40 TSH REFLEX TO [id number] 06:24:00 Test Item Value Reference Range Interpretation Comments TSH REFLEX TO FT4 (test code = 1.76 IU/mL 0.42-5.47 N TSHREFLEX) TROP-I HIGH [id number] 06:24:00 Test Item Value Reference Range Interpretation Comments TROP-I HIGH 154 ng/L 0-34 HH CAUTION: Units of the SENSITIVITY (test current te st methodology code = TROPIHS) (ng/L) diffe rfrom the prior test meth odology (ng/mL) by a fa ctor of 1000. 99t h Percentile Uppe r Reference Limit (URL): Fe males: 34 ng/LMales: 54 n g/L In order to distin guish acute elevations of h igh sensitivitytrop onin from other clinical conditions, the FourthUnive rsal Definition of M yocardial Infarction stressesclinica l assessment and the demonstration o f a rise and/orfall in s erial troponin result s above the URL. These resu lts were obtained using Siemens Atellica IM TnI Hreagent. Results from di fferent methodologies s hould not becompared to o ne another as quantitative results and URLs mayvar y by method. CBC W/AUTO [id number] 06:14:00 Test Item Value Reference Range Interpretation Comments WHITE BLOOD CELL (test code = 6.6 x10 3/uL 4.5-11.0 N WBC) RED BLOOD CELL (test code = 4.05 x10 6/uL 3.54-5.02 N RBC) HEMOGLOBIN (test code = HGB) 12.6 g/dL 11.0-15.0 N HEMATOCRIT (test code = HCT) 37.9 % 33.0-45.0 N MEAN CELL VOLUME (test code = 93.6 fL 81.0-99.0 N MCV) MEAN CELL HGB (test code = MCH) 31.1 pg 27.0-33.0 N MEAN CELL HGB CONCETRATION 33.2 g/dL 33.0-37.0 N (test code = MCHC) RED CELL DISTRIBUTION WIDTH CV 12.1 % 11.5-14.5 N (test code = RDW) RED CELL DISTRIBUTION WIDTH SD 41.8 fL 37.0-54.0 N (test code = RDW-SD) PLATELET COUNT (test code = 187 x10 3/uL 150-400 N PLT) MEAN PLATELET VOLUME (test code 10.3 fL 7.0-9.0 H = MPV) NEUTROPHIL % (test code = NT%) 57.6 % 56.0-77.0 N IMMATURE GRANULOCYTE % (test 0.3 % 0.0-2.0 N code = IG%) LYMPHOCYTE % (test code = LY%) 30.6 % 14.0-32.0 N MONOCYTE % (test code = MO%) 8.9 % 4.8-9.0 N EOSINOPHIL % (test code = EO%) 2.1 % 0.3-3.7 N BASOPHIL % (test code = BA%) 0.5 % 0.0-2.0 N NUCLEATED RBC % (test code = 0.0 % 0-0 N NRBC%) NEUTROPHIL # (test code = NT#) 3.80 x10 3/uL 2.0-7.6 N IMMATURE GRANULOCYTE # (test 0.02 x10 3/uL 0.00-0.03 N code = IG#) LYMPHOCYTE # (test code = LY#) 2.02 x10 3/uL 1.0-3.8 N MONOCYTE # (test code = MO#) 0.59 x10 3/uL 0.1-0.8 N EOSINOPHIL # (test code = EO#) 0.14 x10 3/uL 0.0-0.2 N BASOPHIL # (test code = BA#) 0.03 x10 3/uL 0.0-0.2 N NUCLEATED RBC # (test code = 0.00 x10 3/uL 0.0-0.1 N NRBC#) MANUAL DIFF REQUIRED (test code NO = MDIFF) GLUCOSE [id number] 04:58:00 Test Item Value Reference Range Interpretation Comments GLUCOSE BEDSIDE (test 115 MG/DL 70-110 H Perfor med by certified code = GLUBED) 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 [facility] TROP-I HIGH [id number] 03:36:00 Test Item Value Reference Range Interpretation Comments TROP-I HIGH 136 ng/L 0-34 HH CAUTION: Units of the SENSITIVITY (test current te st methodology code = TROPIHS) (ng/L) diffe rfrom the prior test meth odology (ng/mL) by a fa ctor of 1000. 99t h Percentile Uppe r Reference Limit (URL): Fe males: 34 ng/LMales: 54 n g/L In order to distin guish acute elevations of h igh sensitivitytrop onin from other clinical conditions, the FourthUnive rsal Definition of M yocardial Infarction stressesclinica l assessment and the demonstration o f a rise and/orfall in s erial troponin result s above the URL. These resu lts were obtained using Siemens AtellNaHere IM TnI Hreagent. Results from di fferent methodologies s hould not becompared to o ne another as quantitative results and URLs mayvar y by method. GLUCOSE [id number] 02:51:00 Test Item Value Reference Range Interpretation Comments GLUCOSE BEDSIDE (test 183 MG/DL 70-110 H Perfor med by certified code = GLUBED) 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 [facility] GLUCOSE [id number] 01:09:00 Test Item Value Reference Range Interpretation Comments GLUCOSE BEDSIDE (test 256 MG/DL 70-110 H Perfor med by certified code = GLUBED) 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 [facility] B-TYPE NATRIURETIC [id number] 00:29:00 Test Item Value Reference Range Interpretation Comments B-TYPE NATRIURETIC PEPTIDE (test 43.0 PG/ML 0-100 N code = BNP) COMPREHENSIVE METABOLIC [id number] 00:14:00 Test Item Value Reference Range Interpretation Comments SODIUM (test code = 135 mEq/L 134-147 N NA) POTASSIUM (test code 3.5 mEq/L 3.4-5.0 N = K) CHLORIDE (test code 102 mEq/L 100-108 N = CL) CARBON DIOXIDE (test 22 mEq/l 21-33 N code = CO2) ANION GAP (test code 14 0-20 N = GAP) GLUCOSE (test code = 303 mg/dL 70-110 H GLU) BLOOD UREA NITROGEN 18 mg/dL 7-18 N (test code = BUN) GLOMERULAR 62.5 80-90 L The Glomerular FILTRATION RATE Filtration R ate is a (test code = GFR) calculated parameterbased on serum Creatinin e, patient age and sex. GFR valuesless than 60 mL/min/1.73 squ are meters are charles cative ofChronic Kidne y Disease. Values less than 15 mL/min/1.73squa re meters indicate Kidney failure. The calculation for GFR is based on the CK D-EPI (2020) calculat ion. This formulais race indifferent and is the recommended for kelsy for GFRby the N [facility] Kidney Foundati on for Adults.The GFR will not calculate i f the sex is unknown or if thepatient's ag e is <18 years. CREATININE (test 1.0 mg/dL 0.6-1.3 N code = CREAT) TOTAL PROTEIN (test 7.2 g/dL 6.4-8.2 N code = PROT) ALBUMIN (test code = 3.70 g/dL 3.4-5.0 N ALB) CALCIUM (test code = 9.3 mg/dL 8.0-10.5 N CA) BILIRUBIN TOTAL 0.40 mg/dL 0.0-1.0 N (test code = BILT) SGOT/AST (test code 48 IUnit/L 15-37 H = AST) SGPT/ALT (test code 44 IUnit/L 30-65 N = ALT) ALKALINE PHOSPHATASE 132 IUnit/L 20-125 H TOTAL (test code = ALKP) LIPID PROFILE (CORONARY RISK)2022-11-13 00:14:00 Test Item Value Reference Range Interpretation Comments TRIGLYCERIDES (test 509 mg/dL 40-150 H code = TRIG) CHOLESTEROL (test 231 mg/dL <200 H code = CHOL) CHOLESTEROL/HDL 3.91 RATIO 3.27-4.44 N RISK ASSOCIA BLUE WITH RATIO (test code = CHOL/HDL RATIOS: RISK CHOLHDL) MALE FEMALE1/2 AVERAGE 3.43 3.27AVERAG E 4.97 4.442X AVERAGE 9.55 7.053X AVERAGE 23.39 11.04 NOTE THAT THE REFERENCE VALUE IS RELATEDTO RISK LEVELS RECOMMENDED BY THE NATL.HEART, ZAN G, AND BLOOD INST. HDL CHOLESTEROL 59.1 MG/DL 40-60 N Note doe e in (test code = HDL) REFERENCE RANGE due to change in REAGENT.HDL Interpretation < 40.0 mg/dL Low (undesirable, h igh risk)> 60.0 mg/ dL High (desirable, low risk) Reference inter barbara for healthy adults was established by theNational Cholesterol Edu cation Program (NCEP). LIPOPROTEIN LDL 124.0 mg/dL 0-100 H <100 OPTIMAL 100-129 (test code = LDL) NEAR OPTIM AL/ABOVE [id number] FRFWTILYBD342-1 89 HIGH>AK=517 CLOVIS Y HIGH*Guidelines provided by the National [facility] terol EducationProgra m Adult Treatment Panel III [id number] 00:14:00 Test Item Value Reference Range Interpretation Comments PHOSPHOROUS (test code = PHOS) 2.5 MG/DL 2.5-4.9 N [id number] 00:14:00 Test Item Value Reference Range Interpretation Comments MAGNESIUM (test code = MAG) 1.52 mg/dL 1.80-2.40 L TROP-I HIGH [id number] 00:14:00 Test Item Value Reference Range Interpretation Comments TROP-I HIGH 148 ng/L 0-34 HH Critical result called to SENSITIVITY (test SARAH MARINELLI RNby code = TROPIHS) cruzSTFMS22 at 0007 11/13/22Nurse r ead back result and tech confirmed it's correct? Y CAUTION: Units of the cu rrent test methodology (ng /L) differfrom the prior test methodology (ng /mL) by a factor of 1000. 99t h Percentile Uppe r Reference Limit (URL): Fe males: 34 ng/LMales: 54 n g/L In order to distin guish acute elevations of h igh sensitivitytrop onin from other clinical conditions, the FourthUnive rsal Definition of M yocardial Infarction stressesclinica l assessment and the demonstration o f a rise and/orfall in s erial troponin result s above the URL. These resu lts were obtained using Siemens Atellica IM TnI Hreagent. Results from di fferent methodologies s hould not becompared to o ne another as quantitative results and URLs mayvar y by method. [id number]%2022-11-13 00:02:00 Test Item Value Reference Range Interpretation Comments HGBA1C% (test code = HGBA1C%) 10.3 %A1C 4.8-6.0 H PROTHROMBIN [id number] 00:02:00 Test Item Value Reference Range Interpretation Comments PROTHROMBIN TIME 11.5 SECONDS 9.3-12.9 N PATIENT (test code = PTP) INTERNATIONAL NORMAL 1.0 0.8-1.2 N TARGET INR BY RATIO (test code = INDICATIO N Indication INR) INR1. Prophylax is of venous thrombos is 2.0 - 3.0 (orthoped ic surgery), Proph ylaxis of venous throm bosis (other than hig h-risk surgery), Treat ment of Deep Vein Thrombosis/Pulm onary Embolism, Preve ntion of systemic emb olism - Tissue heart va lves, Acute Myocardia l Infarction (to prevent systemic emboli sm), Valvular heart disease, Atrial Fibrillation, Bileaflet mecha nical valve in aortic position.2. Mec hanical prosthetic valv es (high risk), 2. 5 - 3.5 Presence of Lup us Anticoagulant o r Antiphospholipi d Antibodies, Pre vention of systemic emb olism - Acute Myocardia l Infarction (to prevent recurrent infar ct). THROMBOPLASTIN TIME [id number] 00:02:00 Test Item Value Reference Range Interpretation Comments THROMBOPLASTIN TIME 43.7 Seconds 25.0-39.5 H Therape utic Range: PARTIAL (test code = 50.4 - 88.3 Seconds PTT) Effective 07/26/2018 - XR CHEST 1 [id number] [facility] 1955 Sex: F FAX: Pineda Felton MD Hana: St: [facility] FAX: Dash Richeyfrancisco [phone] Name: LISA RAWLS [facility] :1955 Age/S: 66/F [address] [place] [address] Unit #: [id number] Loc: G.2208 [place] [address] Phys: Pineda Felton MD Acct: [id number] Dis Date: Status: ADM IN PHONE #: [phone] Exam Date: 11/13/2022 0609 FAX #: [phone] Reason: CVICU EXAMS: CPT CODE: [id number] XR CHEST 1 V 20003 PROCEDURE INFORMATION: Exam: XR Chest Exam date and time: 11/13/2022 5:18 AM Age: 66 years old Clinical indication: Other: Cvicu TECHNIQUE: Imaging protocol: Radiologic exam of the chest. Views: 1 view. COMPARISON: CT CHEST W/O CONTRAST 11/13/2022 2:03 AM FINDINGS: Tubes, catheters and devices: Gastric lap band. Lungs: Hypoventilated lungs. No consolidation. Pleural spaces: Unremarkable. No pleural effusion. No pneumothorax. Heart/Mediastinum: Unremarkable. No cardiomegaly. Bones/joints: Unremarkable. IMPRESSION: No acute findings. at 0713 Reported and signed by: Jayashree Cody M.D. CC: Pineda Felton MD; Heri Richey DO Technologist: RT Osbaldo(Vincent) Trnscrd Date/Time/By: 11/13/2022 (712) : By: [email or web address] Orig Print D/T: S: 11/13/2022 (713) PAGE 1 Signed Report- US ABDOMEN [id number] 00:00:00 [facility] 1955 Sex: F Name: LISA RAWLS [facility] : 1955 Age/S: 66 / F [address] [place] [address] Unit #: [id number] Loc: [place] [address] Phys: Pineda Felton MD Acct: [id number] Dis Date: Status: ADM IN PHONE #: [phone] Exam Date: 11/13/2022 1113 FAX #: [phone] Reason: Evalute for alcoholic liver disease EXAMS: CPT CODE: [id number] US ABDOMEN LTD [id number] PROCEDURE INFORMATION: Exam: US Abdomen, Limited; Right Upper Quadrant Exam date and time: 11/13/2022 5:59 AM Age: 66 years old Clinical indication: Screening exam; Other: Evalute for alcoholic liver disease TECHNIQUE: Imaging protocol: Real time ultrasound of the abdomen with image documentation. Limited exam focused on the right upper quadrant. COMPARISON: CT CHEST W/O CONTRAST 11/13/2022 2:03 AM FINDINGS: Liver: Visualized portions of the liver appear mildly echogenic. Hepatopetal flow in the main portal vein seen. Gallbladder: Not visualized. Common bile duct: 3 mm diameter Pancreas: Obscured by overlying gas. Right kidney: Normal measuring 10.5 cm in length. No hydronephrosis or cortical thinning appreciated. Other: No free fluid seen inMorrison's pouch. 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 Small proximal visualized portions of the abdominal aorta appear normal. IMPRESSION: 1. Findings which may suggest mild hepatic steatosis orother hepatocellular disease. 2. Obscured pancreas. 3. Status post cholecystectomy. Electronicall y Signed by Brody Velasquez on 11/13/2022 at 0844 Reported and signed by: Diego Velasquez M.D. CC: Pineda Felton MD; Heri Richey DO Technologist: Patti Strange [facility] Date/Time: 11/13/2022 (08) [email or web address] Orig Print D/T: S: 11/13/2022 (1115) Probe: PAGE 1 Signed Report- CT CHEST W/O [id number] [facility]00 [facility] 1955 Sex: FName: LISA RAWLS [facility] : 1955 Age/S: 66 / F [address] [place] [address] Blvd Unit #: [id number] Loc: [place] [address] Phys: Lorrie Ledesma Acct: [id number] Dis Date: Status:ADM IN PHONE #: [phone] Exam Date: 11/13/2022205 FAX #: [phone] Reason: Cardiac Surgery Pre Op EXAMS: CPT CODE: [id number] CT CHEST W/O CONTRAST 19942 PROCEDURE INFORMATION: Exam: CT Chest W ithout Contrast; Diagnostic Exam date and time: 11/13/2022 2:03 AM Age: 66 years old Clinical indication: Screening exam; Pre-operative exam; Cardiovascular screening; Additional info: Cardiac surgery pre op TECHNIQUE: Imaging protocol: Diagnostic computed tomography of the chest without contrast. Radiation optimization: All CT scans at this facility use at least one of these dose optimization techniques: automated exposure control; mA and/or kV adjustment per patient size (includes targeted exams where dose is matched to clinical indication); or iterative reconstruction. REPORTING DATA: Count of CT and Cardiac NM exams in prior 12 months: This patient has received 0 known CTs and 0 known cardiac nuclear medicine studies in the 12 months prior to the current study. COMPARISON: No relevant prior studies available. FINDINGS: Lungs: Unremarkable. No consolidation. No masses. Pleural spaces: Unremarkable. No pneumothorax. No pleural effusion. Heart: Trace pericardial effusion. Coronary arteries: Diffuse atherosclerosis of the coronary vasculature. Lymph nodes: Unremarkable. No enlarged lymph nodes. Vasculature: Mild atherosclerosis of the aorta. Stomach and bowel: Gastric band is noted. Bones/joints: Unremarkable. No acute fracture. Soft tissues: Unremarkable. IMPRESSION: 1. Diffuse atherosclerosis of the coronary vasculature. 2. Gastric band. 3. Trace pericardial effusion. at 0229 Reported and signed by: Oren Christopher M.D PAGE 1 Signed Report (CONTINUED) Name: LIAS RAWLS [facility] : 1955 Age/S: 66 / F [address] [place] [address] Bl Unit #: [id number] Loc: [place] [address] Phys: Lorrie Ledesma Acct: [id number] Dis Date: Status: ADM IN PHONE #: [phone] Exam Date: 11/13/2022205 FAX #: [phone] Reason: Cardiac Surgery Pre Op EXAMS: CPT CODE: [id number] CT CHEST W/O CONTRAST 20259 (Continued) CC: Heri Richey DO; Lorrie Ledesma Technologist:Kailey Che, RT(R)(CT) CTDI: DLP: Trnscb Date/Time: 11/13/2022 (228) [email or web address] Orig Print D/T: S: 11/13/2022 (0236) PAGE 2 Signed Report- DUP VEIN [id number] 00:00:00 [facility] 1955 Sex: F Name: LISA RAWLS [facility] : 1955 Age/S: 66 / F [address] [place] [address] Unit #: [id number] Loc: [place] [address] Phys: Lorrie Ledesma Acct: [id number] Dis Date: Status: ADM IN PHONE #: [phone] Exam Date: 11/13/2022 1113 FAX #: [phone] Reason: Cardiac Surgery Pre Op EXAMS: CPT CODE: [id number] [facility] VEIN JULIA [address]87 PROCEDURE INFORMATION: Exam: US Duplex Lower Extremity Veins; Vein mapping Exam date and time: 11/13/2022 6:06 AM Age: 66 years old Clinical indication: Screening exam; Additional info: Cardiac surgery pre op TECHNIQUE: Imaging protocol: Real-time duplex ultrasound of the extremities with 2-D lala scale, color Doppler flow and spectral waveform analysis including responses to compression and other maneuvers (when performed) with image documentation. Complete exam focused on the bilateral lower extremity veins for vein mapping. COMPARISON: No relevant prior studies available. Vein mapping of the greater saphenous veins bilaterally. Measurements are in the anterior to posterior dimension. No thrombosis of the greater saphenous veins bilaterally. Right greater saphenous vein: Proximal thigh 3.5 mm Mid thigh 2.4 mm Distal thigh 1.2 mm Proximal calf 0.7 mm Mid calf 1.2 mm Distal calf 1.2 mm Left greater saphenous vein: Proximal thigh 2.5 mm Mid thigh 2.3 mm Distal thigh 2.3 mm Proximal calf 1.5 mm Mid calf 1.8 mm Distal calf 2.5 mm Impression: 1. Vein mapping of the greater saphenous veins bilaterally as above. at 0711 Reported and signed by: Dann Baumann M.D. CC: Heri Richey DO; Lorrie Ledesma Technologist: Patti Strange Trnscb Date/Time:11/13/2022 (710) Honey.CS18 PAGE 1 Signed Report- DUP EXTRACRANIAL [id number] 00:00:00 [facility] 1955 Sex: F Name: LISA RAWLS [facility] : 1955 Age/S: 66 / F [address] [place] [address] Bl Unit #:[id number] Loc: [place] [address] Phys: Lorrie Ledesma Acct: [id number] Dis Date: Status: ADM IN PHONE #: [phone] Exam Date: 11/13/2022 1113 FAX #: [phone] Reason: Cardiac Surgery Pre Op EXAMS: CPT CODE: [id number] DUP EXTRACRANIAL JULIA 11740 PROCEDURE INFORMATION: Exam: US Duplex Bilateral Extracranial Arteries; Complete; Carotid Arteries Exam date and time: 11/13/2022 5:50 AM Age: 66 years old Clinical indication: Screening exam; Additional info: Cardiac surgery pre op TECHNIQUE:Imaging protocol: Real-time duplex ultrasound scan of the bilateral extracranial arteries combining lala scale, color Doppler and spectral waveform analysis with image documentation. Complete exam. Exam focused on the carotid arteries. COMPARISON: CT CHEST W/O CONTRAST 11/13/2022 2:03 AM FINDINGS: Rightcommon carotid artery: Plaque formation. No occlusion or stenosis. Waveforms are normal. Right internal carotid artery: Plaque formation. No occlusion or stenosis. Waveforms are normal. Right ICA/CCA ratio: Within normal limits. Right external carotid artery: No stenosis in the origin. Right vertebralartery: Unremarkable. Antegrade flow. Left common carotid artery: Plaque formation. No occlusion or s tenosis. Waveforms are normal. Left internal carotid artery: Plaque formation. No occlusion or stenosis. Waveforms are normal. Left ICA/CCA ratio: Within normal limits. Left external carotid artery: Nostenosis in the origin. Left vertebral artery: Unremarkable. Antegrade flow. IMPRESSION: No carotid arterial stenosis. REFERENCES: The degree of internal carotid artery stenosis is based on criteria defined by the IAC Vascular Testing criteria. Normal is no stenosis. Mild is less than 50% stenosis. Moderate is 50-69% stenosis. Severe is greater than 69% stenosis to near occlusion. Near occlusion is amarkedly narrowed lumen. Total occlusion is no detectable patent lumen. at 0753 Reported and signed by: Cristino Perkins M.D. PAGE 1 Signed Report (CONTINUED) Name: LISA RAWLS [facility] : 1955 Age/S: 66 / F [address] [place] [address] Unit #: [id number] Loc: [facility] [place] [address] Phys: Lorrie Ledesma Acct: [id number] Dis Date: Status: ADM IN PHONE #: [phone] Exam Date: 11/13/2022 1113 FAX #: [phone] Reason: Cardiac Surgery Pre Op EXAMS: CPT CODE: [id number] DUP EXTRACRANIAL JULIA 74051 (Continued) CC: Heri Richey DO; Lorrie Ledesma Technologist: Patti Strange Trnmob Date/ Time: 11/13/2022 (075) Adeline Orig Print D/T: S: 11/13/2022 (1115) Probe: PAGE 2 Signed ReportCBC W/AUTO [id number] 23:46:00 Test Item Value Reference Range Interpretation Comments WHITE BLOOD CELL (test code = 5.1 x10 3/uL 4.5-11.0 N WBC) RED BLOOD CELL (test code = 4.18 x10 6/uL 3.54-5.02 N RBC) HEMOGLOBIN (test code = HGB) 13.1 g/dL 11.0-15.0 N HEMATOCRIT (test code = HCT) 39.1 % 33.0-45.0 N MEAN CELL VOLUME (test code = 93.5 fL 81.0-99.0 N MCV) MEAN CELL HGB (test code = MCH) 31.3 pg 27.0-33.0 N MEAN CELL HGB CONCETRATION 33.5 g/dL 33.0-37.0 N (test code = MCHC) RED CELL DISTRIBUTION WIDTH CV 12.2 % 11.5-14.5 N (test code = RDW) RED CELL DISTRIBUTION WIDTH SD 42.1 fL 37.0-54.0 N (test code = RDW-SD) PLATELET COUNT (test code = 175 x10 3/uL 150-400 N PLT) MEAN PLATELET VOLUME (test code 10.2 fL 7.0-9.0 H = MPV) NEUTROPHIL % (test code = NT%) 58.7 % 56.0-77.0 N IMMATURE GRANULOCYTE % (test 0.4 % 0.0-2.0 N code = IG%) LYMPHOCYTE % (test code = LY%) 29.6 % 14.0-32.0 N MONOCYTE % (test code = MO%) 9.1 % 4.8-9.0 H EOSINOPHIL % (test code = EO%) 1.6 % 0.3-3.7 N BASOPHIL % (test code = BA%) 0.6 % 0.0-2.0 N NUCLEATED RBC % (test code = 0.0 % 0-0 N NRBC%) NEUTROPHIL # (test code = NT#) 2.98 x10 3/uL 2.0-7.6 N IMMATURE GRANULOCYTE # (test 0.02 x10 3/uL 0.00-0.03 N code = IG#) LYMPHOCYTE # (test code = LY#) 1.50 x10 3/uL 1.0-3.8 N MONOCYTE # (test code = MO#) 0.46 x10 3/uL 0.1-0.8 N EOSINOPHIL # (test code = EO#) 0.08 x10 3/uL 0.0-0.2 N BASOPHIL # (test code = BA#) 0.03 x10 3/uL 0.0-0.2 N NUCLEATED RBC # (test code = 0.00 x10 3/uL 0.0-0.1 N NRBC#) MANUAL DIFF REQUIRED (test code NO = MDIFF) GLUCOSE [id number] 22:27:00 Test Item Value Reference Range Interpretation Comments GLUCOSE BEDSIDE (test 319 MG/DL 70-110 H Perfor med by certified code = GLUBED) 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 [facility] Notes Date/Time Note Provider Source 2022-11-13 15:45:00-00:00 [id number] [place] [address] PATIENT NAME: LISA RAWLS ADMIT DATE: 07/02 ACCOUNT NO: [id number] ROOM NO: G.2208 AGE: 66 REPORT TYPE: eECHOCARDIOGRAM REPORT SEX: F ADMITTING PHYSICIAN:Heri Richey DO ATTENDING PHYSICIAN:Heri Richey DO *[place] [address] Transthoracic Echocardiogram Patient: Lisa Rawls Study Date: 11/13/2022 BP: 145 / 67 Location: [place] [facility] URN: [id number] : 1955 Age: 66 Height: 66 in / 167.6 cm Gender: F Weight: 178 .6 lb / 81.2 kg BMI/BSA: 28.9 kg/m 2 / 1.91 m 2 *Ordering Physician: * Pineda Felton *Interpreting Physician: * Domi Peralta MD *Barber Stylist: * Sierra Mejía Indications: NSTEMI. Study data: Transthoracic echocardiogram. Proced ure: Transthoracic echocardiography was performed. Image quality wa s adequate. Complete 2D, complete spectral Doppler, and color Doppler . Location: Bedside. Patient status: Inpatient. Patient room number: 2208. Study status: Routine. Findings Left ventricle: The cavity size is normal. Wall thickness is normal. Systolic function is normal. The estimated eject ion fraction is 55-60%. Wall motion is normal; there are no regional wal l motion abnormalities. Doppler parameters are consistent with abnormal left ventricular relaxation (grade 1 diastolic dysfunction). PATIENT NAME: LISA RAWLS [id number] Right ventricle: The cavity size is normal. Syst olic function is normal. Left atrium: The atrium is normal in size. Right atrium: The atrium is normal in size. Aorta: Aortic root: The aortic root is normal in size. Aortic valve: The valve is trileaflet. The leafl ets are moderately thickened and mildly calcified. The findings are consistent with mild stenosis. There is no regurgitation. Mitral valve: The valve is structurally normal. There is no evidence of stenosis. There is trivial regurgita tion. Tricuspid valve: The valve is structurally anthony l. There is trivial regurgitation. Pulmonic valve: The valve is structurally normal . There is no regurgitation. Pericardium: A trivial pericardial effusion is i dentified. Pulmonary arteries: The main pulmonary artery is normal-sized. Systemic veins: Inferior vena cava: The vessel is normal in size . Measurements Left ventricle Value Ref WELL[place], LAX 4.2 cm 3.8 - 5.2 ESD, LAX 2.9 cm 2.2 - 3.5 ESD/bsa, LAX 1.5 cm/m 2 1.3 - 2.1 FS, LAX 30 % 27 - 45 ESD/bsa major ax, 3.9 cm/m 2 -------- A4C [place]/bsa minor ax, 3.9 cm/m 2 -------- A4C [place] major ax, A2C 7.7 cm -------- [place]/bsa major ax, 4.1 cm/m 2 -------- A2C PW, ED 1.2 cm 0.6 - 0.9 IVS/PW, ED 1.13 -------- EF 58 % 54 - 74 E', lat faith, TDI 8.3 cm/sec >=10.0 E/e', lat faith, TDI 9 -------- E', med faith, TDI 6.3 cm/sec >=7.0 E/e', med faith, TDI 12 -------- E', avg, TDI 7.3 cm/sec -------- E/e', avg, TDI 11 <=14 LVOT Value Ref Diam, S 2.02 cm -------- Area 3.2 cm 2 -------- Peak dominic, S 1.13 m/sec -------- Mean dominic, S 0.67 m/sec -------- PATIENT NAME: LISA RAWLS ACCOUNT #: [id number] VTI, S 20.6 cm -------- Peak grad, S 5 mm Hg -------- Mean grad, S 2 mm Hg -------- SV 66 ml -------- Qs 5.45 L/min -------- Qs/bsa 2.9 L/(min-m 2) -------- SV/bsa 35 ml/m 2 -------- Ventricular septum Value Ref IVS, ED 1.3 cm 0.6 - 0.9 Right ventricle Value Ref WELL[place], LAX 3.5 cm -------- Pressure, S 29 mm Hg -------- RVOT Value Ref Peak v, S 1 m/sec -------- Peak grad, S 4 mm Hg -------- Left atrium Value Ref Vol/bsa, ES, 1-p 32 ml/m 2 11 - 40 A4C Vol, ES, 2-p 68 ml -------- Vol/bsa, ES, 2-p 35 ml/m 2 16 - 34 Vol/bsa, ES, A/L 32 ml/m 2 16 - 34 AP dim, ES MM 3.4 cm 2.7 - 3.8 LA/Ao root ratio, 1.14 -------- MM Aortic valve Value Ref Leaflet sep, MM 1.30 cm -------- Peak v, S 2.41 m/sec -------- Mean v, S 1.64 m/sec -------- VTI, S 43.1 cm -------- Mean grad, S 11.8 mm Hg -------- Peak grad, S 23.2 mm Hg -------- LVOT/AV, VTI ratio 0.48 -------- REGGIE, VTI 1.53 cm 2 -------- LVOT/AV, Vpeak 0.47 -------- ratio REGGIE, Vmax 1.50 cm 2 -------- Mitral valve Value Ref E-septal 0.6 cm -------- separation E-F slope 0.04 m/sec -------- Peak E 0.07 m/sec -------- Peak A 1.36 m/sec -------- Decel time 187 ms -------- PHT 51 ms -------- Peak E/A ratio 0.57 -------- MVA, PHT 4.3 cm 2 -------- PATIENT NAME: LISA RAWLS [id number] Pulmonic valve Value Ref NV v, ED 0.83 m/sec -------- Tricuspid valve Value Ref TR peak v 2.2 m/sec <=2.8 Peak RV-RA grad, S 19 mm Hg -------- Aortic root Value Ref Root diam, ED MM 3.02 cm -------- Pulmonary artery Value Ref Pressure, S 23.6 mm Hg -------- Systemic veins Value Ref Estimated CVP 10 mm Hg -------- Conclusions Summary: 1. Left ventricle: The cavity size is normal. Wa ll thickness is normal. Systolic function is normal. The estimated ejec tion fraction is 55-60%. Wall motion is normal; there are no reg ional wall motion abnormalities. Doppler parameters are consisten t with abnormal left ventricular relaxation (grade 1 diastolic dysfu nction). 2. Right ventricle: The RV pressure during systo le by Doppler is 29 mm Hg. 3. Aortic valve: The findings are consistent wit h mild stenosis. 4. Mitral valve: There is trivial regurgitation. 5. Tricuspid valve: There is trivial regurgitati on. 6. Pericardium, extracardiac: A trivial pericard ial effusion is identified. Prepared and electronically signed by Domi Peralta MD 11/13/2022 15:45 Electronically Signed by Domi Peralta MD on 0 11/13/22 at 1545 PATIENT NAME: LISA RAWLS [id number] 2022-11-13 08:17:00-00:00 [facility] Cardiothoracic Surgery Consult REPORT#:[id number] REPORT STATUS: Signed DATE:11/13/22 TIME: 816 PATIENT: LISA RAWLS UNIT #: [id number] ROOM/BED: [place] [address] : [birth year] AGE: 67 SEX: F ATTEND: Sahara Richey DO ADM AUTHOR: Lorrie Ledesma Physic * ALL edits or amendments must be made on the [email or web address] document * See Addendum Lorrie Ledesma 11/13/22 0817: History of Present Illness HPI Chief complaint: Chest pains, CAD Requesting Clinician Dr Douglas HPI: This is a 66-year-old female with past medical history of diabetes, hypertension , hyperlipidemia, anxiety, alcohol abuse who was transferred from [facility] after being found to have mu ltivessel coronary artery disease. She was initially found in the middle [place] the str eet intoxicated prior to admission to [facility]. Upon work-up at [facility] she was found to have multivessel coronary artery diseas e. The patient reports she drinks 6-8 beers weekly. She denies any smoking history. Patient is currently resting comfortable , denies chest pains, denies shortness of breath. She is anxious about the procedure. S he wishes to seek a second opinion. CV surgery consulted for evaluation for coronary artery disease. History Additional Medical History: DM, HTN, hyperlipidemia, depression, anxiety, ob esity Additional Surgical History: Cholecystectomy, hysterectomy, back surgery for large herniated disc Alcohol Use Alcohol use (6-8 bears on sundays) Drug Use Denies recreational drugs Smoking status for patients 13 years old or olde r: Former Smoker Date last smoked: 11/10/92 Packs per day: 0.25 Years smoked: 10 Pack years: 2.50 Allergies: Coded Allergies: No Known Allergies (11/12/22) Review of Systems Review of Systems Constitutional: Denies: fever, generalized weakness. Eyes: Denies: itching, diplopia. ENT: Denies: ear ringing, earache. Respiratory: Denies: MENA (dyspnea on exertion), SOB. Cardiovascular: Denies: MENA (dyspnea on exertion), orthopnea. GI: Denies: constipation, diarrhea. Musculoskeletal: Denies: joint pain, joint swelling. Endocrine: Denies: polydipsia, polyuria. Neuro: Reports: headache. Denies: lightheaded. Psych: Reports: agitation, anxiety. All systems rev neg: except as marked Objective Physical Exam VS/I O: Last Documented: Result Date Time Pulse Ox 97 11/13 0551 Pulse 81 11/13 0551 Resp 12 11/13 0551 B/P 134/63 11/13 0545 B/P Mean 90 11/13 0545 24 hour I O ending at 0700: 11/13 0700 11/12 1900 Intake Total Output Total Balance Patient 82.9 kg Weight Weight Bed scale Measurement Method PATIENT WEIGHT: Weight (lb): 182 Weight (oz): 12.21 Weight (kg): 82.900 General appearance: alert, awake, oriented Neck: full range of motion Cardiovascular: BP/pulses equal bilat., regular rate rhythm Respiratory: aerating well, clear to auscultatio n Abdomen: soft, non-tender Genitourinary: no bladder distention Extremities: dry, moves all Musculoskeletal: full range of motion Neuro/GLOVE OPERATOR: alert, oriented X 3 Skin: dry, intact Lymphatics: no lymphadenopathy Diagnosis, Assessment Plan Free Text A P: This is a 66-year-old female with past medical history of diabetes, hypertension , hyperlipidemia, anxiety, alcohol abuse who was transferred from [facility] after being found to have mu ltivessel coronary artery disease. She was initially found in the [facility] of the [facility] e[facility] intoxicated prior to admission to [facility]. Upon work-up at [facility] she was found to have multivessel coronary artery diseas e. The patient reports she drinks 6-8 beers weekly. She denies any smoking history. Patient is currently resting comfortable , denies chest pains, denies shortness of breath. She is anxious about the procedure. S he wishes to seek a second opinion. CV surgery consulted for evaluation for coronary artery disease. Assessment/plan 1. Coronary artery disease 2. Diabetes 3. Hypertension 4. Hyperlipidemia 5. Alcohol abuse Patient was seen and examined by Dr. Nath. Th e patient wishes to seek a second opinion at [facility] where her has been seen by another manager target. Currently the patient is chest pain-free. Restin g comfortable. We will discuss with manager target and case manag ement for transfer. Consultants: cardiology, cardiovascular surgery, critical/campus coordinator Quality: Trauma Gen Surg Advanced Care Plan 65 or Older Discussed with: patient Discussion included: living will, power of attor deja, code status Current Medications Current medication review: I attest that the foregoing medication list in [facility] medical record is true, accurate, and complete to the best of my knowled ge. VTE Prophylaxis - General VTE prophylaxis initiated: yes Tobacco Use/Counseling Tobacco use/counseling: non tobacco user Robert Nath 11/22/22 1159: Attestations Physician Attestation Agree w/findings plan: I have seen and examined Ms. Che. I agree wit h the findings and plan as documented by KELSIE Driver. Briefly, 67-year-old female with severe triple-vessel coronary artery disease. Patient has been transferred to [facility] for surgical evaluation. I had a long discussion with the jack beebe, explained to her the angiogram finding and need for surgical revascul arization. I have discussed with the procedure, risk involved, benefit, alte rnatives, STS risk score, and complications. Patient states that her ivelisse thapa is under treatment for terminal cancer at [facility] and she wants to go to [facility] for her surgery. at 0846 at 1215 Addendum 1: 11/13/22 1145 by Lorrie Ledesma Pheric sic The patient was seen and examined by Dr. Nath . Coronary artery bypass graft surgery was discuss ed with the patient and the patient's and daughter at the bedside. The patient expressed that she did not want to s jax at the [facility] facility. She wishes to transfer to [facility] for further workup for her coronary artery disease. The need for coronary bypass graft surgery was d iscussed with the patient and the patient's family by Dr. Nath. It was expl ained to the patient that we could provide her with high- quality care for her coronary artery bypass surgery at our facility [facility] however the patien t wants to see her 's manager target at [facility]. Attempts were made to reques t a transfer to [facility]. The patient did not want to wait for transfer. Patient s tates she wishes to discharge and will present to [facility] emergency room for further evaluation. It was explained to the patient the risk of hear t attack and even potentially if she left AMA and were to sustain a FL. The patient excepted these risk and wished to di scharge AMA. at 1148 RPT #:[id number] END OF REPORT 2022-11-12 22:58:00-00:00 [facility] ([facility] Hospitalist History Physical REPORT#:[id number] REPORT STATUS: Signed DATE:11/12/22 TIME: 2257 PATIENT: LISA RAWLS UNIT #: [id number] ROOM/BED: [place] [address] : 57 AGE: 66 SEX: F ATTEND: Sahara Richey DO ADM AUTHOR: Ciarar Flowers MD * ALL edits or amendments must be made on the [email or web address] document * See Addendum History of Present Illness HPI Chief complaint: Patient is transferred from [facility] for CABG PCP: PCP: Heri Richey DO HPI: This is 66-year-old female w ith past medical history of DM, HTN, hyperlipidemia, depression, anxiety, obesity, alcohol abuse, who was found to have severe multivessel coronary artery disease at [facility]. She is transferred over here for CABG. CT surgery consulted. Luis tay was admitted in [facility] on 11/09/2022 after she was found in a c ar in middle of street intoxicated, her alcohol level was 350. On initial evaluation her troponin was elevated and abnormal EKG. Cardiac cath done on 11/12/2022 showed severe multivessel coronary artery disease. Patient rep orts chest discomfort on the left side, associated with lightheadedne ss. Also complains of headache. Denies any other complaint. Patient reports she never h ad this kind of chest discomfort. She reports she drinks 6-8 beers wee kly. She quit smoking long time ago. Patient wants to get a second opinion before going for CABG. She is anxious for the procedure. Informant/historian: patient, referring physicia n Hx Obtained From Patient History Past Medical Surgical Hx Additional medical history: DM, HTN, hyperlipidemia, depression, anxiety, ob esity Additional surgical history: Cholecystectomy, hysterectomy, back surgery for large herniated disc Family History Additional family history: Not contributory Social History Alcohol use: Alcohol use (6-8 bears on sundays) Drug use: Denies recreational drugs Smoking status for patients 13 years old or olde r: Former Smoker Medication/Allergy-Vaccine Hx Allergies: Coded Allergies: No Known Allergies (11/12/22) Review of Systems Constitutional: Denies: chills, fever. Respiratory: Denies: non productive cough, productive cough ( sputum), SOB. Cardiovascular: Reports: chest pain. Denies: edema. GI: Denies: abdominal pain, constipation, diarrhea, GERD, nausea, vomiting. : Denies: dysuria. Neuro: Denies: focal weakness, numbness. Psych: Reports: anxiety. OBJECTIVE VS/I O: 24 hour I O ending at 0700: 04 0700 11/12 1900 Intake Total Output Total Balance Patient 82.9 kg Weight Weight Bed scale Measurement Method Patient Weight and BMI Weight (kg): 82.900 BMI: 29.7 Medications: Active Meds + DC'd Last 24 Hrs Ceftriaxone Sodium (ROCEPHIN 1000MG VIAL) 1,000 MG PREOP ONCALL IV (CAN) Sodium Chloride (SODIUM CHLORIDE) 10 ML Atorvastatin Calcium (LIPITOR) 80 MG 2100 PO Aspirin (ASPIRIN) 81 MG DAILY PO Mupirocin (BACTROBAN 2% 22 GM OINTMENT) 1 APPLIC BID NASAL Cefazolin Sodium (KEFZOL OR ANCEF) 1 GM PREOP SOAKING ROOM OPERATOR IV (CKD) Sodium Chloride (SODIUM CHLORIDE) 10 ML Metoprolol Tartrate (LOPRESSOR) 6.25 MG ONCE PO (CAN) Vancomycin HCl (Vancomycin 1,250 mg Inj (B2)) 1, 250 MG PREOP ONCALL IV ( CKD) Sodium Chloride (SODIUM CHLORIDE 0.9%) 250 ML Verapamil HCl (ISOPTIN) 16.6 MG .Q24H ONE IV (CK D) Heparin Sodium (Porcine) (HEPARIN SODIUM) 1,660 UNIT Sodium Bicarbonate (SODIUM BICARBONATE) 0.7 ML Nitroglycerin/Dextrose (NITROGLYCERIN 50MG/D5W 250ML) 8.3 MG Lactated Ringer's (LACTATED RINGERS) 949.5 ML Docusate Sodium (COLACE) 100 MG BID PRN PRN PO Hydrocodone Bitart/Acetaminophen (NORCO 5/325) 1 TAB Q6H PRN PRN PO Hydrocodone Bitart/Acetaminophen (NORCO 10/325) 1 TAB Q4H PRN PRN PO Morphine Sulfate (morphine SULFATE) 4 MG Q4H PRN PRN IV Ondansetron HCl (ZOFRAN) 4 MG Q4H PRN PRN IV Heparin Sodium (HEPARIN 5000 UNITS/ML) 0 ASDIR P RN IV Heparin Sodium (Porcine) (HEPARIN 25,000 UNITS/ 1/2NS 500ML) 500 ML ASDIR IV (CKD) Magnesium Sulfate (MAGNESIUM SULFATE 2GM/SWFI 50 ML) 50 ML ONCE ONE IV ( CKD) Potassium Chloride (KCL 10MEQ/SWFI 50ML) 50 ML Q 1HR IV (CKD) Acetaminophen (TYLENOL) 650 MG Q4H PRN PRN PO Metoprolol Tartrate (LOPRESSOR) 25 MG Q6H PO Alprazolam (XANAX 0.25) 0.5 MG Q8H PRN PRN PO Insulin Human Regular (HumuLIN R) 100 UNIT ASDIR IV (CKD) Sodium Chloride (SODIUM CHLORIDE 0.9%) 99 ML Nicardipine HCl (niCARdipine HCl) 25 MG TITRATE IV (CKD) Sodium Chloride (Sodium Chloride 50ML) 50 ML Thiamine HCl (THIAMINE HCL) 100 MG Q12H IV Sodium Chloride (SODIUM CHLORIDE 0.9%) 50 ML General appearance: alert, awake, oriented Head/Eyes: atraumatic, clear cornea, EOMI, anthony l conjunctiva/sclera, PERRLA Cardiovascular: normal heart sounds, regular rat e rhythm Respiratory: clear to auscultation Abdomen: non-tender, normal bowel sounds, soft, no distention Extremities: moves all, no edema Musculoskeletal: normal inspection Neuro/GLOVE OPERATOR: alert, oriented X 3, CNII-XII intact, normal speech, no motor deficits, no sensory deficits Psychiatry: anxious Results Findings/Data: Laboratory Tests: 11/13 11/12 11/12 11/12 0056 2322 2322 2322 Chemistry Sodium (134 - 147 mEq/L) 135 Potassium (3.4 - 5.0 mEq/L) 3.5 Chloride (100 - 108 mEq/L) 102 Carbon Dioxide (21 - 33 mEq/l) 22 Anion Gap (0 - 20) 14 BUN (7 - 18 mg/dL) 18 Creatinine (0.6 - 1.3 mg/dL) 1.0 Glomerular Filtr Rate (80 - 90) 62.5 L Glucose (70 - 110 mg/dL) 303 H POC Glucose (70 - 110 MG/DL) 256 H Hemoglobin A1c (4.8 - 6.0 %A1C) 10.3 H Calcium (8.0 - 10.5 mg/dL) 9.3 Phosphorus (2.5 - 4.9 MG/DL) 2.5 Magnesium (1.80 - 2.40 mg/dL) 1.52 L Total Bilirubin (0.0 - 1.0 mg/dL) 0.40 AST (15 - 37 IUnit/L) 48 H ALT (30 - 65 IUnit/L) 44 Total Alk Phosphatase (20 - 125 IUnit/L) 132 H Troponin I High Sens (0 - 34 ng/L) 148 *H B-Natriuretic Peptide (0 - 100 PG/ML) 43.0 Total Protein (6.4 - 8.2 g/dL) 7.2 Albumin (3.4 - 5.0 g/dL) 3.70 Triglycerides (40 - 150 mg/dL) 509 H Cholesterol (<200 mg/dL) 231 H LDL Cholesterol Measurd (0 - 100 mg/dL) 124.0 H HDL Cholesterol (40 - 60 MG/DL) 59.1 Cholesterol/HDL Ratio (3.27 - 4.44 RATIO) 3.91 Hematology WBC (4.5 - 11.0 x10 3/uL) 5.1 RBC (3.54 - 5.02 x10 6/uL) 4.18 Hgb (11.0 - 15.0 g/dL) 13.1 Hct (33.0 - 45.0 %) 39.1 MCV (81.0 - 99.0 fL) 93.5 MCH (27.0 - 33.0 pg) 31.3 MCHC (33.0 - 37.0 g/dL) 33.5 RDW (11.5 - 14.5 %) 12.2 Plt Count (150 - 400 x10 3/uL) 175 MPV (7.0 - 9.0 fL) 10.2 H Neut % (Auto) (56.0 - 77.0 %) 58.7 Lymph % (Auto) (14.0 - 32.0 %) 29.6 Newberry % (Auto) (4.8 - 9.0 %) 9.1 H Eos % (Auto) (0.3 - 3.7 %) 1.6 Baso % (Auto) (0.0 - 2.0 %) 0.6 Neut # (Auto) (2.0 - 7.6 x10 3/uL) 2.98 Lymph # (Auto) (1.0 - 3.8 x10 3/uL) 1.50 Newberry # (Auto) (0.1 - 0.8 x10 3/uL) 0.46 Eos # (Auto) (0.0 - 0.2 x10 3/uL) 0.08 Baso # (Auto) (0.0 - 0.2 x10 3/uL) 0.03 Abs Immat Gran (auto) (0.00 - 0.03 x10 3/uL) 0. 02 Add Manual Diff NO Immature Gran % (0.0 - 2.0 %) 0.4 Nucleated RBC % (0 - 0 %) 0.0 Nucleated RBCs # (Man) (0.0 - 0.1 x10 3/uL) 0.0 0 08/03 08/03 2321 2216 Chemistry POC Glucose (70 - 110 MG/DL) 319 H Coagulation INR (0.8 - 1.2) 1.0 PTT (B[place]) (25.0 - 39.5 Seconds) 43.7 H PT Patient/Control Mix (9.3 - 12.9 SECONDS) 11. 5 Laboratory Tests 11/12/22 2322: [Embedded Image Not Available] Diagnosis, Assessment Plan Free Text A P: This is 66-year-old female w ith past medical history of DM, HTN, hyperlipidemia, depression, anxiety, obesity, alcohol abuse, who was found to have severe multivessel coronary artery disease at [facility]. She is transferred over here for CABG. Assessment and plans: Severe multivessel coronary artery disease: LH showed severe multivess el coronary artery disease at [facility] Patient transferred from [facility] fo r CABG Echocardiogram at [facility]: EF >60%, normal wall motion, mild TR 11/12/2022 Preop work-up for CABG Aspirin, statin, metoprolol, heparin drip Telemetry monitoring Troponin, A1c, TSH, lipid panel, echocardiogram Cardiology consult CT surgery consult ICC consult Uncontrolled DM: Patient placed on insulin drip, hypoglycemia pr otocol A1c 10.3, follow-up with TSH Hypertensive urgency: Blood pressure on admission 220/115 as per ICC note documentation Started on metoprolol Cardene drip as needed Alcohol abuse: Patient reports drinking 6-8 beers on Sundays, EtOH was 350 on admission Xanax as needed Thiamine Counseled patient to quit Anxiety: Xanax as needed Med reconciliation once medications are reviewe d and properly charted in the system N.p.o. for possible CABG in the morning On heparin drip, will cover for DVT prophylaxis Famotidine as needed for dyspepsia Labs now and morning labs Full code NOK is patient's Patient does not have advanced directive Consultants: cardiology, cardiovascular surgery, critical/campus coordinator Plan discussed with: patient, nurse Time spent: Time spent on patient care (minutes): 65 Resuscitation discussion: Discussed with: patient Code status: full code Quality: Gen Med Crit Care VTE Prophylaxis VTE prophylaxis initiated: yes Current Medications Current medication review: I attest that the foregoing medication list in t he medical record is true, accurate, and complete to the best of my knowled ge. Advanced Care Plan 65 or Older Discussed with: patient Discussion included: living will, power of attor deja, code status BMI Screening > 25 or < 18.5 Patient's BMI: Current BMI: 29.7 Tobacco Use/Counseling Tobacco use/counseling: non tobacco user Electronically Signed by Ciarra Flowers MD on 3 at 0147 Addendum 1: 11/13/22 0244 by Ciarra Flowers MD Heparin drip DC'd as per ICC. SCD ordered for D VT prophylaxis Electronically Signed by Ciarra Flowers MD on 3 at 0245 RPT #:[id number] END OF REPORT 2022-11-12 22:55:00-00:00 [facility]) Critical Care Consult Note REPORT#:[id number] REPORT STATUS: Signed DATE:11/12/22 TIME: 2254 PATIENT: LISA RAWLS UNIT #: [id number] ROOM/BED: [place] [address] : 56 AGE: 66 SEX: F ATTEND: Sahara Richey DO ADM AUTHOR: Pienda Felton MD * ALL edits or amendments must be made on the [email or web address] document * History of Present Illness HPI Requesting clinician: Dr. Richey Reason for consult: NSTEMI, multivessel disease Chief complaint: Chest pain PCP: PCP: Heri Richey DO HPI: Ms. Rawls is a 66 years old white lady with hist ory of hypertension, hyperlipidemia, obesity s/p gastric sleeve, anxiety, depression, alcohol abuse, admitted to ICU with NSTEMI and multivessel dise ase for evaluation for aortocoronary bypass. Patient was transferred from [facility] in [place]. Patient was admitted to [facility] on 11/09/2022 after she was found in her car in the middle of the street intoxicated (alcohol level was 350) initial evaluation showed elevated troponin and abnormal EKG. Cardiac catheterization was done today which showed severe multivessel d isease. Patient stated that she does not drink alcohol u sually and she does not have withdrawal symptoms. She has been under stress r ecently because both her and eewllo-sm-ryw has terminal cancers o n hospice. She reports on and off chest pain associated wit h stress. She reports no current chest pain, shortness of breath, abdominal pain, nausea, vomiting, focal weakness or numbness, headaches, change in vision. She does have history of donell betes on insulin, takes 2 medications for depression however she does not remember the name. She also takes medications for high blood pressure she does not remember the name. Unfortunately her medication list is not availab le. On arrival patient was tachycardic, blood pressu re 220/115. Review of Systems ROS All systems rev neg: except as marked Objective Physical Exam VS/I O: Patient Weight and BMI Weight (kg): BMI: Medications: Active Meds + DC'd Last 24 Hrs Atorvastatin Calcium (LIPITOR) 80 MG 2100 PO (UN V) Aspirin (ASPIRIN) 81 MG DAILY PO (UNV) Mupirocin (BACTROBAN 2% 22 GM OINTMENT) 1 APPLIC BID NASAL Cefazolin Sodium (KEFZOL OR ANCEF) 1 GM PREOP SOAKING ROOM OPERATOR IV (CKD) Sodium Chloride (SODIUM CHLORIDE) 10 ML Metoprolol Tartrate (LOPRESSOR) 6.25 MG ONCE PO (CKD) Vancomycin HCl (Vancomycin 1,250 mg Inj (B2)) 1, 250 MG PREOP ONCALL IV ( CKD) Sodium Chloride (SODIUM CHLORIDE 0.9%) 250 ML Verapamil HCl (ISOPTIN) 16.6 MG .Q24H ONE IV (CK D) Heparin Sodium (Porcine) (HEPARIN SODIUM) 1,660 UNIT Sodium Bicarbonate (SODIUM BICARBONATE) 0.7 ML Nitroglycerin/Dextrose (NITROGLYCERIN 50MG/D5W 250ML) 8.3 MG Lactated Ringer's (LACTATED RINGERS) 949.5 ML Alprazolam (XANAX 0.25) 0.5 MG Q8H PRN PRN PO (U NV) Insulin Human Regular (HumuLIN R) 100 UNIT ASDIR IV (UNV) Sodium Chloride (SODIUM CHLORIDE 0.9%) 99 ML Metoprolol Tartrate (LOPRESSOR) 25 MG Q6H PO (UN V) Nicardipine HCl (niCARdipine HCl) 25 MG TITRATE IV (PEND) Sodium Chloride (Sodium Chloride 50ML) 50 ML Thiamine HCl (THIAMINE HCL) 100 MG Q12H IV (UNV) Sodium Chloride (SODIUM CHLORIDE 0.9%) 50 ML General appearance: alert, awake, oriented, anxi ous Head/Eyes: atraumatic, normocephalic ENT: moist mucosal membranes, normal dentition Neck: supple/no meningismus, no JVD Cardiovascular: tachycardia, normal capillary re fill, normal heart sounds Respiratory: aerating well, clear to auscultatio n, symmetric expansion Abdomen: soft, non-tender, normal bowel sounds Genitourinary: no bladder distention, no urinary catheter Extremities: moves all, no clubbing, no cyanosis , no edema Musculoskeletal: normal inspection, no muscle sp asm Neuro/GLOVE OPERATOR: alert, oriented X 3, normal speech, n o motor deficits Results Findings/Data: Laboratory Tests 11/13 2215 Chemistry POC Glucose (70 - 110 MG/DL) 319 H Microbiology: 11/12 2233 NASAL: MSSA Surveillance Screen - ORD 11/12 2233 NASAL: MRSA DNA Surveillance Screen - ORD Diagnosis, Assessment Plan Free text DxA P: a 66 years old white lady wi th history of hypertension, hyperlipidemia, obesity s/p gastric sleeve, anxiety, depression, alcohol abuse, admitted to ICU with NSTEMI and multivessel disease for evaluation fo r aortocoronary bypass. Acute coronary syndrome: NSTEMI: Coronary artery disease: Patient had atypical chest pain with elevated tr oponin and abnormal EKG. Cardiac catheterization showed severe multivesse l disease. Patient has been treated medically since admission 11/09/2022. She is currently being evaluated for CABG and work-up in progress. We will continue aspirin, hi gh intensity statin, beta-maritza. We will hold off full dose anticoagulation since patient may go t o surgery tomorrow. Hypertensive urgency: Hypertension: Blood pressure on admission 220/115 mmHg. Patient is also tachycardic, anxious. We will start metoprolol 25 mg every 6 hours p.o . I will start Cardene drip to lower blood pressur e gradually. Diabetes mellitus with hyperglycemia: Blood sugar on admission to [facility] as over 500 mg/dL. Current blood sugar more than 300 mg/dL. I will start insulin drip p rotocol. We will get hemoglobin A1c. Follow Accu-Cheks ev tristan 1 hour Alcohol abuse:? Alcohol withdrawal: Abnormal LFT s: Anxiety: Depression: Patient reports recent increase in alcohol intak e due to stress. Both and gsfduo-cb-hoo in hospice for terminal cancer s. Her alcohol level was 350 on admission. She repo rts no history of withdrawal seizures or withdrawal symptoms. Slightly elevated transaminases and alk phosphat ase. Normal PT/INR. We will repeat PT/INR, LFT, get liver ultrasound . We will start patient on thiamine IV twice daily , Xanax for anxiety. We will consider Ativan if shows withdrawal symptoms. DVT prophylaxis: GI prophylaxis: Nutrition: SCDs for DVT prophylaxis. No need for GI prophylaxis. N.p.o. for now. Goals of care: Full code. is next of kin. Critical care time 55 minutes not including proc edure time. Quality: Gen Med Crit Care VTE Prophylaxis VTE prophylaxis initiated: yes (mechanical comp device) Current Medications Unable to obtain: Unable to obtain an accurate home medica tion list at this time. The patient is in an urgent or emergent medical situation where time is of the essence. To delay treatment would jeopardize the pat ient's health status on the day of the encounter. Advanced Care Plan 65 or Older Discussed with: patient, surrogate decis. maker Discussion included: power of television installer helper, crissy brady (full code) Electronically Signed by Pineda Felton MD on 11/12 at 6261 RPT #:[id number] END OF REPORT
[2022-12-08] MEDS ORDERED: ALBUTEROL 2.5 MG/3 ML NEB SOL ONE (08:58)
[2022-12-08] MEDS ORDERED: LEVALBUTEROL 0.63 MG/3 ML NEB ONE (08:58)
[2022-12-08 09:21] LABS: Absolute Lymphocytes (CBC) 0.7 K/uL (0.7-4.9); Lymphocytes % 6.7 % (15.3-44.8); MCV 88.3 fL (80-100); MPV 8.9 fL (7.6-11.3); Platelets 274 thou/uL (152-406); Protime INR 1.19; RBC Red Blood Cell Count 2.95 M/uL (3.86-4.86)
[2022-12-08 09:30] LABS: Albumin 2.8 g/dL (3.4-5.0); Bilirubin Direct 0.3 mg/dL (0-0.2); Bilirubin Indirect, Calculated 0.4 mg/dL (0.2-0.8); Bilirubin Total 0.7 mg/dL (0.2-1.0); Potassium 3.8 mEq/L (3.5-5.1); Protein, Total 6.7 g/dL (6.4-8.2); Troponin High Sensitivity 29.7 pg/mL (<58.9)
[2022-12-08 09:53] LABS: Specific Gravity 1.017 (1.005-1.030); Urine Bacteria <20 /HPF (<20); Urine Bilirubin NEGATIVE (Negative); Urine Blood 1+ (Negative); Urine Clarity Extremely Turbid (Clear); Urine Color Yellow (Yellow); Urine Glucose NEGATIVE (Negative); Urine Mucus Slight /HPF (None Seen); Urine Protein 2+ (Negative); Urine RBC <5 /HPF (None Seen); Urine Urobilinogen Normal (Normal)
--- NOTE | 2022-12-08 10:07 | RAD REPORT ---
EXAM DESCRIPTION: CT - Head C Spine Cap Wo Con - 12/08/2022 9:46 am CLINICAL HISTORY: Head and neck injury with chest and abdominal pain status post fall TECHNIQUE: Computed axial tomography of head, neck, chest, abdomen and pelvis obtained. IV and oral contrast not requested. Coronal and sagittal reconstruction performed. All CT scans are performed using dose optimization technique as appropriate and may include automated exposure control or mA/KV adjustment according to patient size. COMPARISON: 2012 FINDINGS: An intracranial bleed is not seen. The ventricles are normal in caliber. An extra-axial fluid collection is not noted. Fluid within the sinuses/mastoids is not seen. A cervical fracture is not seen. No dislocation is noted. The evaluation of mediastinum, deloris, vessels, solid organs and bowel are limited secondary to the lac k of contrast administration. A mediastinal hematoma is not noted. Small to moderate bilateral pleural effusions with bibasilar ate lectasis. No pulmonary contusion Gastric band is in place. Esophagus is dilated and fluid-filled The liver,spleen, pancreas, adrenals,kidneys and bladder do not demonstrate an acute traumatic injury Old fractures second and third right left transverse processes of L2. Castro catheter in place IMPRESSION: No acute intracranial abnormality is seen. A cervical fracture is not visualized. If the patient continues to have symptoms to suggest intracran ial/spinal cord pathology MRI be recommended No acute traumatic abnormality involving the chest, abdomen or pelvis Dilated fluid-filled esophagus. The gastric band may be too tight Small to moderate bilateral pleural effusions
--- NOTE | 2022-12-08 10:08 | RAD REPORT ---
EXAM DESCRIPTION: Danita Single View12/08/2022 9:41 am CLINICAL HISTORY: Chest pain COMPARISON: October 2022 FINDINGS: Small to moderate bilateral pleural effusions with bibasilar atelectasis. Heart is mildly enlarged. Postsurgical changes involve the chest. PICC line in place
[2022-12-08] MEDS ORDERED: AZITHROMYCIN 500 MG INJ IVPB ONE (11:43)
[2022-12-08] MEDS ORDERED: FUROSEMIDE 40 MG/4 ML VIAL ONE (11:43)
[2022-12-08] MEDS ORDERED: CEFTRIAXONE 1000 MG/VIAL ONE (11:43)
[2022-12-08] MEDS ORDERED: NA CHLORIDE 0.9% 250 ML ONE (11:43)
[2022-12-08] MEDS ORDERED: NA CHLORIDE 0.9% 50 ML ONE (11:44)
[2022-12-08 11:58] LABS: Arterial Blood Carboxyhemoglob 1.7 % (0-1.5); Blood Gas Oxyhemoglobin 90.6 % (94-97); Blood O2 Saturation 93.5 % (92-98.5)
--- NOTE | 2022-12-08 12:02 | ER ---
Nurse's Notes [facility] Name: Lisa Min Age: 67 yrs Sex: Female : 1955 Arrival Date: 12/08/2022 Time: 08:28 Bed 14 Private MD: Diagnosis: Unspecified combined systolic (congestive) and diastolic (congestive) heart failure;Hypoxemia;Altered mental status, unspecified Presentation: 12/08 08:33 Chief complaint: EMS states: "Toned out for AMS and generalized weakness x 2 weeks mb9 after Bypass surgery. Pt was 85% on RA on arrival. Placed pt on 3 l/min via nasal canal. SPO2 now 94%. BGL 252.". Coronavirus screen: Vaccine status: Patient reports being unvaccinated. Ebola Screen: No symptoms or risks identified at this time. Initial Sepsis Screen: Does the patient meet any 2 criteria? Altered Mental Status. HR > 90 bpm. Yes Does the patient have a suspected source of infection? No. Patient's initial sepsis screen is negative. Risk Assessment: Do you want to hurt yourself or someone else? Patient reports no desire to harm self or others. Onset of symptoms was December 08, 2022. 08:33 Method Of Arrival: EMS: [facility] mb9 08:33 Acuity: TAMMY 2 mb9 Triage Assessment: 08:39 General: Appears uncomfortable, ill, Behavior is cooperative. Pain: Denies pain. Neuro: mb9 Herrmann Agitation-Sedation Scale (RASS): 0 - Alert and Calm Level of Consciousness is awake, confused, Oriented to person. Cardiovascular: Heart tones S1 S2 present Patient's skin is warm and dry. Rhythm is regular. Respiratory: Airway is patent Respiratory effort is even, unlabored, Respiratory pattern is regular, symmetrical. GI: Abdomen is round non-distended, Bowel sounds present X 4 quads. Abd is soft and non tender X 4 quads. : Parent/caregiver report the patient having Recent UTI infection. Derm: Skin is pink, warm \\T\\ dry. skin tear noted to right FA. No active bleeding noted. Musculoskeletal: Range of motion: intact in all extremities, Reports weakness in right arm, left arm, right leg and left leg. Historical: - Allergies: 08:36 No Known Allergies; mb9 - Home Meds: 08:40 aspirin 81 mg Oral tablet,chewable daily [Active]; Bisacodyl Oral [Active]; duloxetine mb9 30 mg oral capsule,delayed release (e.c.) daily [Active]; Lasix 40 mg Oral tablet 2 times per day [Active]; insulin lispro 100 unit/mL subcutaneous Insulin Pen 2 times per day [Active]; methocarbamol 500 mg Oral tablet every 6 hours [Active]; ramelteon 8 mg oral tablet once [Active]; gabapentin 100 mg oral capsule every 8 hours [Active]; rosuvastatin 40 mg oral tablet once [Active]; - PMHx: 08:36 Diabetes - IDDM; Hypertension; mb9 - PSHx: 08:36 Bypass; mb9 - Immunization history:: Adult Immunizations up to date. - Social history:: Smoking status: Patient/guardian denies using tobacco. Screenin:45 [facility] ED Fall Risk Assessment (Adult) History of falling in the last 3 months, mb9 including since admission Yes- fall prone (multiple falls) (3 pts) Confusion or Disorientation Yes (5 pts) Intoxicated or Sedated No (0 pts) Impaired Gait No (0 pts) Mobility Assist Device Used No (0 pt) Altered Elimination No (0 pt) Score/Fall Risk Level 0 - 2 = Low Risk Oriented to surroundings, Maintained a safe environment, Educated pt \\T\\ family on fall prevention, incl call for assistance when getting out of bed. Abuse screen: Denies threats or abuse. Nutritional screening: No deficits noted. Tuberculosis screening: No symptoms or risk factors identified. Assessment: 08:45 Reassessment: see triage assessment. mb9 09:00 Reassessment: Daughter at bedside. mb9 09:15 Reassessment: pt taken to CT via stretcher. mb9 09:45 Reassessment: No changes from previously documented assessment. Patient and/or family mb9 updated on plan of care and expected duration. Pain level reassessed. Patient is alert, oriented x 3, equal unlabored respirations, skin warm/dry/pink. 10:45 Reassessment: No changes from previously documented assessment. Patient and/or family mb9 updated on plan of care and expected duration. Pain level reassessed. Patient is alert, oriented x 3, equal unlabored respirations, skin warm/dry/pink. 11:20 Reassessment: Patient appears in no apparent distress at this time. Patient and/or eh3 family updated on plan of care and expected duration. Pain level reassessed. Patient is alert, oriented x 3, equal unlabored respirations, skin warm/dry/pink. 12:00 Reassessment: Patient appears in no apparent distress at this time. Patient and/or eh3 family updated on plan of care and expected duration. Pain level reassessed. Patient is alert, oriented x 3, equal unlabored respirations, skin warm/dry/pink. 13:00 Reassessment: Patient appears in no apparent distress at this time. Patient and/or eh3 family updated on plan of care and expected duration. Pain level reassessed. Patient is alert, oriented x 3, equal unlabored respirations, skin warm/dry/pink. 14:00 Reassessment: Patient appears in no apparent distress at this time. Patient and/or eh3 family updated on plan of care and expected duration. Pain level reassessed. Patient is alert, oriented x 3, equal unlabored respirations, skin warm/dry/pink. 15:00 Reassessment: Patient appears in no apparent distress at this time. Patient and/or eh3 family updated on plan of care and expected duration. Pain level reassessed. Patient is alert, oriented x 3, equal unlabored respirations, skin warm/dry/pink. 16:00 Reassessment: Patient appears in no apparent distress at this time. Patient and/or eh3 family updated on plan of care and expected duration. Pain level reassessed. Patient is alert, oriented x 3, equal unlabored respirations, skin warm/dry/pink. Vital Signs: 08:33 BP 113 / 94; Pulse 93; Resp 20; Temp 97.5; Pulse Ox 94% on NC; Weight 93.44 kg; Height mb9 5 ft. 6 in. ; Pain 0/10; 08:33 Pulse Ox 85% on R/A; mb9 09:47 BP 147 / 57; Pulse 87; Resp 19; Pulse Ox 95% on 3 lpm NC; mb9 10:42 BP 136 / 64; Pulse 86; Resp 20; Pulse Ox 99% on 3 lpm NC; mb9 11:20 BP 116 / 68; Pulse 85; Resp 17; Pulse Ox 97% on 3 lpm NC; eh3 11:50 BP 130 / 65; Pulse 85; Resp 16; Pulse Ox 98% 3 lpm ; eh3 12:30 BP 132 / 64; Pulse 85; Resp 18; Pulse Ox 99% on 3 lpm NC; eh3 13:00 BP 134 / 83; Pulse 84; Resp 17; Pulse Ox 97% on 2 lpm NC; eh3 14:00 BP 133 / 72; Pulse 82; Resp 18; Pulse Ox 98% on 2 lpm NC; eh3 15:00 BP 119 / 50; Pulse 83; Resp 18; Pulse Ox 95% on R/A; eh3 16:00 BP 139 / 70; Pulse 84; Resp 20; Pulse Ox 92% on R/A; eh3 08:33 Body Mass Index 33.25 (93.44 kg, 167.64 cm) mb9 08:33 Pain Scale: Adult mb9 ED Course: 08:33 Patient arrived in ED. mb9 08:33 Cliff Grant PA is PHCP. cp 08:36 Triage completed. mb9 08:36 Arm band placed on. mb9 08:36 Placed in gown. Bed in low position. Call light in reach. Side rails up X 1. Client mb9 placed on continuous cardiac and pulse oximetry monitoring. NIBP monitoring applied. business practices officer on. 08:47 Rosa Baird, RN is Primary Nurse. mb9 08:48 Radiology exam delayed due to IV insertion attempt and/or patient not having ls3 appropriate IV at this time. patient receiving breathing treatment at this time. 08:48 IV is patent, is intact, with fluids infusing freely, with good blood return, PICC mb9 right upper arm. 08:55 EKG done, by ED staff, reviewed by Cliff IGLESIAS. mb9 08:55 Inserted saline lock: 24 gauge in left forearm, using aseptic technique. Blood mb9 collected. 08:56 Ross Felix DO is Attending Physician. cp 09:10 Castro cath inserted, using sterile technique, 16 Fr., by sc, balloon inflated, to mb9 gravity drainage, urine specimen collected. returned cloudy urine. Patient tolerated well. 09:36 No provider procedures requiring assistance completed. mb9 09:39 Urinalysis W/Microscopic Sent. ds4 09:39 Blood Culture Adult (2) Sent. ds4 09:39 Basic Metabolic Panel Sent. ds4 09:39 LFT's Sent. ds4 09:39 Magnesium Sent. ds4 09:39 NT PRO-BNP Sent. ds4 09:39 Troponin HS Sent. ds4 09:43 CT Traumagram (Head C Spine CAP wo con) In Process Unspecified. EDMS 09:43 XRAY Chest (1 view) In Process Unspecified. EDMS 11:20 Report given to DANICA Schneider. mb9 11:20 Provided Education on: Use of call jewell. Door closed. Noise minimized. Lights dimmed. eh3 Warm blanket given. 12:08 initiated transfer to [facility]. bd 12:56 pt denied at [facility] due to no beds at this time,per Jocy. bd 13:58 initiated transfer to [facility], pt accepted in transfer by Dr villegas, bd admin approval given by ema Mcbride,pt going to ER. 16:00 Oxygen administration via nasal cannula \\T\\ 2L/min. eh3 16:09 Patient transferred, IV remains in place. eh3 Administered Medications: 08:53 Drug: DuoNeb Nebulize (2.5 mg - 0.5 mg) 3 ml Route: Nebulizer; mb9 09:12 Follow up: Response: No adverse reaction mb9 11:40 Drug: Furosemide IVP 40 mg Route: IVP; Site: left forearm; eh3 13:00 Follow up: Response: No adverse reaction eh3 11:45 Drug: Rocephin IV 1 grams Route: IV; Rate: calculated rate; Site: left forearm; eh3 12:00 Follow up: Response: No adverse reaction; IV Status: Completed infusion; IV Intake: [id number] 11:50 Drug: Zithromax IVPB 500 mg Route: IVPB; Infused Over: 1 hrs; Site: left forearm; eh3 13:00 Follow up: Response: No adverse reaction; IV Status: Completed infusion; IV Intake: eh3 250ml 16:03 Drug: fentaNYL (PF) IVP 25 mcg Route: IVP; Site: left forearm; 3 Medication: 09:36 VIS not applicable for this client. mb9 Intake: 12:00 IV: 50ml; Total: 50ml. eh3 13:00 IV: 250ml; Total: 300ml. eh3 Outcome: 12:02 ER care complete, transfer ordered by MD. truong 16:09 Transferred by ground EMS to [facility], Transfer form completed. eh3 16:09 Condition: stable 16:09 Instructed on the need for transfer. 16:09 Patient left the ED. 3 Signatures: Dispatcher [employer] EDViri Arcos Donovan ds4 Cliff Grant PA PA cp Siler, Lynzie ls3 Jennie Fernandez RN RN 3 Rosa Baird RN RN mb9 Corrections: (The following items were deleted from the chart) 11:26 08:39 Derm: Skin is pink, warm \\T\\ dry. mb9 mb9 11:54 11:20 BP 116 / 68; Pulse 85bpm; Resp 17bpm; Pulse Ox 97% RA; [facility] 16:08 12:30 BP 132 / 64; Pulse 85bpm; Resp 18bpm; Pulse Ox 99% RA; [facility] 16:08 13:00 BP 134 / 83; Pulse 84bpm; Resp 17bpm; Pulse Ox 97% RA; 3 3
--- NOTE | 2022-12-08 12:02 | EDPHYS ---
Physician Documentation [facility] Name: Lisa Min Age: 67 yrs Sex: Female : 1955 Arrival Date: 12/08/2022 Time: 08:28 Bed 14 Private MD: ED Physician Ross Felix HPI: 12/08 08:45 This 67 yrs old Female presents to ER via EMS with complaints of Altered cp Mental Status. 08:45 The patient presents with decreased mental status. cp 08:45 Onset: The symptoms/episode began/occurred yesterday. Possible causes: sepsis, the cp patient has a known UTI history. Associated signs and symptoms: Pertinent negatives: abdominal pain, chest pain, diarrhea, vomiting, fever. Patient's baseline: Neuro: alert and fully oriented, Motor: no deficits, Ambulation: walks without assistance, Speech: normal. Daughter reports recent double bypass surgery performed at [facility] 2 weeks ago, by DR Roman Gardner Jr, with discharge this past Wednesday. Patient with PICC line to receive antibiotics for UTI. Historical: - Allergies: 08:36 No Known Allergies; mb9 - Home Meds: 08:40 aspirin 81 mg Oral tablet,chewable daily [Active]; Bisacodyl Oral [Active]; duloxetine mb9 30 mg oral capsule,delayed release (e.c.) daily [Active]; Lasix 40 mg Oral tablet 2 times per day [Active]; insulin lispro 100 unit/mL subcutaneous Insulin Pen 2 times per day [Active]; methocarbamol 500 mg Oral tablet every 6 hours [Active]; ramelteon 8 mg oral tablet once [Active]; gabapentin 100 mg oral capsule every 8 hours [Active]; rosuvastatin 40 mg oral tablet once [Active]; - PMHx: 08:36 Diabetes - IDDM; Hypertension; mb9 - PSHx: 08:36 Bypass; mb9 - Immunization history:: Adult Immunizations up to date. - Social history:: Smoking status: Patient/guardian denies using tobacco. ROS: 08:50 Constitutional: Negative for fever, poor PO intake. cp 08:50 Eyes: Negative for injury, pain, redness, and discharge. cp 08:50 ENT: Negative for drainage from ear(s), ear pain, sore throat, difficulty swallowing, difficulty handling secretions. 08:50 Cardiovascular: Negative for chest pain. 08:50 Respiratory: Negative for cough, wheezing. 08:50 Abdomen/GI: Negative for abdominal pain, vomiting, diarrhea, constipation. 08:50 Back: Negative for pain at rest, pain with movement. 08:50 Neuro: Positive for altered mental status, weakness. 08:50 All other systems are negative. Exam: 08:45 ECG was reviewed by the Attending Physician. cp 08:53 Constitutional: The patient appears alert, awake, non-diaphoretic, non-toxic, well cp developed, well nourished. 08:53 Head/Face: Normocephalic, atraumatic. cp 08:53 Eyes: Periorbital structures: appear normal, Pupils: equal, round, and reactive to light and accomodation, Conjunctiva: normal, no exudate, no injection, Sclera: no appreciated abnormality, Lids and lashes: appear normal, bilaterally. 08:53 ENT: External ear(s): are unremarkable, Nose: is normal, Mouth: Lips: dry, Oral mucosa: pink and intact, moist, Posterior pharynx: is normal, airway is patent, no erythema, no exudate. 08:53 Neck: ROM/movement: is normal, is supple, without pain, no range of motions limitations, no meningismus, no nuchal rigidity. 08:53 Chest/axilla: Inspection: normal. 08:53 Cardiovascular: Rate: normal, Rhythm: regular, JVD: is not appreciated. 08:53 Respiratory: the patient does not display signs of respiratory distress, Respirations: labored breathing, that is mild, shallow respirations, that is mild, Breath sounds: decreased breath sounds, that are mild, throughout, stridor, is not appreciated, wheezing: is not appreciated. 08:53 Abdomen/GI: Inspection: abdomen appears normal, Palpation: abdomen is soft and non-tender, in all quadrants. 08:53 Back: CVA tenderness, is absent. 08:53 Skin: cellulitis, is not appreciated, no rash present. 08:53 Neuro: Orientation: to person, Mentation: able to follow commands, slow to respond, Cerebellar function: Romberg testing is negative, Motor: moves all fours, general weakness with no focal deficits. Vital Signs: 08:33 BP 113 / 94; Pulse 93; Resp 20; Temp 97.5; Pulse Ox 94% on NC; Weight 93.44 kg; Height mb9 5 ft. 6 in. ; Pain 0/10; 08:33 Pulse Ox 85% on R/A; mb9 09:47 BP 147 / 57; Pulse 87; Resp 19; Pulse Ox 95% on 3 lpm NC; mb9 10:42 BP 136 / 64; Pulse 86; Resp 20; Pulse Ox 99% on 3 lpm NC; mb9 11:20 BP 116 / 68; Pulse 85; Resp 17; Pulse Ox 97% on 3 lpm NC; eh3 11:50 BP 130 / 65; Pulse 85; Resp 16; Pulse Ox 98% 3 lpm ; eh3 12:30 BP 132 / 64; Pulse 85; Resp 18; Pulse Ox 99% on 3 lpm NC; eh3 13:00 BP 134 / 83; Pulse 84; Resp 17; Pulse Ox 97% on 2 lpm NC; eh3 14:00 BP 133 / 72; Pulse 82; Resp 18; Pulse Ox 98% on 2 lpm NC; eh3 15:00 BP 119 / 50; Pulse 83; Resp 18; Pulse Ox 95% on R/A; eh3 16:00 BP 139 / 70; Pulse 84; Resp 20; Pulse Ox 92% on R/A; eh3 08:33 Body Mass Index 33.25 (93.44 kg, 167.64 cm) mb9 08:33 Pain Scale: Adult mb9 MDM: 08:39 Patient medically screened. cp 09:00 Differential Diagnosis: CVA, electrolyte abnormality, hypoglycemia, intracranial bleed, cp overdose, pneumonia, seizure, sepsis, UTI, volume depletion, respiratory failure. 12:45 Data reviewed: vital signs, nurses notes, lab test result(s), EKG, radiologic studies, cp CT scan, plain films, I have discussed the patient's presentation/case with the attending Emergency Department Physician; and as a result, I will transfer patient. 12:45 ED course: VSS. Spoke with Joan \T\Anglican who reports hospital is at capacity and cp unable to facilitate transfer. 13:55 Management of patient was discussed with the following: DR Scooby Beatty \T\[facility], will accept patient as transfer to medical ICU. 12/08 08:41 Order name: Basic Metabolic Panel; Complete Time: 11:22 cp 12/08 11:23 Interpretation: Normal except: NA 133; GLUC 258; BUN 58; CRE 2.00; GFR 27. cp 12/08 08:41 Order name: CBC with Diff; Complete Time: 09:33 cp 12/08 09:33 Interpretation: Normal except: RBC 2.95; HGB 8.8; HCT 26.0; RDW 15.5; DAMARIS% 81.2; LYM% cp 6.7; EOSINOPHIL % 5.3; NEUT A 8.4. 12/08 08:41 Order name: LFT's; Complete Time: 11:22 cp 12/08 11:23 Interpretation: Normal except: AST 66; ALK 166; BILID 0.3; ALB 2.8; GLOB 3.9; A/G 0.7. 12/08 08:41 Order name: Magnesium; Complete Time: 11:22 cp 12/08 08:41 Order name: NT PRO-BNP; Complete Time: 11:22 12/08 11:23 Interpretation: Reviewed. 12/08 08:41 Order name: PT-INR; Complete Time: 09:33 cp 12/08 08:41 Order name: Troponin HS; Complete Time: 11:22 cp 12/08 08:41 Order name: Blood Culture Adult (2) cp 12/08 08:41 Order name: Lactate w/ 2H reflex if indic.; Complete Time: 09:33 cp 12/08 09:09 Order name: Glucose, Ancillary Testing; Complete Time: 09:33 EDMS 12/08 09:33 Interpretation: Abnormal: GLUC,ANCIL 281. 12/08 09:27 Order name: Urinalysis W/Microscopic; Complete Time: 11:22 12/08 11:24 Interpretation: Normal except: UCLA Extremely Turbid; UKET TRACE; UBLD 1+; UPROT 2+. cp 12/08 11:26 Order name: ABG; Complete Time: 12:39 cp 12/08 11:29 Order name: COVID-19 SARS RT PCR; Complete Time: 12:39 cp 12/08 11:29 Order name: Influenza Screen (a \T\ B); Complete Time: 12:39 cp 12/08 14:12 Order name: Glucose, Ancillary Testing EDMS 12/08 08:41 Order name: XRAY Chest (1 view); Complete Time: 11:22 cp 12/08 08:41 Order name: CT Traumagram (Head C Spine CAP wo con); Complete Time: 11:22 cp 12/08 08:41 Order name: EKG; Complete Time: 08:42 cp 12/08 08:41 Order name: Cardiac monitoring; Complete Time: 08:45 cp 12/08 08:41 Order name: EKG - Nurse/Tech; Complete Time: 08:45 cp 12/08 08:41 Order name: IV Saline Lock; Complete Time: 09:12 cp 12/08 08:41 Order name: Labs collected and sent; Complete Time: 08:45 cp 12/08 08:41 Order name: O2 Per Protocol; Complete Time: 08:45 cp 12/08 08:41 Order name: O2 Sat Monitoring; Complete Time: 08:45 cp 12/08 08:41 Order name: Castro; Complete Time: 09:12 cp 12/08 08:41 Order name: Accucheck Blood Glucose; Complete Time: 08:57 cp EC:45 Rate is 91 beats/min. Rhythm is regular. HI interval is normal. QRS interval is normal. cp QT interval is prolonged at 454 msec. T waves are Inverted in leads II, aVF, V2, V3. Interpreted by me. Reviewed by me. Administered Medications: 08:53 Drug: DuoNeb Nebulize (2.5 mg - 0.5 mg) 3 ml Route: Nebulizer; [facility] 09:12 Follow up: Response: No adverse reaction [facility] 11:40 Drug: Furosemide IVP 40 mg Route: IVP; Site: left forearm; 3 13:00 Follow up: Response: No adverse reaction [facility] 11:45 Drug: Rocephin IV 1 grams Route: IV; Rate: calculated rate; Site: left forearm; 3 12:00 Follow up: Response: No adverse reaction; IV Status: Completed infusion; IV Intake: [id number] 11:50 Drug: Zithromax IVPB 500 mg Route: IVPB; Infused Over: 1 hrs; Site: left forearm; 3 13:00 Follow up: Response: No adverse reaction; IV Status: Completed infusion; IV Intake: eh3 250ml 16:03 Drug: fentaNYL (PF) IVP 25 mcg Route: IVP; Site: left forearm; [facility] Disposition: 11:34 Co-signature as Attending Physician, Ross Felix DO I was immediately available on-site ms3 in the Emergency Department for consultation in the care of the patient. Disposition Summary: 12/08/22 12:02 Transfer Ordered Reason: Higher level of care cp Condition: Stable cp Problem: new cp Symptoms: have improved cp Transfer Location: [facility](12/08/22 14:11) cp Accepting Physician: DR Scooby Beatty(12/08/22 16:09) [facility] Diagnosis - Unspecified combined systolic (congestive) and diastolic (congestive) heart failure cp - Hypoxemia cp - Altered mental status, unspecified cp Forms: - Medication Reconciliation Form cp - SBAR form cp Signatures: Dispatcher [employer] EDMS Cliff Grant PA PA cp Sims, Marcus, DO DO ms3 Jennie Fernandez RN RN 3 Rosa Baird RN RN mb9 Corrections: (The following items were deleted from the chart) 14:11 12:02 Doctor cp cp 14:11 12:02 [facility] cp 16:09 14:11 DR Scooby Beatty [facility] 12/09 15:07 12/08 08:45 Daughter reports recent double bypass surgery performed at [facility] 2 weeks ago with discharge this past Wednesday. Patient with PICC line to receive antibiotics for UTI. cp
[2022-12-08] MEDS ORDERED: FENTANYL CITR 100 MCG/2 ML ONE (16:10)
--- NOTE | 2022-12-08 16:26 | EKG ---
Test Date: 2022-12-08 Test Time: 08:39:25 Orthoptist: MATHIEU MEASUREMENT RESULTS: Intervals: Rate: 91 OH: 156 QRSD: 86 QT: 454 QTc: 558 Draper: P: 51 OH: 156 QRS: 50 T: 56 INTERPRETIVE STATEMENTS: Normal sinus rhythm Nonspecific T wave abnormality Prolonged QT Abnormal ECG Compared to ECG 11/10/2022 08:17:44 T-wave abnormality now present Prolonged QT interval now present Electronically Signed On 12-08-22 16:25:11 CDT by Leo Douglas
[2022-12-08 16:27] VITALS: TEMP 97.5
[2022-12-08 16:41] VITALS: BP 139/70; O2SAT 92
== END 2022-12-08 16:09 | disposition short-term general hospital (02) ==
LOC: ER 08:28
DX: R41.82 Altered mental status, unspecified (principal); I50.40 Unspecified combined systolic (congestive) and diastolic (congestive) heart failure; R09.02 Hypoxemia; E11.9 Type 2 diabetes mellitus without complications; I10 Essential (primary) hypertension; Z95.1 Presence of aortocoronary bypass graft; Z20.822 Contact with and (suspected) exposure to COVID-19; Z79.82 Long term (current) use of aspirin; Z79.4 Long term (current) use of insulin
CPT/HCPCS: 93005; 87040 ×2; 85025; 81001; 80048; 36415; 83735; 85610; 82947 ×2; 80076; 83605; 84484; 83880; 87635; 87804 ×2; 70450; 71250; 72125; 71045; 82805; 36600; J1940; J7613; J3010; J7614; J7050; J0696

== ENCOUNTER 2024-01-20 17:09 | Inpatient (IN) | payer OTHER ==
--- NOTE | 2024-01-20 18:15 | RAD REPORT ---
EXAMINATION: ONE VIEW CHEST XR CLINICAL INDICATION: Female, 68 years old.Cough;SOB TECHNIQUE: 1 View, AP supine, X-ray of the chest was performed. [id number]. COMPARISON: 12/08/2022 FINDINGS: Lungs and pleura: Clear lungs. No effusion. Heart and mediastinum: Normal heart size. Unremarkable mediastinal contours. Osseous structures: No acute abnormality. Sternotomy. Tubes/lines: None Other: None. IMPRESSION: No acute intrathoracic abnormality.
[2024-01-20 18:31] LABS: Absolute Eosinophils 0.1 K/uL (0-0.5); Absolute Monocytes 0.5 K/uL (0.1-1.3); Absolute Neutrophil 8.3 K/uL (1.8-8.0); Basophils % 0.4 % (0-1.3); Eosinophils % 1.5 % (0-4.4); Hematocrit 34.1 % (36.0-45.0); Hemoglobin 11.7 g/dL (12.0-15.0); MCH 34.1 pg (27.0-35.0); MCHC 34.4 g/dL (32.0-36.0); MCV 99.2 fL (80-100); MPV 8.8 fL (7.6-11.3); Monocytes % 5.4 % (3.3-12.3); Neutrophils % 82.7 % (41.7-73.7); Nucleated Red Blood Cells % 0.1 % (0-0); Platelets 192 thou/uL (152-406); RBC Red Blood Cell Count 3.44 M/uL (3.86-4.86)
[2024-01-20] MEDS ORDERED: MORPHINE 2 MG/ML SYR ONE (18:33)
[2024-01-20 18:35] LABS: PT Prothrombin Time 11.5 SECONDS (9.4-12.5); PTT, Activated Partial Thromb 41.1 SECONDS (24.3-36.9); Protime INR 1.03
[2024-01-20 18:39] LABS: Albumin 3.1 g/dL (3.4-5.0); Albumin/Globulin Ratio 0.7 (1.1-1.8); Anion Gap 13.1 mEq/L (5.0-15.0); Bilirubin Total 0.5 mg/dL (0.2-1.0); Globulin 4.2 g/dL (2.3-3.5); Potassium 4.1 mEq/L (3.5-5.1); Protein, Total 7.3 g/dL (6.4-8.2); Troponin High Sensitivity 9.2 pg/mL (<58.9)
[2024-01-20 18:42] LABS: SARS-CoV-2 Antigen CONTROL BLUE LINE VIS/BG OK; SARS-CoV-2 Antigen Rapid Res Negative (Negative)
[2024-01-20] MEDS ORDERED: INSULIN REGULAR (HUMAN) 100 UNIT/ML ONE (19:19)
[2024-01-20 19:43] LABS: Specific Gravity 1.024 (1.005-1.030); Urine Bacteria Loaded /HPF (<20); Urine Bilirubin NEGATIVE (Negative); Urine Blood 1+ (Negative); Urine Clarity Extremely Turbid (Clear); Urine Color Yellow (Yellow); Urine Culture Reflex Order NOT NEEDED; Urine Glucose 3+ (Negative); Urine Ketones 1+ (Negative); Urine Microscopic Reflex YN ORDER UMIC; Urine Mucus Slight /HPF (None Seen); Urine Nitrite NEGATIVE (Negative); Urine Protein 3+ (Negative); Urine RBC <5 /HPF (None Seen); Urine Urobilinogen Normal (Normal)
--- NOTE | 2024-01-20 19:56 | RAD REPORT ---
EXAMINATION: CTA CHEST PE CLINICAL INDICATION: Female, 68 years old. Cough;SOB TECHNIQUE: This examination was performed according to an angiographic protocol with 3D post-processi ng. This involves 3D reconstructions, MIPs, volume rendered images and/or shaded surface rendering. One or more of the following dose reduction techniques were used: Automated exposure control, adjustm ent of the mA and/or kV according to patient size, and/or iterative reconstruction. Unless otherwise specified, incidental findings do not require dedicated imaging follow-up. [id number]. COMPARISON: 12/08/2022 FINDINGS: LOWER NECK: Visualized thyroid gland and soft tissues are normal. LUNGS AND AIRWAYS: Subtle groundglass opacities present at the anterior aspect of the right upper lob e and at both lung bases.. PLEURA: No pleural effusion. No pneumothorax. Hemidiaphragms are normally positioned. MEDIASTINUM AND LYMPH NODES: No mediastinal mass or fluid collection. Normal size mediastinal, hilar, and axillary lymph nodes. Thickened distal esophagus with fluid in the midesophagus. THORACIC AORTA: Normal caliber and configuration. PULMONARY ARTERIES: No evidence of pulmonary embolism. HEART: Normal heart size. No pericardial effusion. Multivessel coronary disease. OSSEOUS STRUCTURES AND CHEST WALL: Intact. Sternotomy. UPPER ABDOMEN: Intrahepatic biliary duct dilatation. Gastric banding present. IMPRESSION: 1. Negative for pulmonary embolism. Subtle scattered groundglass opacities, eccentric to the right, c ould be secondary to pneumonitis as a result of aspiration. Early pneumonia also within the differential. The patient has had a prior gastric banding. The esophagus is distended with fluid whic h could contributed to aspiration in the appropriate clinical setting. 2. Mild nonspecific intrahepatic biliary duct dilatation. If the patient has had a prior cholecystect emily, this could be related. Correlate with LFTs. If abnormal, suggest dedicated imaging of the abdomen.
[2024-01-20] MEDS ORDERED: NA CHLORIDE 0.9% 1,000 ML ONE (20:31)
[2024-01-20] MEDS ORDERED: Levofloxacin 750mg IV 750 MG/150 ML BAG IV ONE (20:31)
[2024-01-20] MEDS ORDERED: HYDROCODONE/CHLORPHEN 5 ML/OSYR ONE (21:12)
[2024-01-20] MEDS ORDERED: ONDANSETRON 4 MG/2 ML VIAL IV PRN (21:19)
[2024-01-20] MEDS ORDERED: LEVALBUTEROL 1.25 MG/3 ML NEB ONE (21:27)
--- NOTE | 2024-01-20 21:28 | P.HP ---
Certification for Inpatient Patient admitted to: Inpatient With expected LOS: >2 Midnights Practitioner: I am a practitioner with admitting privileges, knowledge of patient current condition, hospital course, and medical plan of care. Services: Services provided to patient in accordance with Admission requirements found in Title 42 Section 412.3 of the Code of Federal Regulations Patient History Date of Service: 01/20/24 Reason for admission: pna, failed OP treatment History of Present Illness: Patient is a 68 year old female who is being admitted for CAP that did not respond to OP TX. She has been experiencing cough and shortness of breath for jack past 2 weeks. She received treatment with ... CT chest did not show pulmonary embolism but was suggestive of early PNA vs pneumonitis. Patient's UA is abnormal, with many bacteria. Patient has a history of hypertension, diabetes mellitus and coronary disease status post CABG in November 2022. Allergies No Known Allergies Allergy (Verified 04/30/15 21:58) Home Medications: Duloxetine HCl 60 mg PO DAILY 11/09/22 Gabapentin 300 mg PO TID 11/09/22 Losartan Potassium [Cozaar] 25 mg PO DAILY 11/09/22 Quetiapine Fumarate [Seroquel] 50 mg PO BEDTIME 11/09/22 Rosuvastatin Calcium 5 mg PO DAILY 11/09/22 - Past Medical/Surgical History Diabetic: Yes -: HTN -: DM -: High Lipids -: Anxiety -: Hysterectomy -: Cholesectomy -: Back surgery -: Tummy tuck -: Gastric Banding - Family History Father -: Heart disease, Diabetes Notes: emphysema Mother -: Hypertension, Cancer Notes: pancreatic cancer - Social History Alcohol use: Yes CD- Drugs: No Caffeine use: Yes Physical Examination - Physical Exam General: In no apparent distress HEENT: Atraumatic, Normocephalic Cardiovascular: No edema, Normal pulses, Regular rate/rhythm, Normal S1 S2, Other (sternotomy scar) Neurological: Normal speech - Studies Laboratory Data (last 24 hrs) 01/20/24 01/20/24 01/20/24 18:01 18:01 18:01 WBC 10.10 Hgb 11.7 L Hct 34.1 L Plt Count 192 PT 11.5 INR 1.03 APTT 41.1 H Sodium 135 L Potassium 4.1 BUN 34 H Creatinine 1.25 H Glucose 395 H Total Bilirubin 0.5 AST 27 ALT 55 Alkaline Phosphatase 162 H Microbiology Data (last 24 hrs): 01/20/24 17:52 Nasopharnyx Influenza Type A Antigen Screen - Final 01/20/24 17:52 Nasopharnyx Influenza Type B Antigen Screen - Final Assessment and Plan - Problems (Diagnosis) (1) Pneumonia Current Visit: Yes Status: Acute (2) Diabetes Onset Date: 08/05/17 Current Visit: No Status: Acute Qualifiers: (3) HTN (hypertension) Onset Date: 08/05/17 Current Visit: No Status: Acute (4) UTI (urinary tract infection) Onset Date: 08/05/17 Current Visit: No Status: Resolved Qualifiers: - Plan Assessment This is a 68-year-old female who is being admitted for chlamydia acquired pneumonia did not respond to outpatient therapy. Patient does not meet criteria for sepsis. CT chest concerning for early pneumonia versus pneumonitis. Community-acquired pneumonia UTI Hypertension CHARU HTN DM CAD S/P CABG Plan: Blood cultures have been sent by ER Respiratory cultures sent Will continue patient on ceftriaxone and azithromycin IV fluid Resume home meds upon reconciliation Patient is full code - Advance Directives Does patient have a Living Will: No Does patient have a Durable POA for Healthcare: No
--- NOTE | 2024-01-20 21:53 | EDPHYS ---
Physician Documentation [facility] Name: Lisa Min Age: 68 yrs Sex: Female : 1955 Arrival Date: 01/20/2024 Time: 17:09 Bed 3 Private MD: ED Physician Hiram Main HPI: 01/19 17:40 This 68 yrs old Female presents to ER via Ambulatory with complaints of Cough, cp Congestion. 17:40 The patient or guardian reports cough, difficulty breathing. cp 17:40 Onset: The symptoms/episode began/occurred 2 week(s) ago. Associated signs and cp symptoms: Pertinent negatives: chest pain, fever, vomiting. Severity of symptoms: in the emergency department the symptoms are unchanged despite treatment by PCP with prescribed antibiotic. Patient referred to ED for evaluation. Historical: - Allergies: 17:19 No Known Allergies; ko1 - PMHx: 17:19 Diabetes - IDDM; Hypertension; Coronary atherosclerosis; ko1 - PSHx: 17:19 bypass; ko1 - Immunization history:: Adult Immunizations up to date. - Infectious Disease History:: Denies. - Social history:: Smoking status: Patient denies any tobacco usage or history of. ROS: 17:45 Constitutional: Negative for body aches, chills, fever, poor PO intake, cp 17:45 Eyes: Negative for injury, pain, redness, and discharge, cp 17:45 ENT: Negative for drainage from ear(s), ear pain, sore throat, difficulty swallowing, difficulty handling secretions, 17:45 Cardiovascular: Negative for chest pain, palpitations, 17:45 Respiratory: Positive for cough, shortness of breath, Negative for hemoptysis, 17:45 Abdomen/GI: Negative for abdominal pain, vomiting, diarrhea, constipation, 17:45 : Negative for urinary symptoms, 17:45 Neuro: Negative for altered mental status, dizziness, headache, numbness, syncope, weakness, 17:45 All other systems are negative, Exam: 17:50 Constitutional: The patient appears in no acute distress, alert, awake, cp non-diaphoretic, non-toxic, well developed, well nourished, uncomfortable, 17:50 Head/Face: Normocephalic, atraumatic. cp 17:50 Eyes: Periorbital structures: appear normal, Conjunctiva: normal, no exudate, no injection, Sclera: no appreciated abnormality, Lids and lashes: appear normal, bilaterally, 17:50 ENT: External ear(s): are unremarkable, Ear canal(s): are normal, clear, TM's: dullness, bilaterally, Nose: is normal, Mouth: Lips: moist, Oral mucosa: pink and intact, moist, Posterior pharynx: Airway: no evidence of obstruction, patent, erythema, is not appreciated, exudate, is not appreciated, 17:50 Neck: ROM/movement: is normal, is supple, no meningismus, no nuchal rigidity, Lymph nodes: no appreciated lymphadenopathy, 17:50 Chest/axilla: Inspection: normal, 17:50 Cardiovascular: Rate: tachycardic, Rhythm: regular, Edema: is not appreciated, JVD: is not appreciated, 17:50 Respiratory: the patient does not display signs of respiratory distress, Respirations: labored breathing, that is mild, intercostal retractions, are absent, Breath sounds: bronchial sounds, that are mild, are heard diffusely, stridor, is not appreciated, wheezing: is not appreciated, 17:50 Abdomen/GI: Inspection: abdomen appears normal, Palpation: abdomen is soft and non-tender, in all quadrants, 17:50 Back: pain, is absent, ROM is normal, 17:50 Neuro: Orientation: to person, place \T\ time. Mentation: is normal, Motor: moves all fours, strength is normal, 18:47 ECG was reviewed by the Attending Physician. Vital Signs: 17:16 BP 161 / 90; Pulse 122; Resp 16; Temp 97; Pulse Ox 99% ; ko1 18:23 BP 152 / 78; Pulse 110; Pulse Ox 97% on R/A; Pain 8/10; tm6 19:13 BP 139 / 93; Pulse 110; Resp 16; Pulse Ox 94% ; ph 20:15 BP 170 / 86; Pulse 118; Resp 16; Pulse Ox 94% ; ph 21:15 BP 138 / 79; Pulse 113; Resp 16; Pulse Ox 100% on Nebulizer Mask; ph 18:23 Pain Scale: Adult tm6 MDM: 17:21 Patient medically screened. [facility] 21:55 Data reviewed: vital signs, nurses notes, lab test result(s), EKG, radiologic studies, cp CT scan, plain films, and as a result, I will admit patient. 21:55 Differential diagnosis: bronchitis, flu, pneumonia, sepsis, uti, pyelonephritis. cp Antibiotic administration: Levaquin given. Management of patient was discussed with the following: Hospitalist: DR Starkey will admit after discussion. I considered the following discharge prescriptions or medication management in the emergency department Medications were administered in the Emergency Department. See MAR. Independent interpretation of the following test(s) in the Emergency Department EKG: See my EKG interpretation above. Care significantly affected by the following chronic conditions: Diabetes, Hypertension. Counseling: I had a detailed discussion with the patient and/or guardian regarding the historical points, exam findings, and any diagnostic results supporting the discharge/admit diagnosis, lab results, radiology results. Response to treatment: the patient's symptoms have mildly improved after treatment. 01/19 17: Order name: Influenza Screen (a \T\ B); Complete Time: 19:02 cp 01/19 Order name: SARS RAPID; Complete Time: : cp 01/1934 Order name: Blood Culture Adult (2) cp 01/19 17:34 Order name: CBC with Diff; Complete Time: 19: cp 01/19 19:02 Interpretation: Normal except: RBC 3.44; HGB 11.7; HCT 34.1; DAMARIS% 82.7; LYM% 10.0; NEUT cp A 8.3. 01/19 17: Order name: CMP; Complete Time: 19:02 cp 01/19 19:02 Interpretation: Normal except: NA 135; GLUC 395; BUN 34; CRE 1.25; GFR 47; ALK 162; ALB cp 3.1; GLOB 4.2; A/G 0.7. 01/19 Order name: Lactate w/ 2H reflex if indic.; Complete Time: 19: cp 01/1934 Order name: Protime (+inr); Complete Time: 19: cp 01/1934 Order name: Ptt, Activated; Complete Time: 19: cp 01/1934 Order name: Urinalysis w/ reflexes; Complete Time: 20:14 cp 01/19 20:15 Interpretation: Normal except: [facility] Extremely Turbid; UGLUC 3+; UKET 1+; UBLD 1+; UPROT cp 3+; UESTR 75; UBACT Loaded. 01/19 17:34 Order name: Troponin High Sensitivity; Complete Time: 19:02 cp 01/19 21:19 Order name: Glucose, Ancillary Testing; Complete Time: 22:37 EDMS 01/19 21:21 Order name: Glucose, Ancillary Testing EDMS 01/19 21:24 Order name: Urinalysis w/ reflexes EDMS 01/19 21:24 Order name: Lipid Profile EDMS 01/19 21:24 Order name: Lipid Profile EDMS 01/19 21:25 Order name: Procalcitonin; Complete Time: 22:37 EDMS 01/19 21:59 Order name: Hemoglobin A1c; Complete Time: 22:37 EDMS 01/20 01:31 Order name: Glucose, Ancillary Testing EDMS 01/19 17:34 Order name: Chest Single View XRAY; Complete Time: 18:23 cp 01/19 19:06 Order name: CT Chest For PE Angio; Complete Time: 20:14 cp 01/19 21:58 Order name: RC SPUTUM COLLECTION / TX EDMS 01/19 17:34 Order name: EKG; Complete Time: 17:35 cp 01/19 17:34 Order name: Accucheck; Complete Time: 18:44 cp 01/19 17:34 Order name: Cardiac monitoring; Complete Time: 18:44 cp 01/19 17:34 Order name: EKG - Nurse/Tech; Complete Time: 18:44 cp 01/19 17:34 Order name: IV Saline Lock - Large Bore; Complete Time: 18:10 cp 01/19 17:34 Order name: Labs collected and sent; Complete Time: 18:10 cp 01/19 17:34 Order name: O2 Per Protocol; Complete Time: 18:10 cp 01/19 17:34 Order name: O2 Sat Monitoring; Complete Time: 18:10 cp 01/19 17:34 Order name: Vital Signs; Complete Time: 18:44 cp EC:47 Rate is 112 beats/min. Rhythm is regular. UT interval is normal. QRS interval is cp normal. QT interval is normal. T waves are Inverted in leads aVL, aVR. Interpreted by me. Reviewed by me. Administered Medications: 18:44 Drug: morphine IVP or IV 2 mg IVP once over 4 mins Route: IVP; Infused Over: 4 mins; tm6 Site: right antecubital; 19:20 Follow up: Response: No adverse reaction; Marked relief of symptoms; Pain is decreased; ha1 RASS: Alert and Calm (0) 19:27 Drug: Insulin Regular Human IVP 10 units IVP once {Co-Signature: mt4 (Saeed Lee RN).} Route: IVP; Site: right antecubital; 23:53 Follow up: Response: Marked relief of symptoms ph 20:44 Drug: NS 0.9% IV 1000 ml IV at 1 bolus Per protocol; to be given as a bolus over 60 ph minutes Route: IV; Rate: 1 bolus; Site: right antecubital; 01/20 00:00 Follow up: Response: No adverse reaction; IV Status: Completed infusion; IV Intake: ha1 1000ml 01/19 20:45 Drug: levofloxacin IVPB 750 mg 150 ml IVPB once over 90 mins Volume: 150 ml; Route: ph IVPB; Infused Over: 90 mins; Site: right antecubital; 22:50 Follow up: Response: No adverse reaction; IV Status: Completed infusion; IV Intake: ha1 100ml 21:14 Drug: Tussionex Pennkinetic ER PO Suspension 5 ml PO once Route: PO; ph 23:53 Follow up: Response: Marked relief of symptoms ph 21:31 Drug: Levalbuterol Inhalation 1.25 mg Inhalation once Route: Inhalation; ph 22:00 Follow up: Response: No adverse reaction; Marked relief of symptoms ha1 Disposition Summary: 01/20/24 21:52 Hospitalization Ordered Notes: Hospitalization Status: Inpatient Admission [facility] Provider: Prince Lalito Panda [facility] Condition: Stable ha1 Bed/Room Type: Standard [facility] Room Assignment: (01/20/24 21:54) ha1 Problem: new cp Symptoms: have improved cp Diagnosis - Pneumonia due to other specified bacteria ha1 - UTI/ Urinary tract infection, site not specified cp - Diabetes mellitus due to underlying condition with hyperglycemia cp Forms: - Medication Reconciliation Form ha1 - SBAR form ha1 - Leadership Thank You Letter 1 Addendum: 01/24/2024 09:41 Co-signature as Attending Physician, Hiram Main MD I reviewed the patient's care r n provided by the Advanced Practice Provider and agree with the diagnosis and treatment plan. Signatures: Dispatcher [employer] EDMS Cliff Desai MD MD cha Nieto, Roman, MD MD rn Hall, Patricia RN RN Cliff Little PA PA cp Ayala, Heidy, RN RN ha1 Nataliia Lord, RN RN ko1 Micha Garner, RN RN tm6 [facility], Mariela RN mt4 Corrections: (The following items were deleted from the chart) 01/19 17:35 17:35 Influenza Screen (A \T\ B)+BA.LAB.BRZ ordered. EDMS EDMS 17:35 17:35 SARS-COV-2 Antigen Rapid+I.LAB.BRZ ordered. EDMS EDMS 17:35 17:35 BLOOD CULTURE*+BA.LAB.BRZ ordered. EDMS EDMS 17:35 17:35 CBC+H.LAB.BRZ ordered. EDMS EDMS 17:35 17:35 COMPREHENSIVE METABOLIC PANEL+C.LAB.BRZ ordered. EDMS EDMS 17:35 17:35 LACTATE+C.LAB.BRZ ordered. EDMS EDMS 17:35 17:35 PROTIME (+INR)+COAG.LAB.BRZ ordered. EDMS EDMS 17:35 17:35 PTT, ACTIVATED+COAG.LAB.BRZ ordered. EDMS EDMS 17:35 17:35 Urinalysis+U.LAB.BRZ ordered. EDMS EDMS 17:35 17:35 Troponin High Sensitivity+C.LAB.BRZ ordered. EDMS EDMS 21:54 21:52 ha1 ha1
--- NOTE | 2024-01-20 21:53 | ER ---
Nurse's Notes [facility] Name: Lisa Min Age: 68 yrs Sex: Female : 1955 Arrival Date: 01/20/2024 Time: 17:09 Bed 3 Private MD: Diagnosis: Pneumonia due to other specified bacteria;UTI/ Urinary tract infection, site not specified;Diabetes mellitus due to underlying condition with hyperglycemia Presentation: 01/19 17:16 Chief complaint: Patient states: 2 weeks of cough, chills, congestion, slightly sore ko1 throat, fever. Did OTC and saw PCP. Coronavirus screen: chills, congestion, cough unrelated to allergies, fever, headache, runny nose, sore throat. Ebola Screen: No symptoms or risks identified at this time. Initial Sepsis Screen: Does the patient meet any 2 criteria? No. Patient's initial sepsis screen is negative. Does the patient have a suspected source of infection? No. Patient's initial sepsis screen is negative. Risk Assessment: Do you want to hurt yourself or someone else? Patient reports no desire to harm self or others. Onset of symptoms is unknown. 17:16 Method Of Arrival: Ambulatory ko1 17:16 Acuity: TAMMY 4 ko1 17:29 Acuity: TAMMY 3 ph Triage Assessment: 17:19 General: Appears uncomfortable, ill, Behavior is calm, cooperative, appropriate for ko1 age. Pain: Complains of pain in all over. Respiratory: Breath sounds are clear bilaterally. Historical: - Allergies: 17:19 No Known Allergies; ko1 - PMHx: 17:19 Diabetes - IDDM; Hypertension; Coronary atherosclerosis; ko1 - PSHx: 17:19 bypass; ko1 - Immunization history:: Adult Immunizations up to date. - Infectious Disease History:: Denies. - Social history:: Smoking status: Patient denies any tobacco usage or history of. Screenin:44 [facility] ED Fall Risk Assessment (Adult) History of falling in the last 3 months, tm6 including since admission No falls in past 3 months (0 pts) Confusion or Disorientation No (0 pts) Intoxicated or Sedated No (0 pts) Impaired Gait No (0 pts) Mobility Assist Device Used No (0 pt) Altered Elimination No (0 pt) Score/Fall Risk Level 0 - 2 = Low Risk Oriented to surroundings, Maintained a safe environment, Educated pt \T\ family on fall prevention, incl call for assistance when getting out of bed. Abuse screen: Denies threats or abuse. Denies injuries from another. Nutritional screening: No deficits noted. Tuberculosis screening: No symptoms or risk factors identified. Assessment: 18:44 General: Appears uncomfortable, Behavior is calm, cooperative. Pain: Complains of pain tm6 in head, general body aches Pain currently is 8 out of 10 on a pain scale. Quality of pain is described as aching, Pain began two weeks ago. Neuro: Level of Consciousness is awake, alert, obeys commands, Oriented to person, place, time, situation, Reports headache since two weeks. Cardiovascular: Patient's skin is warm and dry. Rhythm is sinus tachycardia. Respiratory: Reports cough that is non-productive, since two weeks ago Airway is patent Respiratory effort is even, unlabored, Respiratory pattern is regular, symmetrical. Respiratory: Onset: The symptoms/episode began/occurred two weeks ago. Respiratory:. GI: No signs and/or symptoms were reported involving the gastrointestinal system. Abdomen is round. : No signs and/or symptoms were reported regarding the genitourinary system. EENT: No signs and/or symptoms were reported regarding the EENT system. Derm: No signs and/or symptoms reported regarding the dermatologic system. Musculoskeletal: Reports pain in head, general body since two weeks ago. Pain is 8 out of 10 on a pain scale. 19:13 General: Appears in no apparent distress. comfortable, Behavior is calm, cooperative, ph appropriate for age. Respiratory: Reports cough that is non-productive, dry, Onset: The symptoms/episode began/occurred 2 WEEKS. 19:13 Reassessment: ASSUMED CARE OF PT. PT SITTING IN BED. NO DISTRESS NOTED. DRY HACKING ph COUGH NOTED. VS STABLE. PT UP TO GIVE A URINE SAMPLE. GAIT STEADY. 20:30 Reassessment: Patient and/or family updated on plan of care and expected duration. Pain ha1 level reassessed. Patient is alert, oriented x 3, equal unlabored respirations, skin warm/dry/pink. Vital Signs: 17:16 BP 161 / 90; Pulse 122; Resp 16; Temp 97; Pulse Ox 99% ; ko1 18:23 BP 152 / 78; Pulse 110; Pulse Ox 97% on R/A; Pain 8/10; tm6 19:13 BP 139 / 93; Pulse 110; Resp 16; Pulse Ox 94% ; ph 20:15 BP 170 / 86; Pulse 118; Resp 16; Pulse Ox 94% ; ph 21:15 BP 138 / 79; Pulse 113; Resp 16; Pulse Ox 100% on Nebulizer Mask; ph 18:23 Pain Scale: Adult tm6 ED Course: 17:15 Patient arrived in ED. im 17:17 Cliff Grant PA is PHCP. cp 17:17 Hiram Main MD is Attending Physician. cp 17:19 Triage completed. ko1 17:19 Arm band placed on right wrist. Patient placed in an exam room, on a stretcher, on ko1 pulse oximetry, Patient notified of wait time. 17:21 Pattie Fernandez, DANICA is Primary Nurse. ph 18:09 Inserted saline lock: 22 gauge in right antecubital area, using aseptic technique. tm6 Blood collected. Flushed with 10 mL NS. 18:10 Blood Culture Adult (2) Sent. tm6 18:10 CBC with Diff Sent. tm6 18:10 CMP Sent. tm6 18:10 Lactate w/ 2H reflex if indic. Sent. tm6 18:10 Protime (+inr) Sent. tm6 18:10 Ptt, Activated Sent. tm6 18:10 SARS RAPID Sent. tm6 18:10 Influenza Screen (a \T\ B) Sent. tm6 18:12 Chest Single View XRAY In Process Unspecified. EDMS 18:43 EKG done, by ED staff, reviewed by Cliff IGLESIAS. tm6 18:44 Patient has correct armband on for positive identification. Placed in gown. Bed in low tm6 position. Call light in reach. Side rails up X 1. Provided Education on: use of call jewell. Client placed on continuous cardiac and pulse oximetry monitoring. NIBP monitoring applied. satellite project site monitor on. Pulse ox on. NIBP on. Door closed. Noise minimized. Lights dimmed. Warm blanket given. Pillow given. 19:36 CT Chest For PE Angio In Process Unspecified. EDMS 21:24 Glucose, Ancillary Testing Sent. ha1 21:52 Prince Starkey MD is Hospitalizing Provider. ha1 01/20 01:36 No provider procedures requiring assistance completed. Patient admitted, IV remains in ha1 place. Administered Medications: 01/19 18:44 Drug: morphine IVP or IV 2 mg IVP once over 4 mins Route: IVP; Infused Over: 4 mins; tm6 Site: right antecubital; 19:20 Follow up: Response: No adverse reaction; Marked relief of symptoms; Pain is decreased; ha1 RASS: Alert and Calm (0) 19:27 Drug: Insulin Regular Human IVP 10 units IVP once {Co-Signature: mt4 (Saeed Lee RN).} Route: IVP; Site: right antecubital; 23:53 Follow up: Response: Marked relief of symptoms ph 20:44 Drug: NS 0.9% IV 1000 ml IV at 1 bolus Per protocol; to be given as a bolus over 60 ph minutes Route: IV; Rate: 1 bolus; Site: right antecubital; 01/20 00:00 Follow up: Response: No adverse reaction; IV Status: Completed infusion; IV Intake: ha1 1000ml 01/19 20:45 Drug: levofloxacin IVPB 750 mg 150 ml IVPB once over 90 mins Volume: 150 ml; Route: ph IVPB; Infused Over: 90 mins; Site: right antecubital; 22:50 Follow up: Response: No adverse reaction; IV Status: Completed infusion; IV Intake: ha1 100ml 21:14 Drug: Tussionex Pennkinetic ER PO Suspension 5 ml PO once Route: PO; ph 23:53 Follow up: Response: Marked relief of symptoms ph 21:31 Drug: Levalbuterol Inhalation 1.25 mg Inhalation once Route: Inhalation; ph 22:00 Follow up: Response: No adverse reaction; Marked relief of symptoms ha1 Medication: 18:44 VIS not applicable for this client. tm6 Intake: 22:50 IV: 100ml; Total: 100ml. ha1 01/20 00:00 IV: 1000ml; Total: 1100ml. ha1 Outcome: 01/19 21:52 Decision to Hospitalize by Provider. 1 01/20 01:36 Admitted to Med/surg accompanied by nurse, via wheelchair, with chart, ha1 Condition: stable Instructed on the need for admit, Demonstrated understanding of instructions, 01:37 Patient left the ED. 1 Signatures: Dispatcher [employer] Pattie Salvador RN RN ph Cliff Grant PA PA cp Ayala, Heidy RN RN ha1 Nataliia Lord RN RN ko1 Christianne Vaz Tawney RN RN tm6 Saeed Lee RN mt4 Corrections: (The following items were deleted from the chart) 01/19 19:17 19:15 Reassessment: ASSUMED CARE OF PT. PT SITTING IN BED. NO DISTRESS NOTED. DRY ph HACKING COUGH NOTED. VS STABLE. PT UP TO GIVE A URINE SAMPLE. GAIT STEADY. ph
[2024-01-20] MEDS ORDERED: D10W 125 ML IV PRN (21:57)
[2024-01-20] MEDS ORDERED: GLUCAGON 1 MG/VIAL IM PRN (21:57)
[2024-01-20] MEDS ORDERED: D5 0.45 NS 1,000 ML IV SCH (22:00)
[2024-01-20] MEDS: IPRATROPIUM BROM 0.5MG/2.5ML NEB SCH (23:48)
[2024-01-20] MEDS: ALBUTEROL 2.5 MG/3 ML NEB SOL NEB SCH (23:48)
[2024-01-21] MEDS: NA CHLORIDE 0.9% 1,000 ML IV SCH (01:08)
[2024-01-21] MEDS: ACETAMINOPHEN 500 MG TAB PO PRN (01:44)
[2024-01-21] MEDS: INSULIN REGULAR (HUMAN) 100 UNIT/ML SQ SCH (01:46)
[2024-01-21] MEDS: MELATONIN 3 MG TABLET PO PRN (02:16)
[2024-01-21 02:41] VITALS: BMI 27.6
[2024-01-21] MEDS ORDERED: ASPIRIN PO PRN (03:30)
[2024-01-21] MEDS ORDERED: BENZONATATE 100 MG CAP PO PRN (03:30)
[2024-01-21] MEDS ORDERED: ACETAMINOPHEN PO PRN (03:30)
[2024-01-21] MEDS ORDERED: CAFFEINE PO PRN (03:30)
[2024-01-21] MEDS: METOPROLOL XL 50 MG TAB PO SCH (03:55)
[2024-01-21] MEDS: BENZONATATE 100 MG CAP PO PRN (03:57)
[2024-01-21 07:36] LABS: Absolute Eosinophils 0.1 K/uL (0-0.5); Absolute Monocytes 0.4 K/uL (0.1-1.3); Absolute Neutrophil 2.9 K/uL (1.8-8.0); Basophils % 0.4 % (0-1.3); Eosinophils % 2.8 % (0-4.4); Hematocrit 29.5 % (36.0-45.0); Hemoglobin 10.2 g/dL (12.0-15.0); Lymphocytes % 23.1 % (15.3-44.8); MCHC 34.6 g/dL (32.0-36.0); MCV 98.3 fL (80-100); MPV 9.2 fL (7.6-11.3); Monocytes % 9.9 % (3.3-12.3); Neutrophils % 63.8 % (41.7-73.7); Platelets 161 thou/uL (152-406); Red Cell Distribution Width 12.8 % (12.1-15.2)
[2024-01-21 07:46] LABS: Anion Gap 7.4 mEq/L (5.0-15.0); Potassium 4.4 mEq/L (3.5-5.1)
[2024-01-21] MEDS: [UNRECOGNIZED DRUG - OTHER] PO SCH (09:00)
[2024-01-21] MEDS ORDERED: HOME MED 1 EA UNK (Insulin Aspart [Novolog Flexpen] 100 UNIT/ML Insuln.Pen) SQ SCH (09:00)
[2024-01-21] MEDS: KETO PO SCH (09:00)
[2024-01-21] MEDS: INSULIN GLARGINE 100 UNIT/ML SQ SCH (09:59)
[2024-01-21] MEDS: INSULIN LISPRO 100 UNIT/1 ML SQ SCH (09:59)
[2024-01-21] MEDS: ENOXAPARIN 40 MG/0.4 ML SQ SCH (10:00)
[2024-01-21] MEDS: CEFTRIAXONE 1,000 MG in NA CHLORIDE 0.9% 50 ML IVPB SCH (10:00)
[2024-01-21] MEDS: AZITHROMYCIN IV 500 MG in NA CHLORIDE 0.9% 250 ML IVPB SCH (10:00)
[2024-01-21] MEDS: GUAIFENESIN 600 MG SA TAB PO SCH (10:01)
[2024-01-21] MEDS: GABAPENTIN 300 MG CAP PO SCH (10:01)
--- NOTE | 2024-01-21 13:39 | P.PN ---
Subjective Date of Service: 01/21/24 Chief Complaint: Right upper lobe pneumonia failed outpatient therapy Subjective: Improving (Is 68 years of age has been sick for about 3 to 4 weeks complaining of cough congestion of breath patient therapy some wheezing worse in the past 2 weeks and it appeared in the hospital) Review of Systems 10-point ROS is otherwise unremarkable General: Weakness Respiratory: Cough, Shortness of Breath Physical Examination - Vital Signs Temperature: 98.6 F Blood Pressure: 140/66 Pulse: 90 Respirations: 20 Pulse Ox (%): 97 - Physical Exam General: Oriented x3 Neck: Supple Respiratory: Diminished, Expiratory wheezes (Wheezing noted on the left lung) Gastrointestinal: Normal bowel sounds, Soft and benign - Studies Laboratory Data (last 24 hrs) 01/20/24 01/20/24 01/20/24 18:01 18:01 18:01 WBC 10.10 Hgb 11.7 L Hct 34.1 L Plt Count 192 PT 11.5 INR 1.03 APTT 41.1 H Sodium 135 L Potassium 4.1 BUN 34 H Creatinine 1.25 H Glucose 395 H Total Bilirubin 0.5 AST 27 ALT 55 Alkaline Phosphatase 162 H Microbiology Data (last 24 hrs): 01/20/24 17:52 Nasopharnyx Influenza Type A Antigen Screen - Final 01/20/24 17:52 Nasopharnyx Influenza Type B Antigen Screen - Final Assessment And Plan - Current Problems (Diagnosis) (1) Right upper lobe pneumonia Current Visit: Yes Status: Acute Plan: Is 68 years of age has been sick for the past 3 to 4 weeks failed outpatient therapy admitted with increasing wheezing shortness of breath labs reviewed white count is normal hemoglobin A1c is very elevated degeneration vital signs are all stable will discharge tomorrow on levofloxacin bronchodilator Qualifiers: Pneumonia type: due to unspecified organism Qualified Code(s): J18.9 - Pneumonia, unspecified organism Discharge Plan: Home Plan to discharge in: 24 Hours
--- NOTE | 2024-01-21 14:07 | EKG ---
Test Date: 2024-01-20 Test Time: 18:40:37 [employer]: SANTHOS[facility] MEASUREMENT RESULTS: Intervals: Rate: 112 MI: 160 QRSD: 70 QT: 338 QTc: 461 Moca: P: 72 MI: 160 QRS: -5 T: 72 INTERPRETIVE STATEMENTS: Sinus tachycardia Otherwise normal ECG Compared to ECG 12/08/2022 08:39:25 Sinus rhythm no longer present T-wave abnormality no longer present Prolonged QT interval no longer present Electronically Signed On 01-21-24 14:06:38 CDT by Miquel Gomez
[2024-01-21] MEDS ORDERED: ZOLPIDEM TARTRATE 5 MG TABLET PO PRN (20:15)
[2024-01-21] MEDS: ATORVASTATIN 40 MG TAB PO SCH (20:32)
[2024-01-21] MEDS: LOSARTAN POTASSIUM 50 MG TABLET PO SCH (20:32)
[2024-01-21] MEDS: DULOXETINE 30 MG CAP PO SCH (20:32)
[2024-01-21] MEDS: MONTELUKAST 10 MG TAB PO SCH (20:33)
[2024-01-21] MEDS: DULERA 200/5 (MOMETASONE/FORMOTEROL) INHALER IH SCH (20:35)
[2024-01-21] MEDS: ZOLPIDEM TARTRATE 5 MG TABLET PO PRN (22:20)
[2024-01-22 00:44] VITALS: O2SAT 96
[2024-01-22 06:23] LABS: Absolute Eosinophils 0.3 K/uL (0-0.5); Absolute Lymphocytes (CBC) 1.5 K/uL (0.7-4.9); Absolute Monocytes 0.7 K/uL (0.1-1.3); Absolute Neutrophil 4.8 K/uL (1.8-8.0); Basophils % 0.4 % (0-1.3); Hematocrit 32.3 % (36.0-45.0); Hemoglobin 10.9 g/dL (12.0-15.0); Lymphocytes % 20.4 % (15.3-44.8); MCH 32.7 pg (27.0-35.0); MCHC 33.7 g/dL (32.0-36.0); MPV 8.5 fL (7.6-11.3); Monocytes % 9.4 % (3.3-12.3); Neutrophils % 65.8 % (41.7-73.7); Nucleated Red Blood Cells % 0.1 % (0-0); Platelets 188 thou/uL (152-406); RBC Red Blood Cell Count 3.33 M/uL (3.86-4.86)
[2024-01-22 06:34] LABS: Anion Gap 7.9 mEq/L (5.0-15.0); Potassium 3.9 mEq/L (3.5-5.1)
[2024-01-22] MEDS: levoFLOXacin 750 MG TAB PO SCH (08:17)
[2024-01-22 08:50] VITALS: BP 150/79; TEMP 97.5
--- NOTE | 2024-01-22 10:26 | P.DS ---
Admission Date: 01/20/24 Discharge Date: 01/22/24 Disposition: ROUTINE DISCHARGE Discharge Condition: FAIR Reason for Admission: Right upper lobe pneumonia failed outpatient therapy - Problems (1) Right upper lobe pneumonia Current Visit: Yes Status: Acute Qualifiers: Pneumonia type: due to unspecified organism Qualified Code(s): J18.9 - Pneumonia, unspecified organism Brief History of Present Illness: Patient is 68 years of age failed outpatient therapy for shortness of breath possible right upper lobe pneumonia Hospital Course: Patient was admitted to the hospital was treated conservatively with antibiotics bronchodilators CT scan showed right upper lobe pneumonia with groundglass opacities. Cordell data unremarkable the day of discharge patient was alert oriented responsive cooperative still had some wheezing to be discharged home on Dulera and have also started patient on Levaquin for 5 days vital signs oxygenation satisfactory labs unremarkable apart from mild normocytic anemia follow-up with me in a couple of weeks Vital Signs/Physical Exam: Temp Pulse Resp BP Pulse Ox 97.5 F 92 H 16 150/79 H 97 01/22/24 08:00 01/22/24 08:00 01/22/24 08:00 01/22/24 08:00 01/22/24 08:00 Laboratory Data at Discharge: WBC 7.40 thou/uL (4.3-10.9) 01/22/24 05:56 Hgb 10.9 g/dL (12.0-15.0) L 01/22/24 05:56 Hct 32.3 % (36.0-45.0) L 01/22/24 05:56 Plt Count 188 thou/uL (152-406) 01/22/24 05:56 PT 11.5 SECONDS (9.4-12.5) 01/20/24 18:01 INR 1.03 01/20/24 18:01 APTT 41.1 SECONDS (24.3-36.9) H 01/20/24 18:01 Sodium 141 mEq/L (136-145) 01/22/24 05:56 Potassium 3.9 mEq/L (3.5-5.1) 01/22/24 05:56 BUN 18 mg/dL (7-18) 01/22/24 05:56 Creatinine 0.91 mg/dL (0.55-1.02) 01/22/24 05:56 Glucose 143 mg/dL (74-106) H 01/22/24 05:56 Total Bilirubin 0.5 mg/dL (0.2-1.0) 01/20/24 18:01 AST 27 U/L (15-37) 01/20/24 18:01 ALT 55 U/L (13-56) 01/20/24 18:01 Alkaline Phosphatase 162 U/L (45-117) H 01/20/24 18:01 Triglycerides 178 mg/dL (<150) H 01/21/24 06:54 Cholesterol 138 mg/dL (<200) 01/21/24 06:54 HDL Cholesterol 51 mg/dL (40-60) 01/21/24 06:54 Cholesterol/HDL Ratio 2.71 01/21/24 06:54 Home Medications: Duloxetine HCl 60 mg PO BEDTIME 11/09/22 Gabapentin 300 mg PO TID 11/09/22 Losartan Potassium [Cozaar] 100 mg PO BEDTIME 11/09/22 Atorvastatin Calcium 40 mg PO BEDTIME 01/21/24 Benzonatate [Tessalon Perle] 100 mg PO TID PRN 01/21/24 Insulin Aspart [Novolog Flexpen] 14 unit SQ BID 01/21/24 Insulin Glargine,Hum.rec.anlog [Lantus] 32 unit SQ BID 01/21/24 Keto+Acv 1 tab PO DAILY 01/21/24 Metoprolol Succinate [Toprol Xl*] 50 mg PO BEDTIME 01/21/24 Montelukast [Singulair*] 5 mg PO BEDTIME 01/21/24 Tylenol/Aspirin/Caffeine 1 tab PO DAILY PRN 01/21/24 levoFLOXacin [Levaquin*] 750 mg PO DAILY 5 Days #5 tab 01/22/24 New Medications: levoFLOXacin [Levaquin*] 750 mg PO DAILY 5 Days #5 tab Physician Discharge Instructions: Please give her the sample of Kathy from the hospital to take 2 puffs twice a day Diet: Regular Activity: Ad charan Followup: Chris Su MD [ACTIVE - CAN ADMIT] - Lacho Cardenas DO [Primary Care Provider] -
== END 2024-01-22 12:35 | disposition home or self-care (01) | DRG 194 ==
LOC: ER 17:09 → ERHOLD 21:19 → 2ND 01-21 00:45
PROVIDERS: ADMIT Internal Medicine; ATTEND Internal Medicine Sleep Medicine
DX: J18.9 Pneumonia, unspecified organism (principal); N17.9 Acute kidney failure, unspecified; N39.0 Urinary tract infection, site not specified; I10 Essential (primary) hypertension; D64.9 Anemia, unspecified; E11.65 Type 2 diabetes mellitus with hyperglycemia; I25.10 Atherosclerotic heart disease of native coronary artery without angina pectoris; Z79.4 Long term (current) use of insulin; Z90.3 Acquired absence of stomach [part of]; Z95.1 Presence of aortocoronary bypass graft; Z11.52 Encounter for screening for COVID-19; Z90.49 Acquired absence of other specified parts of digestive tract; Z79.899 Other long term (current) drug therapy; Z90.710 Acquired absence of both cervix and uterus
CPT/HCPCS: 36415; 71045; 71275; 80048; 80053; 80061; 81001; 82947; 83036; 83605; 84145; 84484; 85025; 85610; 85730; 87040; 87070; 87205; 87804; 87811; 93005; 94640; 94760; J0696; J1650; J2270; J3535; J7030; J7050; J7613; J7614; J7644; Q9967